=== PATIENT | female | born 1945 | race Caucasian/White ===

== ENCOUNTER 2017-03-09 19:49 | Observation (INO) | payer MEDICARE ==
[~2017-03-09] VITALS: Ht 162.6 cm; Wt 51.0 kg
[~2017-03-09 19:49] MED LIST: ATOR20TA42 PO; LORTA5 PO; METO50TA PO; ZOFR4TAB3 SL
[2017-03-09 19:51] VITALS: BP 224/113; PULSE 99; RESP 16; TEMP 98.1; O2SAT 98
[2017-03-09] MEDS ORDERED: METO50TA PO (21:03)
[2017-03-09] MEDS ORDERED: LIPI20TA PO (21:03)
--- NOTE | 2017-03-09 21:08 | RADRPT ---
EXAM DATE/TIME: 03/09/2017 20:36 [facility] COMPARISON: CHEST SINGLE AP, July 16, 2014, 10:28. INDICATIONS : Right side chest pain after falling MEDICAL HISTORY : Carcinoma, breast. SURGICAL HISTORY : Unknown ENCOUNTER: Initial ACUITY: 1 day PAIN SCORE: 6/10 LOCATION: Right chest FINDINGS: A single view of the chest demonstrates the lungs to be symmetrically aerated without evidence of mas s, infiltrate or effusion. The cardiomediastinal contours are unremarkable. Osseous structures are grossly intact. CONCLUSION: No acute cardiopulmonary disease demonstrated. Juarez Perez MD on March 09, 2017 at 21:06 Board Certified Radiologist. This report was verified electronically.
--- NOTE | 2017-03-09 21:13 | RADRPT ---
EXAM DATE/TIME: 03/09/2017 20:37 [facility] COMPARISON: RIBS RIGHT(W PA CXR MIN 3VWS), July 18, 2014, 11:05. INDICATIONS : Recent fall, right shoulder pain MEDICAL HISTORY : Carcinoma, breast. Fractured right clavicle 3 years ago SURGICAL HISTORY : Unknown ENCOUNTER: Initial ACUITY: 1 day PAIN SCORE: 6/10 LOCATION: Right shoulder FINDINGS: No acute fracture or subluxation seen of the right shoulder. There is an old, healed fracture of the distal end of the clavicles. 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 There is deve lopmental lateral downsloping of the acromion and mild subacromial spurring. Nonacute right rib fractures are noted. CONCLUSION: 1. No acute fracture or subluxation of the right shoulder. 2. Old fractures of multiple right ribs and the distal end of the right clavicle. Juarez Perez MD on March 09, 2017 at 21:10 Board Certified Radiologist. This report was verified electronically.
--- NOTE | 2017-03-09 21:36 | PD ---
HPI Chief Complaint: Injury Time Seen by Provider: 21:30 Travel History International Travel<30 days: No Contact w/Intl Traveler<30days: No Traveled to known affect area: No History of Present Illness HPI 71-year-old female presents to the ER today brought in by her family, apparently had a loss of balance and fall onto the right shoulder, EMS was called initially and had seen the patient but patient had refused transport on scene. According to patient's daughter, apparently she did have a loss of consciousness when she talked to EMS but the patient denies having lost consciousness. She currently complains of sternal pain especially with movements. She states that he got worse when the EMS tried to get her on a stretcher. She also complained of right shoulder pain. She denies any shortness of breath, or any other issues or injuries. She currently complains of 5-10 pain mostly in the right shoulder and sternal area. Modifying Factors: None Associated Signs & Symptoms: Lost balance and fall, possible head injury, sternal pain, right shoulder pain Risk Factors: Elderly PFSH Past Medical History Arthritis: Yes Asthma: No Heart Rhythm Problems: Yes (PT SAID SHE USED TO HAVE PROLAPSED MITRAL VALVE THAT "WENT AWAY") Cancer: Yes (RIGHT BREAST LUMPECTOMY 2000 w/ chemo, AXILLARY NODES) Cardiovascular Problems: Yes (MVP) High Cholesterol: Yes Chest Pain: No Congestive Heart Failure: No COPD: No Cerebrovascular Accident: No Diabetes: No Diminished Hearing: No GERD: No Glaucoma: No Headaches: No Hepatitis: No Hiatal Hernia: Yes Hypertension: Yes Musculoskeletal: Yes Neurologic: Yes (NEUROPATHY) Reproductive: No Respiratory: No Immunizations Current: Yes Migraines: No Myocardial Infarction: No Renal Failure: Yes Seizures: No Sleep Apnea: No Thyroid Disease: No Ulcer: No ?: Not Menopausal: Yes Past Surgical History Abdominal Surgery: No Appendectomy: No Cardiac Surgery: No Cholecystectomy: No Ear Surgery: No Endocrine Surgery: No Eye Surgery: No Genitourinary Surgery: No Gynecologic Surgery: Yes Oral Surgery: No Pacemaker: No Thoracic Surgery: No Tonsillectomy: Yes Other Surgery: Yes (LEFT WRIST/ RIGHT BREAST, RIGHT LYMPHNODES/lumpectomy) Social History Alcohol Use: Yes (2 DAILY) Tobacco Use: Yes (1 PPD) Substance Use: No Allergies-Medications (Allergen,Severity, Reaction): Coded Allergies: Penicillin (Unverified Allergy, Severe, 9/25/14) pt. states reaction was so long ago she no longer remembers reaction Sulfa (Unverified Adverse Reaction, Intermediate, 07/16/14) pt. states she gets yeast infections while on sulfa drugs Reported Meds & Prescriptions Reported Meds & Active Scripts Active Reported Metoprolol Tartrate 50 Mg Tab 50 Mg PO BID Lipitor (Atorvastatin Calcium) 20 Mg Tab 20 Mg PO HS Review of Systems Except as stated in HPI: all other systems reviewed are Neg Physical Exam Narrative GENERAL: Well-developed elderly white female patient in mild distress. Awake and oriented 3. Alcohol on breath. SKIN: Focused skin assessment warm/dry. HEAD: Atraumatic. Normocephalic. EYES: Pupils equal and round. No scleral icterus. No injection or drainage. ENT: No nasal bleeding or discharge. Mucous membranes pink and moist. NECK: Trachea midline. No JVD. CARDIOVASCULAR: Regular rate and rhythm. No murmur appreciated. RESPIRATORY: No accessory muscle use. Clear to auscultation. Breath sounds equal bilaterally. CHEST: Mildly tender to palpation of the anterior sternum area without deformity or crepitance. No retractions or use of accessory muscles. GASTROINTESTINAL: Abdomen soft, non-tender, nondistended. Hepatic and splenic margins not palpable. MUSCULOSKELETAL: No obvious deformities. No clubbing. No cyanosis. No edema. Right shoulder: Nontender to palpation. Nontender range of motion. No obvious acute deformities. NEUROLOGICAL: Awake and alert. No obvious cranial nerve deficits. Motor grossly within normal limits. Normal speech. PSYCHIATRIC: Appropriate mood and affect; insight and judgment normal. Data Data Last Documented VS Vital Signs Date Time Temp Pulse Resp B/P Pulse Ox O2 Delivery O2 Flow Rate FiO2 03/10/17 00:37 18 97 Room Air 03/09/17 19:51 98.1 99 224/113 Orders Shoulder, Complete (>2vws) (03/09/17 ) Chest, Single Ap (03/09/17 ) Ct Brain W/O Iv Contrast(Rout) (03/09/17 21:30) Ct Thorax/ Chest Wo Iv Contras (03/09/17 21:30) Ct Cerv Spine W/O Contrast (03/09/17 21:30) Acetamin-Hydrocod 325-5 Mg ([place] 5-325 (03/09/17 23:45) Electrocardiogram (03/10/17 00:26) Complete Blood Count With Diff (03/10/17:) Comprehensive Metabolic Panel (03/10/17:) Troponin I (03/10/17) Urinalysis - C+S If Indicated (03/10/17:) Ecg Monitoring (03/10/17:) Iv Access Insert/Monitor (03/10/17) Oximetry (03/10/17) Sodium Chloride 0.9% Flush (Ns Flush) (03/10/17 00:30) Labs Laboratory Tests Test 03/10/17 00:30 White Blood Count 9.4 TH/MM3 Red Blood Count 3.78 MIL/MM3 Hemoglobin 13.4 GM/DL Hematocrit 38.3 % Mean Corpuscular Volume 101.4 FL Mean Corpuscular Hemoglobin 35.6 PG Mean Corpuscular Hemoglobin 35.1 % Concent Red Cell Distribution Width 14.4 % Platelet Count 218 TH/MM3 Mean Platelet Volume 8.5 FL Neutrophils (%) (Auto) 79.4 % Lymphocytes (%) (Auto) 9.7 % Monocytes (%) (Auto) 9.6 % Eosinophils (%) (Auto) 0.5 % Basophils (%) (Auto) 0.8 % Neutrophils # (Auto) 7.5 TH/MM3 Lymphocytes # (Auto) 0.9 TH/MM3 Monocytes # (Auto) 0.9 TH/MM3 Eosinophils # (Auto) 0.0 TH/MM3 Basophils # (Auto) 0.1 TH/MM3 CBC Comment AUTO DIFF Differential Total Cells 100 Counted Neutrophils % (Manual) 73 % Band Neutrophils % 7 % Lymphocytes % 11 % Monocytes % 8 % Eosinophils % 1 % Neutrophils # (Manual) 7.5 TH/MM3 Differential Comment FINAL DIFF MANUAL Platelet Estimate NORMAL Platelet Morphology Comment NORMAL Sodium Level 139 MEQ/L Potassium Level 3.5 MEQ/L Chloride Level 100 MEQ/L Carbon Dioxide Level 27.1 MEQ/L Anion Gap 12 MEQ/L Blood Urea Nitrogen 9 MG/DL Creatinine 0.92 MG/DL Estimat Glomerular Filtration 60 ML/MIN Rate Random Glucose 101 MG/DL Calcium Level 9.5 MG/DL Total Bilirubin 1.1 MG/DL Aspartate Amino Transf 37 U/L (AST/SGOT) Alanine Aminotransferase 25 U/L (ALT/SGPT) Alkaline Phosphatase 79 U/L Troponin I 0.03 NG/ML Total Protein 7.8 GM/DL Albumin 4.1 GM/DL [facility] Medical Decision Making Medical Screen Exam Complete: Yes Emergency Medical Condition: Yes Medical Record Reviewed: Yes Interpretation(s) EKG shows NSR, no ST elevation or depression, and no arrhythmias. No significant T-wave inversions. Laboratory Tests Test 03/10/17 00:30 Red Blood Count 3.78 MIL/MM3 (4.00-5.30) Mean Corpuscular Volume 101.4 FL (80.0-100.0) Mean Corpuscular Hemoglobin 35.6 PG (27.0-34.0) Neutrophils (%) (Auto) 79.4 % (16.0-70.0) Monocytes (%) (Auto) 9.6 % (0.0-8.0) Lymphocytes # (Auto) 0.9 TH/MM3 (1.0-4.8) Neutrophils % (Manual) 73 % (16-70) Band Neutrophils % 7 % (0-6) Estimat Glomerular Filtration 60 ML/MIN (>89) Rate Total Bilirubin 1.1 MG/DL (0.2-1.0) Differential Diagnosis Loss of balance and fall, shoulder injury, sternal injury, possible head injury rule out acute intracranial injuries versus acute fractures or dislocations Narrative Course Initial workup shows a sternal fracture and rib fracture. She has no acute intracranial injuries. And initially I was contemplating releasing the patient. Patient is having a hard time getting up from bed, and apparently lives alone. Patient's relatives are fairly concerned because they state that they think that she is an alcoholic and she has had frequent falls, had been passing out and falling. At this point, workup was initiated. Workup did not show any signs of significant metabolic issues or other acute processes. At this point, patient is admitted for observation for further evaluation of syncopal episodes and also for pain control. Case was discussed with Dr. Arciniega for admission. He has requested that I place the patient on telemetry, out of bed with assistance, and heart healthy diet. Diagnosis Primary Impression: Syncopal episodes Additional Impressions: Sternal fracture Rib fracture Admitting Information Admitting Physician Requests: Admit Jeyson Barnett MD March 09, 2017 21:36
--- NOTE | 2017-03-09 22:40 | RADRPT ---
EXAM DATE/TIME: 03/09/2017 22:12 [facility] COMPARISON: CT BRAIN W/O CONTRAST, July 16, 2014, 11:06. INDICATIONS : Trauma; fall. RADIATION DOSE: 51.55 CTDIvol (mGy) MEDICAL HISTORY : Renal failure, chronic. Hypertension. Carcinoma, breast.Hiatal hernia SURGICAL HISTORY : None. ENCOUNTER: Initial ACUITY: 1 day PAIN SCALE: 5/10 LOCATION: cranial TECHNIQUE: Multiple contiguous axial images were obtained of the head. Using automated exposure control and adj ustment of the mA and/or kV according to patient size, radiation dose was kept as low as reasonably a chievable to obtain optimal diagnostic quality images. FINDINGS: No intracranial hemorrhage or hematoma. No mass, mass effect or midline shift. No evidence of an acut e ischemic event. Moderate ventriculomegaly is similar to the 2013 comparison. Skull is intact. CONCLUSION: No bleed or other acute intracranial abnormality. Long-term stable ventriculomegaly. Juarez Perez MD on March 09, 2017 at 22:37 Board Certified Radiologist. This report was verified electronically.
--- NOTE | 2017-03-09 22:54 | RADRPT ---
EXAM DATE/TIME: 03/09/2017 22:12 [facility] COMPARISON: No previous studies available for comparison. INDICATIONS : Trauma; fall. RADIATION DOSE: 3.33 CTDIvol (mGy) MEDICAL HISTORY : Renal failure, chronic. Hypertension. Carcinoma, breast. Hiatal hernia SURGICAL HISTORY : None. ENCOUNTER: Initial ACUITY: 1 day PAIN SCALE: 8/10 LOCATION: chest TECHNIQUE: Volumetric scanning of the chest was performed. Using automated exposure control and adjustment of t he mA and/or kV according to patient size, radiation dose was kept as low as reasonably achievable to obtain optimal diagnostic quality images. FINDINGS: There is a comminuted, minimally displaced fracture of the manubrium that is potentially acute and pl ease correlate clinically. The rest of the sternum is intact. No sternoclavicular subluxation. Multiple old right rib fractures are present. I don't see an acute rib fracture. Patient has a kyphotic thoracic spine. No thoracic spine fracture demonstrated. No infiltrate, effusion or pneumothorax. Mild pleural and parenchymal scarring of the right lung, carolyn nly at the apex and around the old right rib fractures. Normal heart size. There is right and left-sided coronary artery calcification. CONCLUSION: 1. Comminuted but minimally displaced fracture of the sternum, potentially acute. I don't see a media stinal hematoma, sternoclavicular subluxation or other acute complication. 2. Old right rib fractures. No acute rib fractures demonstrated. Juarez Perez MD on March 09, 2017 at 22:49 Board Certified Radiologist. This report was verified electronically.
--- NOTE | 2017-03-09 22:59 | RADRPT ---
EXAM DATE/TIME: 03/09/2017 22:12 [facility] COMPARISON: CT BRAIN W/O CONTRAST, March 09, 2017, 22:12. CT THORAX W/O CONTRAST, March 09, 2017, 22:12. INDICATIONS : Trauma; fall. RADIATION DOSE: 10.25 CTDIvol (mGy) MEDICAL HISTORY : Renal failure, chronic. Hypertension. Carcinoma, breast.Hiatal hernia SURGICAL HISTORY : None. ENCOUNTER: Initial ACUITY: 1 day PAIN SCALE: 5/10 LOCATION: neck TECHNIQUE: Volumetric scanning of the cervical spine was performed. Multiplanar reconstructions in the sagittal, coronal and oblique axial planes were performed. Using automated exposure control and adjustment o f the mA and/or kV according to patient size, radiation dose was kept as low as reasonably achievable to obtain optimal diagnostic quality images. FINDINGS: Cervical lordosis is exaggerated. No subluxations are demonstrated or other acute appearing malalignm ent. Vertebral bodies have normal height. No cortical break or trabecular disruption. There is moderate disc space narrowing from C3/C4-C6/C7 and moderate degrees of uncovertebral and fac et osteoarthritis essentially throughout. No perceptible on today's chest CT is a minimally displaced fracture posteriorly of the right first r ib end this is potentially acute, series 501 image 22. Fracture is near the costovertebral junction. CONCLUSION: Cervical spine is intact but there is a nondisplaced fracture posteriorly of the right first rib whic h is potentially acute. There is no pneumothorax or other associated acute complication seen. Juarez Perez MD on March 09, 2017 at 22:53 Board Certified Radiologist. This report was verified electronically.
[2017-03-09] MEDS ORDERED: ACETAMINOPHEN/HYDROcodone 325 MG/5 MG TAB PO ONE (23:45)
[2017-03-10] VITALS (10 sets, daily range): BP systolic 153–179; BP diastolic 82–95; PULSE 84–103; RESP 16–18; TEMP 98.2–99; O2SAT 94–99
[2017-03-10] MEDS ORDERED: SODIUM CHLORIDE 0.9% FLUSH 10 ML FLUSH IVF PRN (00:30)
[2017-03-10 00:54] LABS: AUTOMATED NEUTROPHIL # 7.5 TH/MM3 (1.8-7.7); BASOPHIL # 0.1 TH/MM3 (0-0.2); BASOPHIL % 0.8 % (0.0-2.0); EOSINOPHIL % 0.5 % (0.0-4.0); HEMATOCRIT 38.3 % (35.0-46.0); LYMPH % 9.7 % (9.0-44.0); LYMPHOCYTE # 0.9 TH/MM3 (1.0-4.8); MEAN CELL VOLUME 101.4 FL (80.0-100.0); MEAN CORPUSCULAR HEMOGLOBIN 35.6 PG (27.0-34.0); MEAN CORPUSCULAR HGB CONC 35.1 % (32.0-36.0); MONO % 9.6 % (0.0-8.0); NEUT % 79.4 % (16.0-70.0); PLATELET COUNT 218 TH/MM3 (150-450); RED BLOOD COUNT 3.78 MIL/MM3 (4.00-5.30); RED CELL DISTRIBUTION WIDTH 14.4 % (11.6-17.2); WHITE BLOOD COUNT 9.4 TH/MM3 (4.0-11.0)
[2017-03-10 01:05] LABS: ALT (GPT) 25 U/L (10-53); ANION GAP 12 MEQ/L (5-15); AST (GOT) 37 U/L (15-37); BICARBONATE 27.1 MEQ/L (21.0-32.0); BLOOD UREA NITROGEN 9 MG/DL (7-18); CHLORIDE 100 MEQ/L (98-107); GLOMERULAR FILTRATION RATE 60 ML/MIN (>89); POTASSIUM 3.5 MEQ/L (3.5-5.1); SODIUM (NA) 139 MEQ/L (136-145)
[2017-03-10 01:08] LABS: HEMO FLAGS AUTO DIFF
[2017-03-10 01:09] LABS: ALKALINE PHOSPHATASE 79 U/L (45-117); TOTAL BILIRUBIN ADULT 1.1 MG/DL (0.2-1.0)
[2017-03-10 02:10] LABS: BANDS 7 % (0-6); EOSINOPHILS 1 % (0-4); NEUTROPHIL # MANUAL DIFF 7.5 TH/MM3 (1.8-7.7); POLYS (SEG NEUTROPHILS) 73 % (16-70); WBC DIFF SAMPLE 100
[2017-03-10 02:11] LABS: PLATELET ESTIMATE SMEAR NORMAL (NORMAL); PLATELET MORPHOLOGY NORMAL (NORMAL); SCAN/DIFF FINAL DIFF MANUAL
[2017-03-10] MEDS ORDERED: ACETAMINOPHEN/HYDROcodone 325 MG/5 MG TAB PO PRN (04:45)
--- NOTE | 2017-03-10 13:39 | HHI.HP ---
HPI Service [facility] Hospitalists Primary Care Physician Anthony Cheung MD Admission Diagnosis questionable syncope/sternal fracture/rib fracture Travel History International Travel<30 Days: No Contact w/Intl Traveler <30 Da: No Traveled to Known Affected Are: No Past Family Social History Allergies: Coded Allergies: Penicillin (Unverified Allergy, Severe, 07/16/14) pt. states reaction was so long ago she no longer remembers reaction Sulfa (Unverified Adverse Reaction, Intermediate, 07/16/14) pt. states she gets yeast infections while on sulfa drugs Physical Exam Vital Signs Vital Signs Date Time Temp Pulse Resp B/P Pulse Ox O2 Delivery O2 Flow Rate FiO2 03/10/17 12:11 98.5 93 18 173/95 96 03/10/17 11:34 98.4 98 17 155/91 97 03/10/17 07:43 98.2 89 17 153/84 95 03/10/17 04:31 98.4 101 18 172/82 96 03/10/17 01:00 84 16 179/93 99 03/10/17 00:37 18 97 Room Air 03/09/17 19:51 98.1 99 16 224/113 98 Physical Exam GENERAL: This is a well-nourished, well-developed patient, in no apparent distress. SKIN: No rashes, ecchymoses or lesions. Cool and dry. HEAD: Atraumatic. Normocephalic. No temporal or scalp tenderness. EYES: Pupils equal round and reactive. Extraocular motions intact. No scleral icterus. No injection or drainage. ENT: Nose without bleeding, purulent drainage or septal hematoma. Throat without erythema, tonsillar hypertrophy or exudate. Uvula midline. Airway patent. NECK: Trachea midline. No JVD or lymphadenopathy. Supple, nontender, no meningeal signs. CARDIOVASCULAR: Regular rate and rhythm without murmurs, gallops, or rubs. RESPIRATORY: Clear to auscultation. Breath sounds equal bilaterally. No wheezes , rales, or rhonchi. GASTROINTESTINAL: Abdomen soft, non-tender, nondistended. No hepato-splenomegaly , or palpable masses. No guarding. MUSCULOSKELETAL: Extremities without clubbing, cyanosis, or edema. No joint tenderness, effusion, or edema noted. No calf tenderness. Negative Homans sign bilaterally. NEUROLOGICAL: Awake and alert. Cranial nerves II through XII intact. Motor and sensory grossly within normal limits. Five out of 5 muscle strength in all muscle groups. Normal speech. Laboratory Laboratory Tests Test 03/10/17 00:30 White Blood Count 9.4 Red Blood Count 3.78 Hemoglobin 13.4 Hematocrit 38.3 Mean Corpuscular Volume 101.4 Mean Corpuscular Hemoglobin 35.6 Mean Corpuscular Hemoglobin 35.1 Concent Red Cell Distribution Width 14.4 Platelet Count 218 Mean Platelet Volume 8.5 Neutrophils (%) (Auto) 79.4 Lymphocytes (%) (Auto) 9.7 Monocytes (%) (Auto) 9.6 Eosinophils (%) (Auto) 0.5 Basophils (%) (Auto) 0.8 Neutrophils # (Auto) 7.5 Lymphocytes # (Auto) 0.9 Monocytes # (Auto) 0.9 Eosinophils # (Auto) 0.0 Basophils # (Auto) 0.1 CBC Comment AUTO DIFF Differential Total Cells 100 Counted Neutrophils % (Manual) 73 Band Neutrophils % 7 Lymphocytes % 11 Monocytes % 8 Eosinophils % 1 Neutrophils # (Manual) 7.5 Differential Comment FINAL DIFF MANUAL Platelet Estimate NORMAL Platelet Morphology Comment NORMAL Sodium Level 139 Potassium Level 3.5 Chloride Level 100 Carbon Dioxide Level 27.1 Anion Gap 12 Blood Urea Nitrogen 9 Creatinine 0.92 Estimat Glomerular Filtration 60 Rate Random Glucose 101 Calcium Level 9.5 Total Bilirubin 1.1 Aspartate Amino Transf 37 (AST/SGOT) Alanine Aminotransferase 25 (ALT/SGPT) Alkaline Phosphatase 79 Troponin I 0.03 Total Protein 7.8 Albumin 4.1 Result Diagram: 03/10/17 0030 03/10/17 0030 Antonio Matthews MD March 10, 2017 13:39
[2017-03-10] MEDS ORDERED: NAPROXEN 500 MG TAB PO ONE (13:45)
[2017-03-10] MEDS ORDERED: cloNIDine HCL 0.1 MG TAB PO PRN (15:00)
[2017-03-10] MEDS ORDERED: LORazepam 1 MG TAB PO PRN (15:15)
[2017-03-10] MEDS ORDERED: LORazepam 2 MG/ML VIAL IV PUSH PRN (15:15)
--- NOTE | 2017-03-10 16:11 | EKG ---
Date Performed: 03/10/2017 Time Performed: 00:48:54 PTAGE: 71 years EKG: Sinus rhythm NORMAL ECG PREVIOUS TRACING : 08/25/2012 11.11 Compared to prior tracing no significant change DOCTOR: Cassandra De La Cruz Interpretating Date/Time 03/10/2017 16:09:33
[2017-03-10] MEDS ORDERED: MULTIVITAMIN TAB PO ONE (18:45)
[2017-03-10] MEDS ORDERED: CYANOCOBALAMIN 1000 MCG/ML VIAL IM ONE (18:45)
[2017-03-10] MEDS ORDERED: THIAMINE HCL 100 MG TAB PO ONE (18:45)
[2017-03-10] MEDS: NAPROXEN 500 MG TAB PO SCH (20:49)
[2017-03-10] MEDS: chlordiazePOXIDE 25 MG CAP PO SCH (23:15)
[2017-03-11 04:19] VITALS: BP 168/74; PULSE 97; RESP 18; TEMP 97.8; O2SAT 97
[2017-03-11] MEDS: chlordiazePOXIDE 25 MG CAP PO SCH ×3 (05:26→22:43)
[2017-03-11 05:49] LABS: AUTOMATED NEUTROPHIL # 2.8 TH/MM3 (1.8-7.7); BASOPHIL % 0.6 % (0.0-2.0); EOSINOPHIL # 0.1 TH/MM3 (0-0.4); EOSINOPHIL % 1.3 % (0.0-4.0); HEMATOCRIT 35.7 % (35.0-46.0); HEMO FLAGS DIFF FINAL; LYMPH % 21.8 % (9.0-44.0); MEAN CELL VOLUME 101.3 FL (80.0-100.0); MEAN CORPUSCULAR HEMOGLOBIN 35.1 PG (27.0-34.0); MEAN CORPUSCULAR HGB CONC 34.7 % (32.0-36.0); MONO % 15.7 % (0.0-8.0); NEUT % 60.6 % (16.0-70.0); PLATELET COUNT 179 TH/MM3 (150-450); RED BLOOD COUNT 3.53 MIL/MM3 (4.00-5.30); RED CELL DISTRIBUTION WIDTH 14.2 % (11.6-17.2); WHITE BLOOD COUNT 4.5 TH/MM3 (4.0-11.0)
[2017-03-11 06:04] LABS: POTASSIUM 3.2 MEQ/L (3.5-5.1)
[2017-03-11 06:10] LABS: BACTERIA, URINE OCC /hpf; BLOOD, URINE NEG (NEG); GLUCOSE,URINE NEG (NEG); KETONE, URINE NEG (NEG); MUCUS URINE FEW /lpf (OCC); NITRITE,URINE NEG (NEG); SQUAMOUS EPITHELIAL CELL URINE 16 /hpf (0-5); URINE COLOR YELLOW (YELLW/STRAW)
[2017-03-11 06:11] LABS: COMMENT (UR) CULTURE INDICATED; CULTURE IF INDICATED CULTURE INDICATED
[2017-03-11 07:44] VITALS: BP 136/78; PULSE 103; RESP 16; TEMP 98.4; O2SAT 94
[2017-03-11] MEDS ORDERED: POTASSIUM CHLORIDE 20 MEQ CONTROLLED RELEASE TAB PO ONE (08:00)
[2017-03-11] MEDS: NAPROXEN 500 MG TAB PO SCH ×2 (08:23→19:12)
[2017-03-11] MEDS: MULTIVITAMIN TAB PO SCH (08:24)
[2017-03-11] MEDS: THIAMINE HCL 100 MG TAB PO SCH (08:24)
[2017-03-11 12:24] VITALS: BP 137/78; PULSE 122; RESP 18; TEMP 98.6; O2SAT 98
--- NOTE | 2017-03-11 12:45 | HHI.PR ---
Subjective Remarks in chair. reading paper. Objective Vitals heart reg lung cta abd s/nt ext no edema Vital Signs Date Time Temp Pulse Resp B/P Pulse Ox O2 Delivery O2 Flow Rate FiO2 03/11/17 12:24 98.6 122 18 137/78 98 03/11/17 07:44 98.4 103 16 136/78 94 03/11/17 04:19 97.8 97 18 168/74 97 03/10/17 23:08 98.9 90 18 173/90 99 03/10/17 22:39 18 03/10/17 20:28 99.0 94 18 155/87 94 03/10/17 15:43 98.4 103 18 158/91 95 03/10/17 03/10/17 03/11/17 14:59 22:59 06:59 Intake Total 200 ml Balance 200 ml Intake Oral 200 ml # Voids 1 2 Result Diagram: 03/11/17 0440 03/11/17 0440 A/P Problem List: (1) Syncopal episodes Status: Acute Plan: Pt is 71 yo past hx breast ca lumpectomy, 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 htn sternal fx with problable rib fx. no ptx long talk with niece. Pt daughter in [place]..family confirms etoh abuse at home Pt eval...will need snf etoh w/d precaution librium and prn ativan mv.thiamine vit b12 injections bp control replace electrolytes. inc. spirometer. if stable then d/c to snf. Sunday (2) Sternal fracture Status: Acute Plan: see above (3) Rib fracture Status: Acute Plan: see above (4) Breast CA Status: Resolved (5) B12 deficiency Status: Acute Plan: see above (6) Falls Status: Acute Plan: see above (7) Peripheral neuropathy Status: Chronic (8) ETOH abuse Status: Acute Plan: see above (9) HTN (hypertension) Status: Acute Plan: see above Antonio Matthews MD March 11, 2017 12:45
[2017-03-11] MEDS: METOPROLOL TARTRATE 50 MG TAB PO SCH ×2 (14:11→19:11)
[2017-03-11 16:00] VITALS: BP 127/73; PULSE 72; RESP 17; TEMP 97.7; O2SAT 99
[2017-03-11] MEDS ORDERED: CYANOCOBALAMIN 1000 MCG/ML VIAL IM ONE (19:00)
[2017-03-11 19:43] VITALS: BP 129/72; PULSE 76; RESP 18; TEMP 97.8; O2SAT 98
[2017-03-11] MEDS ORDERED: ATORVASTATIN 20 MG TAB PO SCH (21:00)
[2017-03-12] VITALS: BP 147/74; PULSE 78; RESP 20; TEMP 98.7; O2SAT 95
[2017-03-12 04:00] VITALS: BP 124/70; PULSE 64; RESP 20; TEMP 97.7; O2SAT 95
[2017-03-12] MEDS: chlordiazePOXIDE 25 MG CAP PO SCH (05:24)
[2017-03-12 07:46] VITALS: BP 128/73; PULSE 78; RESP 18; TEMP 96.8; O2SAT 95
[2017-03-12] MEDS: THIAMINE HCL 100 MG TAB PO SCH (08:30)
[2017-03-12] MEDS: METOPROLOL TARTRATE 50 MG TAB PO SCH (08:30)
[2017-03-12] MEDS: MULTIVITAMIN TAB PO SCH (08:30)
[2017-03-12] MEDS: NAPROXEN 500 MG TAB PO SCH (08:31)
[2017-03-12] MEDS ORDERED: VITA100T2 PO (08:46)
[2017-03-12] MEDS ORDERED: THERTAB15 PO (08:46)
--- NOTE | 2017-03-12 08:47 | HHI.DCPOC ---
Discharge Care Plan Diagnosis: (1) Syncopal episodes (2) ETOH abuse (3) Sternal fracture (4) Rib fracture (5) B12 deficiency (6) Breast CA (7) HTN (hypertension) (8) Falls (9) Peripheral neuropathy Goals to Promote Your Health * To prevent worsening of your condition and complications * To maintain your health at the optimal level Directions to Meet Your Goals Take your medications as prescribed Follow your dietary instruction Follow activity as directed Keep your appointments as scheduled Take your immunizations and boosters as scheduled If your symptoms worsen call your PCP, if no PCP go to Urgent Care Center or Emergency Room Smoking is Dangerous to Your Health. Avoid second hand smoke Call the 24-hour hour crisis hotline for domestic abuse at [place] March 12, 2017 08:47
[2017-03-12] MEDS ORDERED: RESP: ALBUTEROL 2.5 MG/IPRATROPIUM 0.5 MG NEB (PRN) NEB (09:00)
[2017-03-12] MEDS ORDERED: RESP: ALBUTEROL 2.5 MG/IPRATROPIUM 0.5 MG NEB (PRN) NEB ONE (09:00)
[2017-03-12] MEDS ORDERED: IPRASOL INH (09:40)
--- NOTE | 2017-03-12 10:01 | HHI.DS ---
Discharge Summary Admission Date March 10, 2017 at 02:38 Discharge Date: March 12, 2017 Admitting Diagnosis questionable syncope/sternal fracture/rib fracture (1) Syncopal episodes Diagnosis: Principal (2) Sternal fracture Diagnosis: Secondary (3) Rib fracture Diagnosis: Secondary (4) Breast CA Diagnosis: Secondary (5) B12 deficiency Diagnosis: Secondary (6) Falls Diagnosis: Secondary (7) Peripheral neuropathy Diagnosis: Secondary (8) ETOH abuse Diagnosis: Secondary (9) HTN (hypertension) Diagnosis: Secondary Brief History Ms. Whitaker is a 71 y/o female with breast cancer with peripheral neuropathy related to chemo and HTN who presented to the ED after a reported fall at home. Pt was brought in by her family, and reportedly had fallen at home after a loss of balance and had fallen onto the right shoulder. EMS was called initially and had seen the patient but patient had refused transport on scene. According to patient's niece, the pt did have a loss of consciousness when she talked to EMS but the patient denies having lost consciousness. She currently complains of sternal pain especially with movements. She denies any shortness of breath, or any other issues or injuries. CBC/BMP: 03/11/17 0440 03/11/17 0440 Significant Findings Laboratory Tests Test 03/10/17 03/11/17 03/11/17 00:30 04:40 05:45 Estimat Glomerular Filtration 60 ML/MIN (>89) 65 ML/MIN (>89) Rate Total Bilirubin 1.1 MG/DL (0.2-1.0) Red Blood Count 3.78 MIL/MM3 3.53 MIL/MM3 (4.00-5.30) (4.00-5.30) Mean Corpuscular Volume 101.4 FL 101.3 FL (80.0-100.0) (80.0-100.0) Mean Corpuscular Hemoglobin 35.6 PG 35.1 PG (27.0-34.0) (27.0-34.0) Neutrophils (%) (Auto) 79.4 % (16.0-70.0) Monocytes (%) (Auto) 9.6 % (0.0-8.0) 15.7 % (0.0-8.0) Lymphocytes # (Auto) 0.9 TH/MM3 (1.0-4.8) Neutrophils % (Manual) 73 % (16-70) Band Neutrophils % 7 % (0-6) Potassium Level 3.2 MEQ/L (3.5-5.1) Urine Turbidity HAZY (CLEAR) Urine Leukocyte Esterase MOD (NEG) Urine WBC 9 /hpf (0-5) Urine Bacteria OCC /hpf (NONE) Urine Mucus FEW /lpf (OCC) Imaging Last Impressions Head CT 03/09/172129 Signed Impressions: Service Date/Time: Thursday, March 09, 2017 22:12 - CONCLUSION: No bleed or other acute intracranial abnormality. Long-term stable ventriculomegaly. Juarez Perez MD Chest CT 03/09/172129 Signed Impressions: Service Date/Time: Thursday, March 09, 2017 22:12 - CONCLUSION: 1. Comminuted but minimally displaced fracture of the sternum, potentially acute. I don't see a mediastinal hematoma, sternoclavicular subluxation or other acute complication. 2. Old right rib fractures. No acute rib fractures demonstrated. Juarez Perez MD Cervical Spine CT 03/09/172129 Signed Impressions: Service Date/Time: Thursday, March 09, 2017 22:12 - CONCLUSION: Cervical spine is intact but there is a nondisplaced fracture posteriorly of the right first rib which is potentially acute. There is no pneumothorax or other associated acute complication seen. Juarez Perez MD Shoulder X-Ray 03/09/17 0000 Signed Impressions: Service Date/Time: Thursday, March 09, 2017 20:37 - CONCLUSION: 1. No acute fracture or subluxation of the right shoulder. 2. Old fractures of multiple right ribs and the distal end of the right clavicle. Juarez Perez MD Chest X-Ray 03/09/17 0000 Signed Impressions: Service Date/Time: Thursday, March 09, 2017 20:36 - CONCLUSION: No acute cardiopulmonary disease demonstrated. Juarez Perez MD PE at Discharge General: NAD, AAOx3 Chest: Some mild wheeze bilaterally Cardiac: Regular Abd: +BS, soft ND/NT Ext: No edema Hospital Course Pt was admitted for a reported syncopal episode and has reportedly been having falls at home. Pt has hx of breast cancer and peripheral neuropathy related to chemo. She has reportedly been having intermittent falls at home. Pts family reports that the pt has hx of regular alcohol use and tobacco use. She does seem to have some cognitive deficits which may be secondary to EtOH/Vit b12 related. Pts falls at home felt to likely be related to her EtOH abuse. Chest CT revealed comminuted but minimally displaced fracture of the sternum, potentially acute. No noted mediastinal hematoma, sternoclavicular subluxation or other acute complication. Cervical spine CT noted cervical spine is intact but there is a nondisplaced fracture posteriorly of the right first rib which is potentially acute. There is no pneumothorax or other associated acute complication seen. Pt was treated for possible alcohol withdrawal precautions with scheduled Librium and PRN Ativan. She was also given MVI and Thiamine and a B12 injection as her B12 level was low/normal. Pt was evaluated by PT and only walked 10' and was recommended to be discharged to rehab. Pt was encouraged to use the incentive spirometer. She did have some minimal wheezing noted on the day of discharge and so she will be scheduled for Duoneb nebulizer treatments Q8H x 3 days while at rehab and then can be Q6H PRN after that. Pt will be followed at rehab by her PCP, Dr. Cheung. Pt Condition on Discharge: Stable Discharge Disposition: Discharge to SNF Discharge Instructions DIET: Follow Instructions for: As Tolerated, No Restrictions Activities you can perform: Regular-No Restrictions Follow up Referrals: PCP Follow-up - [address] Vaughan New Medications: Ipratropium-Albuterol Neb (Duoneb) 0.5-2.5 Mg/3 Ml Neb 1 NEBULE INH DIRECTED Give scheduled Q8H x 3 days, then decrease to Q6H PRN SOB/Wheezing Breathing Treatment #90 Ref 0 NEBULE Multiple Vitamin (Thera/Beta-Carotene) 1 Tab Tab 1 TAB PO DAILY etoh use #31 TAB Thiamine (Vitamin B-1) 100 Mg Tab 100 MG PO DAILY etoh use #31 TAB Continued Medications: Atorvastatin (Lipitor) 20 Mg Tab 20 MG PO HS Cholesterol Management #30 Ref 0 TAB Metoprolol Tartrate (Metoprolol Tartrate) 50 Mg Tab 50 MG PO BID #60 Ref 0 TAB Additional Information Patient examined. Assessment and plan formulated with Catrachita Joy PA-C. I agree with the above. Catrachita Joy March 12, 2017 10:01 Abdulaziz Smith DO March 13, 2017 02:20
[2017-03-12 11:17] VITALS: BP 106/63; PULSE 78; RESP 18; TEMP 96.6; O2SAT 97
[2017-03-12] MEDS ORDERED: LORA-474 PO (12:01)
== END 2017-03-12 12:35 ==
LOC: NEPC 19:49 → NEDA 03-10 02:38 → NEPGCP 03-10 04:16
PROVIDERS: ADMIT Hospitalist; ATTEND Hospitalist
DX: R55 Syncope and collapse (principal); S22.31XA Fracture of one rib, right side, initial encounter for closed fracture; S22.20XA Unspecified fracture of sternum, initial encounter for closed fracture; E53.8 Deficiency of other specified B group vitamins; M19.90 Unspecified osteoarthritis, unspecified site; G62.9 Polyneuropathy, unspecified; I10 Essential (primary) hypertension; E78.00 Pure hypercholesterolemia, unspecified; F10.10 Alcohol abuse, uncomplicated; Z88.0 Allergy status to penicillin; Z88.2 Allergy status to sulfonamides; Z85.3 Personal history of malignant neoplasm of breast; W18.30XA Fall on same level, unspecified, initial encounter; Y92.009 Unspecified place in unspecified non-institutional (private) residence as the place of occurrence of the external cause
CPT/HCPCS: 70450; 71010; 71250; 72125; 73030; 80048; 80053; 81001; 82607; 84443; 84484; 85007; 85025; 85027; 87086; 93005; 94150; 97163; 99285; G8987; G8988; J3420; G0378

== ENCOUNTER 2017-04-07 22:36 | Inpatient (IN) | payer MEDICARE ==
[~2017-04-07] VITALS: Ht 162.6 cm; Wt 53.1 kg
[~2017-04-07 22:36] MED LIST changes: -ATOR20TA42 PO; +IPRASOL INH; +LIPI20TA PO; +LORA-474 PO; -LORTA5 PO; +THERTAB15 PO; +VITA100T2 PO; -ZOFR4TAB3 SL
--- NOTE | 2017-04-07 23:26 | PD ---
HPI Chief Complaint: Fall Time Seen by Provider: 23:18 Travel History International Travel<30 days: No Contact w/Intl Traveler<30days: No Traveled to known affect area: No History of Present Illness HPI 71-year-old female presents to the emergency prior by EMS transport from home for right hip pain status post non-syncopal slip and fall. Patient was using a walker the time and felt both of her legs becoming weak and fell to the floor injuring her right hip. Patient unable to stand afterwards with her without assistance from her caregivers. Patient has home health service at night. Patient denies hitting her head having loss of consciousness injuring her neck chest abdomen or other extremity. Patient takes no blood thinning agents. Patient's had no recent febrile illness or respiratory illness. Patient denies any chest pain or shortness of breath at this time. PFSH Past Medical History Narrative Medical Dyslipidemia, mitral valve prolapse, breast cancer with lumpectomy chemotherapy radiation therapy hiatal hernia neuropathy left wrist surgery; no tobacco use no alcohol use Arthritis: Yes Asthma: No Heart Rhythm Problems: Yes (PT SAID SHE USED TO HAVE PROLAPSED MITRAL VALVE THAT "WENT AWAY") Cancer: Yes (RIGHT BREAST LUMPECTOMY 2000 w/ chemo, AXILLARY NODES) Cardiovascular Problems: Yes (MVP) High Cholesterol: Yes Chest Pain: No Congestive Heart Failure: No COPD: No Cerebrovascular Accident: No Diabetes: No Diminished Hearing: No GERD: No Glaucoma: No Headaches: No Hepatitis: No Hiatal Hernia: Yes Hypertension: Yes Musculoskeletal: Yes Neurologic: Yes (NEUROPATHY) Reproductive: No Respiratory: No Immunizations Current: Yes Migraines: No Myocardial Infarction: No Renal Failure: Yes Seizures: No Sleep Apnea: No Thyroid Disease: No Ulcer: No Tetanus Vaccination: < 5 Years Influenza Vaccination: Yes Menopausal: Yes Past Surgical History Abdominal Surgery: No Appendectomy: No Cardiac Surgery: No Cholecystectomy: No Ear Surgery: No Endocrine Surgery: No Eye Surgery: No Genitourinary Surgery: No Gynecologic Surgery: Yes Oral Surgery: No Pacemaker: No Thoracic Surgery: No Tonsillectomy: Yes Other Surgery: Yes (LEFT WRIST/ RIGHT BREAST, RIGHT LYMPHNODES/lumpectomy) Social History Alcohol Use: No (2 DAILY/ QUIT 1 MONTH AGO) Tobacco Use: No (1 PPD/ QUIT 1 MONTH AGO) Substance Use: No Allergies-Medications (Allergen,Severity, Reaction): Coded Allergies: Penicillin (Unverified Allergy, Severe, 04/07/17) pt. states reaction was so long ago she no longer remembers reaction Sulfa (Unverified Adverse Reaction, Intermediate, 04/07/17) pt. states she gets yeast infections while on sulfa drugs Reported Meds & Prescriptions Reported Meds & Active Scripts Active Thera/Beta-Carotene (Multiple Vitamin) 1 Tab Tab 1 Tab PO DAILY Reported Metoprolol Tartrate 50 Mg Tab 50 Mg PO BID Lipitor (Atorvastatin Calcium) 20 Mg Tab 20 Mg PO HS Review of Systems Except as stated in HPI: all other systems reviewed are Neg General / Constitutional: No: Fever HENT: No: Congestion Cardiovascular: No: Chest Pain or Discomfort Respiratory: No: Shortness of Breath Gastrointestinal: No: Abdominal Pain Genitourinary: No: Flank Pain Musculoskeletal: Positive: Pain (right hip) Skin: No Rash Neurologic: No: Weakness Psychiatric: No: Anxiety Hematologic/Lymphatic: No: Lymph Node Enlargement Physical Exam Narrative GENERAL: Well-developed thin female in no acute distress no respiratory distress SKIN: Warm and dry. HEAD: Normocephalic. EYES: No scleral icterus. No injection or drainage. NECK: Supple, trachea midline. No JVD or lymphadenopathy. CARDIOVASCULAR: Regular rate and rhythm without murmurs, gallops, or rubs. RESPIRATORY: Breath sounds equal bilaterally. No accessory muscle use. GASTROINTESTINAL: Abdomen soft, non-tender, nondistended. MUSCULOSKELETAL: No cyanosis, or edema. No internal/external rotation or shortening however decreased range of motion secondary to pain of right lower extremity at hip; bilateral dorsalis pedis pulses 2+ to palpation. BACK: Nontender without obvious deformity. No CVA tenderness. Data Data Last Documented VS Vital Signs Date Time Temp Pulse Resp B/P Pulse Ox O2 Delivery O2 Flow Rate FiO2 04/08/17 01:00 55 16 164/76 95 Room Air Orders Hip, Uni(Ap&Lat) W Ap Pelvis (04/07/17 22:49) Electrocardiogram (04/07/17 23:18) Complete Blood Count With Diff (04/07/17 23:18) Comprehensive Metabolic Panel (04/07/17 23:18) Urinalysis - C+S If Indicated (04/07/17 23:18) Chest, Single Ap (04/07/17 23:18) Iv Access Insert/Monitor (04/07/17 23:18) Prothrombin Time / Inr (Pt) (04/08/17 00:28) Act Partial Throm Time (Ptt) (04/08/17 00:28) Type And Screen (04/08/17 00:28) Oximetry (04/08/17 00:28) Ecg Monitoring (04/08/17 00:28) Sodium Chloride 0.9% Flush (Ns Flush) (04/08/17 00:30) Urinary Catheter Insert/Apply (04/08/17 00:37) Ondansetron Inj (Zofran Inj) (04/08/17 01:00) Morphine Inj (Morphine Inj) (04/08/17 01:00) Labs Laboratory Tests Test 04/07/17 04/08/17 04/08/17 23:40 01:00 01:10 White Blood Count 8.9 TH/MM3 Red Blood Count 3.45 MIL/MM3 Hemoglobin 11.6 GM/DL Hematocrit 33.8 % Mean Corpuscular Volume 98.1 FL Mean Corpuscular Hemoglobin 33.7 PG Mean Corpuscular Hemoglobin 34.4 % Concent Red Cell Distribution Width 13.0 % Platelet Count 218 TH/MM3 Mean Platelet Volume 8.8 FL Neutrophils (%) (Auto) 79.3 % Lymphocytes (%) (Auto) 10.4 % Monocytes (%) (Auto) 8.8 % Eosinophils (%) (Auto) 1.1 % Basophils (%) (Auto) 0.4 % Neutrophils # (Auto) 7.1 TH/MM3 Lymphocytes # (Auto) 0.9 TH/MM3 Monocytes # (Auto) 0.8 TH/MM3 Eosinophils # (Auto) 0.1 TH/MM3 Basophils # (Auto) 0.0 TH/MM3 CBC Comment DIFF FINAL Differential Comment Sodium Level 138 MEQ/L Potassium Level 4.3 MEQ/L Chloride Level 104 MEQ/L Carbon Dioxide Level 26.3 MEQ/L Anion Gap 8 MEQ/L Blood Urea Nitrogen 16 MG/DL Creatinine 1.09 MG/DL Estimat Glomerular Filtration 49 ML/MIN Rate Random Glucose 103 MG/DL Calcium Level 9.3 MG/DL Total Bilirubin 0.8 MG/DL Aspartate Amino Transf 24 U/L (AST/SGOT) Alanine Aminotransferase 28 U/L (ALT/SGPT) Alkaline Phosphatase 86 U/L Total Protein 7.0 GM/DL Albumin 3.8 GM/DL Prothrombin Time 11.1 SEC Prothromb Time International 1.0 RATIO Ratio Activated Partial 27.0 SEC Thromboplast Time Blood Type O POSITIVE Urine Color YELLOW Urine Turbidity CLEAR Urine pH 5.5 Urine Specific [place] 1.013 Urine Protein NEG mg/dL Urine Glucose (UA) NEG mg/dL Urine Ketones 10 mg/dL Urine Occult Blood NEG Urine Nitrite NEG Urine Bilirubin NEG Urine Urobilinogen LESS THAN 2.0 MG/DL Urine Leukocyte Esterase NEG Urine RBC 1 /hpf Urine WBC 1 /hpf Microscopic Urinalysis Comment CATH-CULT NOT IND MDM Medical Decision Making Medical Screen Exam Complete: Yes Emergency Medical Condition: Yes Medical Record Reviewed: Yes Interpretation(s) Right hip with pelvis: Right femoral neck fracture with mild impaction and displacement Chest x-ray no acute process EKG normal sinus rhythm rate [address] elevation or injury pattern change noted CBC & BMP Diagram 04/07/17 23:40 Vital Signs Date Time Temp Pulse Resp B/P Pulse Ox O2 Delivery O2 Flow Rate FiO2 04/08/17 01:00 55 16 164/76 95 Room Air UA: ketones Differential Diagnosis Right hip fracture, contusion, dislocation, pelvic fracture Narrative Course Imaging study ordered labs collected and sent for resulting Imaging study consistent with right femoral neck fracture with mild impaction and displacement call placed to orthopedist Patient informed imaging is consistent with right hip fracture Discussed with Dr. Melchor-nothing by mouth after midnight admitted to medicine no traction Discussed with patient's primary Dr. Cheung admitted to Dr. Matthews nothing by mouth Physician Communication Physician Communication Call placed to orthopedist, call back 01:34 admit to med npo no traction; call placed to [facility]-- discussed with Dr Velez admit to Dr Higgins Diagnosis Primary Impression: Fracture of femoral neck, right, closed Qualified Code: S72.001A - Closed fracture of neck of right femur, initial encounter Admitting Information Admitting Physician Requests: Admit Laura Anthony MD Apr 07, 2017 23:26
--- NOTE | 2017-04-07 23:58 | RADRPT ---
EXAM DATE/TIME: 04/07/2017 23:34 [facility] COMPARISON: No previous studies available for comparison. INDICATIONS : Right hip pain post fall. MEDICAL HISTORY : Renal failure, chronic. Hypertension Carcinoma, breast. Hiatal hernia SURGICAL HISTORY : None. ENCOUNTER: Initial ACUITY: 1 day PAIN SCORE: 10/10 LOCATION: Right Hip FINDINGS: 3 views of the right hip and pelvis. Right femoral neck fracture is identified with mild impaction an d displacement. Hip joint alignment within normal limits. CONCLUSION: Right femoral neck fracture. Harjinder Youssef MD on April 07, 2017 at 23:56 Board Certified Radiologist. This report was verified electronically.
[2017-04-08] VITALS (8 sets, daily range): BP systolic 119–164; BP diastolic 67–79; PULSE 55–73; RESP 16–18; TEMP 95.7–98.1; O2SAT 92–100
[2017-04-08] LABS: AUTOMATED NEUTROPHIL # 7.1 TH/MM3 (1.8-7.7); BASOPHIL % 0.4 % (0.0-2.0); EOSINOPHIL # 0.1 TH/MM3 (0-0.4); EOSINOPHIL % 1.1 % (0.0-4.0); HEMATOCRIT 33.8 % (35.0-46.0); HEMO FLAGS DIFF FINAL; LYMPH % 10.4 % (9.0-44.0); LYMPHOCYTE # 0.9 TH/MM3 (1.0-4.8); MEAN CELL VOLUME 98.1 FL (80.0-100.0); MEAN CORPUSCULAR HEMOGLOBIN 33.7 PG (27.0-34.0); MEAN CORPUSCULAR HGB CONC 34.4 % (32.0-36.0); MONO % 8.8 % (0.0-8.0); NEUT % 79.3 % (16.0-70.0); PLATELET COUNT 218 TH/MM3 (150-450); RED BLOOD COUNT 3.45 MIL/MM3 (4.00-5.30); WHITE BLOOD COUNT 8.9 TH/MM3 (4.0-11.0)
--- NOTE | 2017-04-08 00:03 | RADRPT ---
EXAM DATE/TIME: 04/07/2017 23:46 [facility] COMPARISON: CT THORAX W/O CONTRAST, March 09, 2017, 22:12. CHEST SINGLE AP, March 09, 2017, 20:36. INDICATIONS : Shortness of breath. MEDICAL HISTORY : Renal failure, chronic. Hypertension Hiatal hernia. breast ca SURGICAL HISTORY : None. ENCOUNTER: Initial ACUITY: 1 day PAIN SCORE: 0/10 LOCATION: Bilateral chest FINDINGS: Single AP view of the chest. Chronic linear opacity at the right apex indicating scarring. The lungs are otherwise clear. Cardiomediastinal silhouette within normal limits. No evidence of pleural effusi on or pneumothorax. CONCLUSION: No acute cardiopulmonary disease identified. Harjinder Youssef MD on April 07, 2017 at 23:59 Board Certified Radiologist. This report was verified electronically.
[2017-04-08 00:20] LABS: ANION GAP 8 MEQ/L (5-15); AST (GOT) 24 U/L (15-37); BICARBONATE 26.3 MEQ/L (21.0-32.0); BLOOD UREA NITROGEN 16 MG/DL (7-18); CHLORIDE 104 MEQ/L (98-107); GLOMERULAR FILTRATION RATE 49 ML/MIN (>89); POTASSIUM 4.3 MEQ/L (3.5-5.1); SODIUM (NA) 138 MEQ/L (136-145)
[2017-04-08 00:26] LABS: ALKALINE PHOSPHATASE 86 U/L (45-117); ALT (GPT) 28 U/L (10-53); TOTAL BILIRUBIN ADULT 0.8 MG/DL (0.2-1.0)
[2017-04-08] MEDS ORDERED: SODIUM CHLORIDE 0.9% FLUSH 10 ML FLUSH IVF PRN ×2 (00:30→01:45)
[2017-04-08] MEDS ORDERED: MORPHINE SULFATE 4 MG/ML INJ IV PUSH ONE (01:00)
[2017-04-08] MEDS ORDERED: ONDANSETRON HCL 4 MG/2 ML VIAL IV PUSH ONE ×2 (01:00→12:00)
[2017-04-08 01:26] LABS: BLOOD, URINE NEG (NEG); GLUCOSE,URINE NEG (NEG); KETONE, URINE 10 mg/dL (NEG); NITRITE,URINE NEG (NEG); PH, URINE 5.5 (5.0-8.5); URINE COLOR YELLOW (YELLW/STRAW)
[2017-04-08 01:28] LABS: COMMENT (UR) CATH-CULT NOT IND; CULTURE IF INDICATED CATH CULTURE NOT IND
[2017-04-08 01:40] LABS: PROTHROMBIN TIME - PATIENT 11.1 SEC (9.8-11.6)
[2017-04-08] MEDS ORDERED: CHLORHEXIDINE GLUCONATE 2 % 1 PACK (2 CLOTHS) TOPICAL PRN (03:45)
[2017-04-08] MEDS ORDERED: POVIDONE IODINE 5% (ANTISEPSIS KIT) 4 APPLICATIONS EACH NARE PRN (03:45)
[2017-04-08] MEDS ORDERED: INSULIN HUMAN REGULAR 1,000 UNITS/10 ML VIAL SQ PRN (03:45)
[2017-04-08] MEDS ORDERED: LACTATED RINGER'S 1000 ML IV PRN (03:45)
[2017-04-08] MEDS ORDERED: SODIUM CHLORID 0.9% 500 ML IV PRN (03:45)
[2017-04-08] MEDS ORDERED: MORPHINE SULFATE 4 MG/ML INJ IV PUSH PRN ×2 (05:45)
[2017-04-08] MEDS ORDERED: METOPROLOL TARTRATE 25 MG TAB PO PRN (07:15)
[2017-04-08] MEDS: SODIUM CHLORIDE 0.9% FLUSH 10 ML FLUSH IV FLUSH SCH ×3 (07:48→20:19)
[2017-04-08] MEDS ORDERED: GENTAMICIN SULFATE 80 MG/2 ML VIAL ONE (09:05)
[2017-04-08] MEDS ORDERED: VANCOMYCIN HCL 1000 MG VIAL ONE (09:05)
--- NOTE | 2017-04-08 10:16 | PD.CONS ---
cc: Alexander Pratt Jr., MD HPI Service Orthopedic Surgeons Consult Requested By Primary Care Physician Anthony Cheung MD Admission Diagnosis right hip fracture Diagnoses: Chief Complaint: Right valgus impacted femoral neck fracture History of Present Illness 71-year-old female past medical history of mitral valve prolapse status post fall yesterday prior to being taken to the Emergency department complaining of right hip pain and inability bear weight. X-ray taken the emergency department reveal a valgus impacted right femoral neck fracture. Denies any head injuries. Denies loss of consciousness. Currently patient's pain is sharp, 3 out of 10, exacerbated by any range of motion, relieved at rest and with IV pain medicine, pain is sharp nonradiating, not associated with any paresthesia and numbness to the right lower extremity. status post non-syncopal slip and fall. Patient was using a walker the time and felt both of her legs becoming weak and fell to the floor injuring her right hip. Patient denies hitting her head having loss of consciousness injuring her neck chest abdomen or other extremity. Patient takes no blood thinning agents. Patient's had no recent febrile illness or respiratory illness. Patient denies any chest pain or shortness of breath at this time. History PFSH Past Medical History Narrative Medical Dyslipidemia, mitral valve prolapse, breast cancer with lumpectomy chemotherapy radiation therapy hiatal hernia neuropathy left wrist surgery; no tobacco use no alcohol use Arthritis: Yes Asthma: No Heart Rhythm Problems: Yes (PT SAID SHE USED TO HAVE PROLAPSED MITRAL VALVE THAT "WENT AWAY") Cancer: Yes (RIGHT BREAST LUMPECTOMY 2000 w/ chemo, AXILLARY NODES) Cardiovascular Problems: Yes (MVP) High Cholesterol: Yes Chest Pain: No Congestive Heart Failure: No COPD: No Cerebrovascular Accident: No Diabetes: No Diminished Hearing: No GERD: No Glaucoma: No Headaches: No Hepatitis: No Hiatal Hernia: Yes Hypertension: Yes Musculoskeletal: Yes Neurologic: Yes (NEUROPATHY) Reproductive: No Respiratory: No Immunizations Current: Yes Migraines: No Myocardial Infarction: No Renal Failure: Yes Seizures: No Sleep Apnea: No Thyroid Disease: No Ulcer: No Tetanus Vaccination: < 5 Years Influenza Vaccination: Yes Menopausal: Yes Past Surgical History Abdominal Surgery: No Appendectomy: No Cardiac Surgery: No Cholecystectomy: No Ear Surgery: No Endocrine Surgery: No Eye Surgery: No Genitourinary Surgery: No Gynecologic Surgery: Yes Oral Surgery: No Pacemaker: No Thoracic Surgery: No Tonsillectomy: Yes Other Surgery: Yes (LEFT WRIST/ RIGHT BREAST, RIGHT LYMPHNODES/lumpectomy) Social History Alcohol Use: No (2 DAILY/ QUIT 1 MONTH AGO) Tobacco Use: No (1 PPD/ QUIT 1 MONTH AGO) Substance Use: No Allergies-Medications Allergies-Medications (Allergen,Severity, Reaction): Coded Allergies: Penicillin (Unverified Allergy, Severe, 04/07/17) pt. states reaction was so long ago she no longer remembers reaction Sulfa (Unverified Adverse Reaction, Intermediate, 04/07/17) pt. states she gets yeast infections while on sulfa drugs Reported Meds & Prescriptions Reported Meds & Active Scripts Active Thera/Beta-Carotene (Multiple Vitamin) 1 Tab Tab 1 Tab PO DAILY Reported Metoprolol Tartrate 50 Mg Tab 50 Mg PO BID Lipitor (Atorvastatin Calcium) 20 Mg Tab 20 Mg PO HS Past Family Social History Allergies: Coded Allergies: Penicillin (Unverified Allergy, Severe, 04/07/17) pt. states reaction was so long ago she no longer remembers reaction Sulfa (Unverified Adverse Reaction, Intermediate, 04/07/17) pt. states she gets yeast infections while on sulfa drugs Active Ordered Medications Current Medications Medications (Trade) Dose Ordered Sig/Marko Route Start Time Stop Time Status Last Admin (NS Flush) 2 ml BID IV FLUSH 04/08/17 09:00 Sodium Chloride 2 ml 2 ml UNSCH PRN IVF 04/08/17 01:45 Lactated Ringer's 1,000 ml @ 30 mls/hr Q24H PRN IV 04/08/17 03:45 04/11/17 03:44 (NS 500 ml Inj) 500 ml @ 30 mls/hr [id number] PRN IV 04/08/17 03:45 04/11/17 03:44 (Morphine Inj) 2 mg Q3H PRN IV PUSH 04/08/17 05:45 04/08/17 05:59 (Morphine Inj) 4 mg Q3H PRN IV PUSH 6/18/17 05:45 Reported Meds & Active Scripts Active Thera/Beta-Carotene (Multiple Vitamin) 1 Tab Tab 1 Tab PO DAILY Reported Metoprolol Tartrate 50 Mg Tab 50 Mg PO BID Lipitor (Atorvastatin Calcium) 20 Mg Tab 20 Mg PO HS Physical Exam Vital Signs Vital Signs Date Time Temp Pulse Resp B/P Pulse Ox O2 Delivery O2 Flow Rate FiO2 04/08/17 08:00 95.7 73 18 123/68 92 04/08/17 02:54 96.2 66 16 149/79 92 04/08/17 01:00 55 16 164/76 95 Room Air Physical Exam Alert awake and oriented x 3. No acute distress. Head: NC/AT Neck: No pain with any range of motion and neck. Trachea is midline. No tenderness to palpation along posterior cervical elements. Pulmonary: Normal respiratory effort. Bilateral upper extremity: No deformities Intact sensation distally in median, ulnar, and radial nerve. Intact motor in anterior interosseous, posterior interosseous, and ulnar nerve. 2+ radial artery pulses. Good cap refill. RIGHT lower extremity: No deformity, grossly Neurovascularly intact, + log roll , +EHL/FHL. + PT/DP pulses. Supple compartments. Negative Homans sign. LEFT lower extremity: No deformity, grossly Neurovascularly intact, Supple compartments. Negative Homans sign. Laboratory Laboratory Tests Test 04/07/17 04/08/17 04/08/17 23:40 01:00 01:10 White Blood Count 8.9 Red Blood Count 3.45 Hemoglobin 11.6 Hematocrit 33.8 Mean Corpuscular Volume 98.1 Mean Corpuscular Hemoglobin 33.7 Mean Corpuscular Hemoglobin 34.4 Concent Red Cell Distribution Width 13.0 Platelet Count 218 Mean Platelet Volume 8.8 Neutrophils (%) (Auto) 79.3 Lymphocytes (%) (Auto) 10.4 Monocytes (%) (Auto) 8.8 Eosinophils (%) (Auto) 1.1 Basophils (%) (Auto) 0.4 Neutrophils # (Auto) 7.1 Lymphocytes # (Auto) 0.9 Monocytes # (Auto) 0.8 Eosinophils # (Auto) 0.1 Basophils # (Auto) 0.0 CBC Comment DIFF FINAL Differential Comment Sodium Level 138 Potassium Level 4.3 Chloride Level 104 Carbon Dioxide Level 26.3 Anion Gap 8 Blood Urea Nitrogen 16 Creatinine 1.09 Estimat Glomerular Filtration 49 Rate Random Glucose 103 Calcium Level 9.3 Total Bilirubin 0.8 Aspartate Amino Transf 24 (AST/SGOT) Alanine Aminotransferase 28 (ALT/SGPT) Alkaline Phosphatase 86 Total Protein 7.0 Albumin 3.8 Prothrombin Time 11.1 Prothromb Time International 1.0 Ratio Activated Partial 27.0 Thromboplast Time Blood Type O POSITIVE Antibody Screen NEGATIVE Urine Color YELLOW Urine Turbidity CLEAR Urine pH 5.5 Urine Specific [place] 1.013 Urine Protein NEG Urine Glucose (UA) NEG Urine Ketones 10 Urine Occult Blood NEG Urine Nitrite NEG Urine Bilirubin NEG Urine Urobilinogen LESS THAN 2.0 Urine Leukocyte Esterase NEG Urine RBC 1 Urine WBC 1 Microscopic Urinalysis Comment CATH-CULT NOT IND Result Diagram: 04/07/17 2340 04/07/17 234 Imaging Last 72 hours Impressions Chest X-Ray 04/07/178 Signed Impressions: Service Date/Time: Friday, April 07, 2017 23:46 - CONCLUSION: No acute cardiopulmonary disease identified. Harjinder Youssef MD Hip and Pelvis X-Ray 04/07/175 Signed Impressions: Service Date/Time: Friday, April 07, 2017 23:34 - CONCLUSION: Right femoral neck fracture. Harjinder Youssef MD Assessment & Plan Assessment and Plan 71-year-old female status post fall while using a walker at home, denies any loss of consciousness or syncopal episode. She was brought in emergency department complaining of right hip pain and inability to bear weight. X-ray examination reveal a valgus impacted left femoral neck fracture. I recommend percutaneous screw fixation right hip. I discussed my treatment plans with the patient, as well as risks, benefits and alternatives of surgical Intervention versus nonoperative treatment. In this case, the risks of operative intervention involves bleeding, infection, risks of damage to neurovascular structures, the risk of needing further surgery, posttraumatic arthritis and the risks involved with complication from anesthesia. We will proceed with the above procedure. The patient accepts these risks; understands and agrees with my recommendations. I also discussed my proposed postoperative care and follow- up plan. All questions were answered. Plan for OR []. Nothing by mouth []. Patient consented. Thanks for the consult, thanks for allowing me to participate in this patient's medical care. Alexander Pratt Jr., MD Apr 08, 2017 10:15
--- NOTE | 2017-04-08 10:18 | PD.OP ---
cc: Alexander Pratt Jr., MD Operative Report Date of Surgery: Apr 08, 2017 Preoperative Diagnosis: Right valgus impacted femoral neck fracture Postoperative Diagnosis: Same Procedure: Right hip closed reduction and proximal screw fixation Anesthesia: Gen. Surgeon: Alexander Pratt Home Decorator(s): Staff Resident Surgeon: None Operation and Findings: Estimated blood loss: Minimal cc Implants: Synthes stainless steel cannulated screws, 7.5mm. The patient received intravenous Ancef. After the appropriate anesthesia was administered, the patient was transferred to the fracture table. The fracture was left in situ. The RIGHT hip was prepped and draped in usual sterile fashion. Using fluoroscopic guidance we made 3 small percutaneous incisions on the lateral aspect of the hip. We then incised through the deep fascia as well. We placed three threaded guidewires in a triangular configuration, starting laterally with the tips of the guidewires placed within the femoral head. We confirmed that there was no intra-articular penetration of the tips of these guidewires. The lateral aspect of the guidewires were kept proximal to the lower portion of the lesser trochanter to reduce the risk of periprosthetic fracture. We measured the appropriate depth for the screws and then drilled the cortex laterally. The 3 screws were then placed within the bone. The screws purchase into the bone was considered to be excellent. We took final fluoroscopic imaging which revealed that the fracture remained good position. The hardware was in good position as well. The wounds were thoroughly irrigated and then closed with a gurpreet. The postoperative plan is to start 50% weightbearing. Additionally, we will initiate postoperative antibiotics for 24 hours along with DVT prophylaxis consisting of early mobilization, SCDs, compression stockings, and lovenox. POSTP-OP PLAN OF ACTIVITY Antibiotics: vanc Antiocoagulation: Lovenox Weight bearing status: 50% WB PT/OT: OOB TID Dressing: Change daily, by RN starting postop day e Future procedure planned: none Dispo: expected discharge 1-2 days Alexander Pratt Jr., MD Apr 08, 2017 10:18
[2017-04-08] MEDS ORDERED: NORC5TAB PO (10:19)
[2017-04-08] MEDS ORDERED: PROMETHAZINE HCL 25 MG TAB PO PRN (10:30)
[2017-04-08] MEDS ORDERED: LACTULOSE SYRUP 20 GM/30 ML CUP PO PRN (10:30)
[2017-04-08] MEDS ORDERED: MORPHINE SULFATE 8 MG/ML INJ IV PUSH PRN (10:30)
[2017-04-08] MEDS ORDERED: Post-op Orders (for Pharmacy) MISC XX ONE (10:30)
[2017-04-08] MEDS ORDERED: ZOLPIDEM TARTRATE 5 MG TAB PO PRN (10:30)
[2017-04-08] MEDS ORDERED: SODIUM CHLORIDE 0.9% FLUSH 10 ML FLUSH IV FLUSH PRN (10:30)
[2017-04-08] MEDS ORDERED: BISACODYL 10 MG SUPP RECTAL PRN (10:30)
[2017-04-08] MEDS ORDERED: ONDANSETRON HCL 4 MG/2 ML VIAL IVP PRN (10:30)
[2017-04-08] MEDS ORDERED: ACETAMINOPHEN/HYDROcodone 325 MG/5 MG TAB PO PRN (10:30)
--- NOTE | 2017-04-08 10:39 | RADRPT ---
EXAM DATE/TIME: 04/08/2017 10:00 [facility] COMPARISON: No previous studies available for comparison. INDICATIONS : Right hip fracture. MEDICAL HISTORY : None. SURGICAL HISTORY : None. ENCOUNTER: Initial ACUITY: 1 day PAIN SCORE: Non-responsive. LOCATION: Right hip. FINDINGS: A two view examination of the right hip was performed. There is lag screw fixation of the right femur with near-anatomic alignment. No dislocation. CONCLUSION: Lag screw fixation proximal right femur. No complications identified. Arcenio Garza MD on April 08, 2017 at 10:36 Board Certified Radiologist. This report was verified electronically.
[2017-04-08] MEDS: KETOROLAC TROMETHAMINE 30 MG/ML (IVP) VIAL IVP SCH ×3 (10:40→22:42)
[2017-04-08] MEDS ORDERED: DO NOT ADM ANY ANTICOAGULANT DRUGS PRN (10:45)
[2017-04-08] MEDS ORDERED: PROPOFOL 200 MG/20 ML AMP IV ONE (12:00)
--- NOTE | 2017-04-08 12:12 | EKG ---
Date Performed: 04/07/2017 Time Performed: 23:57:26 PTAGE: 71 years EKG: Sinus rhythm NORMAL ECG PREVIOUS TRACING : 03/10/2017 00.48 Compared to prior tracing no significant change DOCTOR: Baldemar Dickey Interpretating Date/Time 04/08/2017 12:11:01
--- NOTE | 2017-04-08 13:53 | HHI.HP ---
HPI Service [facility] Hospitalists Primary Care Physician Anthony Cheung MD Admission Diagnosis right hip fracture Chief Complaint: right hip pain Travel History International Travel<30 Days: No Contact w/Intl Traveler <30 Da: No Traveled to Known Affected Are: No History of Present Illness Pt is 71 yo with hx breast ca and htn She was in her home when ambulating with a walker. She became wobbly and then collapsed onto her right hip. No LOC. No cp or sob. Now taken for closed right fem. neck fx reduction and screw fixation. Review of Systems Other right hip pain Past Family Social History Past Medical History right breast ca. lumpectomy with chemoradiation wrist surgery. fracture. hyperlipidemia htn OA Reported Medications Metoprolol Tartrate 50 Mg Tab 50 Mg PO BID Lipitor (Atorvastatin Calcium) 20 Mg Tab 20 Mg PO HS Allergies: Coded Allergies: Penicillin (Unverified Allergy, Severe, 04/07/17) pt. states reaction was so long ago she no longer remembers reaction Sulfa (Unverified Adverse Reaction, Intermediate, 04/07/17) pt. states she gets yeast infections while on sulfa drugs Family History nc Social History quit tob/etoh x 1 month smoked over 40yr 1ppd hx etoh abuse Physical Exam Vital Signs seen post op. lethargic but arousable heart reg lung cta abd s/nt ext no pitting Vital Signs Date Time Temp Pulse Resp B/P Pulse Ox O2 Delivery O2 Flow Rate FiO2 04/08/17 12:28 98 Nasal Cannula 2.00 04/08/17 11:50 95.9 64 18 151/79 100 04/08/17 11:30 97.5 57 20 161/69 100 Nasal Cannula 2 04/08/17 11:15 56 20 159/72 100 Nasal Cannula 2 04/08/17 11:00 56 20 156/72 100 Nasal Cannula 2 04/08/17 10:45 60 20 173/82 100 Nasal Cannula 2 04/08/17 10:30 63 20 157/75 100 Nasal Cannula 4 04/08/17 10:20 97.5 61 20 188/81 100 Nasal Cannula 4 04/08/17 08:00 95.7 73 18 123/68 92 04/08/17 02:54 96.2 66 16 149/79 92 04/08/17 01:00 55 16 164/76 95 Room Air Laboratory Laboratory Tests Test 04/07/17 04/08/17 04/08/17 23:40 01:00 01:10 White Blood Count 8.9 Red Blood Count 3.45 Hemoglobin 11.6 Hematocrit 33.8 Mean Corpuscular Volume 98.1 Mean Corpuscular Hemoglobin 33.7 Mean Corpuscular Hemoglobin 34.4 Concent Red Cell Distribution Width 13.0 Platelet Count 218 Mean Platelet Volume 8.8 Neutrophils (%) (Auto) 79.3 Lymphocytes (%) (Auto) 10.4 Monocytes (%) (Auto) 8.8 Eosinophils (%) (Auto) 1.1 Basophils (%) (Auto) 0.4 Neutrophils # (Auto) 7.1 Lymphocytes # (Auto) 0.9 Monocytes # (Auto) 0.8 Eosinophils # (Auto) 0.1 Basophils # (Auto) 0.0 CBC Comment DIFF FINAL Differential Comment Sodium Level 138 Potassium Level 4.3 Chloride Level 104 Carbon Dioxide Level 26.3 Anion Gap 8 Blood Urea Nitrogen 16 Creatinine 1.09 Estimat Glomerular Filtration 49 Rate Random Glucose 103 Calcium Level 9.3 Total Bilirubin 0.8 Aspartate Amino Transf 24 (AST/SGOT) Alanine Aminotransferase 28 (ALT/SGPT) Alkaline Phosphatase 86 Total Protein 7.0 Albumin 3.8 Prothrombin Time 11.1 Prothromb Time International 1.0 Ratio Activated Partial 27.0 Thromboplast Time Blood Type O POSITIVE Antibody Screen NEGATIVE Urine Color YELLOW Urine Turbidity CLEAR Urine pH 5.5 Urine Specific [place] 1.013 Urine Protein NEG Urine Glucose (UA) NEG Urine Ketones 10 Urine Occult Blood NEG Urine Nitrite NEG Urine Bilirubin NEG Urine Urobilinogen LESS THAN 2.0 Urine Leukocyte Esterase NEG Urine RBC 1 Urine WBC 1 Microscopic Urinalysis Comment CATH-CULT NOT IND Result Diagram: 04/07/17 2340 04/07/17 2340 Assessment and Plan Problem List: (1) Fracture of femoral neck, right, closed Status: Acute Plan: Pt fell while walking with her walker right fem neck fx s/p closed fem fx reduction. screw fixation 04/08 dvt prophylaxis IS pain control PT plan for snf home meds. (2) HTN (hypertension) Status: Chronic (3) Breast CA Status: Resolved Physician Certification 2 Midnight Certification Type: Admission for Inpatient Services Order for Inpatient Services 3The services are ordered in accordance with Medicare regulations or non- Medicare payer requirements, as applicable. In the case of services not specified as inpatient-only, they are appropriately provided as inpatient services in accordance with the 2-midnight benchmark. Estimated LOS (days): 3 3 days is the estimated time the patient will need to remain in the hospital, assuming treatment plan goals are met and no additional complications. Post-Hospital Plan: SNF Problem Qualifiers (1) Fracture of femoral neck, right, closed: Qualified Code: S72.001A - Closed fracture of neck of right femur, initial encounter Antonio Matthews MD Apr 08, 2017 13:53
[2017-04-08] MEDS: VANCOMYCIN INJ 1,000 MG in SODIUM CHLOR 0.9% 250 ML INJ 250 ML IV SCH (20:20)
[2017-04-08] MEDS: SENNOSIDES 8.6 MG TAB PO PRN (20:20)
[2017-04-08] MEDS: ACETAMINOPHEN/HYDROcodone 325 MG/5 MG TAB PO PRN (20:20)
[2017-04-08] MEDS: DOCUSATE SODIUM 50 MG/SENNA 8.6 MG TAB PO SCH (20:21)
[2017-04-08] MEDS: ENOXAPARIN SODIUM 30 MG/0.3 ML SYRINGE SQ SCH (22:42)
[2017-04-09] VITALS (7 sets, daily range): BP systolic 92–122; BP diastolic 56–68; PULSE 58–70; RESP 13–18; TEMP 96–97.9; O2SAT 95–100
[2017-04-09] MEDS: KETOROLAC TROMETHAMINE 30 MG/ML (IVP) VIAL IVP SCH ×4 (04:30→22:27)
[2017-04-09] MEDS: SODIUM CHLORIDE 0.9% FLUSH 10 ML FLUSH IV FLUSH SCH ×3 (09:00→22:26)
[2017-04-09] MEDS: VANCOMYCIN INJ 1,000 MG in SODIUM CHLOR 0.9% 250 ML INJ 250 ML IV SCH (09:36)
[2017-04-09] MEDS: MAGNESIUM HYDROXIDE SUSP 30 ML CUP PO PRN (09:36)
[2017-04-09] MEDS: DOCUSATE SODIUM 50 MG/SENNA 8.6 MG TAB PO SCH ×2 (09:37→22:26)
[2017-04-09] MEDS: ENOXAPARIN SODIUM 30 MG/0.3 ML SYRINGE SQ SCH ×2 (09:39→22:26)
[2017-04-09] MEDS: ACETAMINOPHEN/HYDROcodone 325 MG/5 MG TAB PO PRN ×2 (09:47→16:13)
--- NOTE | 2017-04-09 15:02 | HHI.PR ---
Subjective Remarks Pt without any specific complaints Sister is concerned about her tobacco use prior to admission Objective Vitals Vital Signs Date Time Temp Pulse Resp B/P Pulse Ox O2 Delivery O2 Flow Rate FiO2 04/09/17 12:00 96.6 58 16 92/56 100 04/09/17 07:57 95 Nasal Cannula 2.00 04/09/17 07:56 97.9 59 13 105/58 100 04/09/17 04:00 96.0 66 16 122/68 99 04/09/17 00:00 97.6 62 16 109/67 98 04/08/17 20:55 97 Nasal Cannula 2.00 04/08/17 19:30 98.1 65 16 119/67 97 04/08/17 15:16 96.9 66 17 145/69 96 04/08/17 04/08/17 04/09/17 15:00 23:00 07:00 Intake Total 150 ml 240 ml Output Total 10 ml 325 ml Balance 140 ml -85 ml Intake Oral 240 ml Other 150 ml Output Urine Total 325 ml Estimated Blood Loss 10 ml # Bowel Movements 0 Result Diagram: 04/07/17 2340 04/07/17 2340 Other Results Laboratory Tests Test 04/07/17 04/08/17 04/08/17 23:40 01:00 01:10 White Blood Count 8.9 TH/MM3 Red Blood Count 3.45 MIL/MM3 Hemoglobin 11.6 GM/DL Hematocrit 33.8 % Mean Corpuscular Volume 98.1 FL Mean Corpuscular Hemoglobin 33.7 PG Mean Corpuscular Hemoglobin 34.4 % Concent Red Cell Distribution Width 13.0 % Platelet Count 218 TH/MM3 Mean Platelet Volume 8.8 FL Neutrophils (%) (Auto) 79.3 % Lymphocytes (%) (Auto) 10.4 % Monocytes (%) (Auto) 8.8 % Eosinophils (%) (Auto) 1.1 % Basophils (%) (Auto) 0.4 % Neutrophils # (Auto) 7.1 TH/MM3 Lymphocytes # (Auto) 0.9 TH/MM3 Monocytes # (Auto) 0.8 TH/MM3 Eosinophils # (Auto) 0.1 TH/MM3 Basophils # (Auto) 0.0 TH/MM3 CBC Comment DIFF FINAL Differential Comment Sodium Level 138 MEQ/L Potassium Level 4.3 MEQ/L Chloride Level 104 MEQ/L Carbon Dioxide Level 26.3 MEQ/L Anion Gap 8 MEQ/L Blood Urea Nitrogen 16 MG/DL Creatinine 1.09 MG/DL Estimat Glomerular Filtration 49 ML/MIN Rate Random Glucose 103 MG/DL Calcium Level 9.3 MG/DL Total Bilirubin 0.8 MG/DL Aspartate Amino Transf 24 U/L (AST/SGOT) Alanine Aminotransferase 28 U/L (ALT/SGPT) Alkaline Phosphatase 86 U/L Total Protein 7.0 GM/DL Albumin 3.8 GM/DL Prothrombin Time 11.1 SEC Prothromb Time International 1.0 RATIO Ratio Activated Partial 27.0 SEC Thromboplast Time Blood Type O POSITIVE Antibody Screen NEGATIVE Urine Color YELLOW Urine Turbidity CLEAR Urine pH 5.5 Urine Specific [place] 1.013 Urine Protein NEG mg/dL Urine Glucose (UA) NEG mg/dL Urine Ketones 10 mg/dL Urine Occult Blood NEG Urine Nitrite NEG Urine Bilirubin NEG Urine Urobilinogen LESS THAN 2.0 MG/DL Urine Leukocyte Esterase NEG Urine RBC 1 /hpf Urine WBC 1 /hpf Microscopic Urinalysis Comment CATH-CULT NOT IND Imaging Last Impressions Hip X-Ray 04/08/17 0000 Signed Impressions: Service Date/Time: Saturday, April 08, 2017 10:00 - CONCLUSION: Lag screw fixation proximal right femur. No complications identified. Arcenio Garza MD Chest X-Ray 04/07/17 2318 Signed Impressions: Service Date/Time: Friday, April 07, 2017 23:46 - CONCLUSION: No acute cardiopulmonary disease identified. Harjinder Youssef MD Hip and Pelvis X-Ray 04/07/17 2249 Signed Impressions: Service Date/Time: Friday, April 07, 2017 23:34 - CONCLUSION: Right femoral neck fracture. Harjinder Youssef MD Objective Remarks General: NAD, AAOx3 Chest: CTA Cardiac: Regular Abd: +BS, soft ND/NT Ext: No edema A/P Problem List: (1) Fracture of femoral neck, right, closed Status: Acute Plan: - Pt is a 71 y/o female HTN, hyperlipidemia and hx of breast cancer. - Pt was admitted after she fell while walking with her walker - She was found to have sustained a right fem neck fx - Pt underwent closed fem fx reduction with proximal screw fixation on 04/08 - IS - Constipation precautions - Pain control PRN - DVT prophylaxis - Pt will need SNF placement at the end of this hospitalization - Nicotine patch (2) HTN (hypertension) Status: Chronic Plan: - Home meds are on hold due to low/normal BP - Pt normally takes Metoprolol Tartrate 50 Mg PO BID (3) Breast CA Status: Resolved Assessment and Plan Patient examined. Assessment and plan formulated with Catrachita Joy PA-C. I agree with the above. Problem Qualifiers (1) Fracture of femoral neck, right, closed: Qualified Code: S72.001A - Closed fracture of neck of right femur, initial encounter Catrachita Joy Apr 09, 2017 15:02 Abdulaziz Smith DO Apr 11, 2017 11:58
[2017-04-09] MEDS: NICOTINE 14 MG/24 HR PATCH T-DERMAL SCH (17:56)
--- NOTE | 2017-04-09 17:56 | PD.ORT.PN ---
Subjective Subjective Remarks no issues. no SOB/CP Objective Vitals Vital Signs Date Time Temp Pulse Resp B/P Pulse Ox O2 Delivery O2 Flow Rate FiO2 04/09/17 16:37 96.8 58 16 119/58 100 04/09/17 12:00 96.6 58 16 92/56 100 04/09/17 07:57 95 Nasal Cannula 2.00 04/09/17 07:56 97.9 59 13 105/58 100 04/09/17 04:00 96.0 66 16 122/68 99 04/09/17 00:00 97.6 62 16 109/67 98 04/08/17 20:55 97 Nasal Cannula 2.00 04/08/17 19:30 98.1 65 16 119/67 97 I/O 04/08/17 04/08/17 04/08/17 04/09/17 04/09/17 04/09/17 07:00 15:00 23:00 07:00 15:00 23:00 Intake Total 208 ml 150 ml 240 ml Output Total 200 ml 10 ml 325 ml Balance 8 ml 140 ml -85 ml Intake Oral 0 ml 240 ml IV Total 208 ml Other 150 ml Output Urine Total 200 ml 325 ml Estimated Blood Loss 10 ml # Bowel Movements 0 0 Result Diagram: 04/07/17 2340 04/07/17 2340 Objective Remarks Alert awake and oriented -3. No acute distress. Pulmonary: Normal respiratory effort. Right lower extremity: Neurovascularly intact, +EHL/FHL, dressing clean, dry and intact. + PT/DP pulses. Supple compartments. Negative Homans sign. Left lower extremity: neurovascularly intact Assessment & Plan Assessment and Plan POD # 1- right hip percutaneous screw fixation Doing well, expected postop pain, no complaints. Antibiotics: vancomycin [] DVT prophylaxis, Lovenox while in hospital (xeralto upon discharge if not mobilizing well) Weightbearing status: 50% WB Dressing change: Change daily, by RN starting postop day 2 Dispo: Stable and okay to discharge from orthopedic standpoint. Follow-up: 2 weeks, Dr. Pratt[facility] Alexander Morrison Jr., MD Apr 09, 2017 17:56
[2017-04-10] VITALS (9 sets, daily range): BP systolic 97–134; BP diastolic 57–74; PULSE 60–88; RESP 17–18; TEMP 96.2–98.9; O2SAT 94–97
[2017-04-10] MEDS: KETOROLAC TROMETHAMINE 30 MG/ML (IVP) VIAL IVP SCH (05:11)
[2017-04-10 07:25] LABS: AUTOMATED NEUTROPHIL # 3.8 TH/MM3 (1.8-7.7); BASOPHIL % 0.4 % (0.0-2.0); EOSINOPHIL # 0.2 TH/MM3 (0-0.4); EOSINOPHIL % 4.3 % (0.0-4.0); HEMATOCRIT 27.2 % (35.0-46.0); HEMO FLAGS DIFF FINAL; LYMPH % 12.4 % (9.0-44.0); LYMPHOCYTE # 0.7 TH/MM3 (1.0-4.8); MEAN CELL VOLUME 100.2 FL (80.0-100.0); MEAN CORPUSCULAR HEMOGLOBIN 32.9 PG (27.0-34.0); MEAN CORPUSCULAR HGB CONC 32.9 % (32.0-36.0); MONO % 13.1 % (0.0-8.0); NEUT % 69.8 % (16.0-70.0); PLATELET COUNT 141 TH/MM3 (150-450); RED BLOOD COUNT 2.72 MIL/MM3 (4.00-5.30); RED CELL DISTRIBUTION WIDTH 13.1 % (11.6-17.2); WHITE BLOOD COUNT 5.4 TH/MM3 (4.0-11.0)
[2017-04-10 07:43] LABS: BICARBONATE 23.2 MEQ/L (21.0-32.0); MAGNESIUM 2.2 MG/DL (1.5-2.5); POTASSIUM 3.8 MEQ/L (3.5-5.1)
[2017-04-10] MEDS: SODIUM CHLORIDE 0.9% FLUSH 10 ML FLUSH IV FLUSH SCH ×2 (08:50→21:34)
[2017-04-10] MEDS: REMOVE OLD NICOTINE PATCH T-DERMAL SCH (08:50)
[2017-04-10] MEDS: NICOTINE 14 MG/24 HR PATCH T-DERMAL SCH (08:50)
[2017-04-10] MEDS: DOCUSATE SODIUM 50 MG/SENNA 8.6 MG TAB PO SCH ×2 (08:50→21:33)
[2017-04-10] MEDS: ENOXAPARIN SODIUM 30 MG/0.3 ML SYRINGE SQ SCH ×2 (11:39→21:33)
--- NOTE | 2017-04-10 13:41 | HHI.PR ---
Subjective Remarks Pt up to the chair, eating lunch No specific complaints. BP low but denies any dizziness or lightheadedness Objective Vitals Vital Signs Date Time Temp Pulse Resp B/P Pulse Ox O2 Delivery O2 Flow Rate FiO2 04/10/17 12:00 98.4 76 18 105/58 97 04/10/17 09:50 96 Nasal Cannula 2.00 04/10/17 08:00 97.7 60 18 114/59 97 04/10/17 04:06 96.2 64 17 97/57 97 04/10/17 00:35 96.3 64 17 120/63 94 04/09/17 20:05 97.5 70 18 108/57 96 04/09/17 16:37 96.8 58 16 119/58 100 04/09/17 04/09/17 04/10/17 14:59 22:59 06:59 Intake Total 360 ml 120 ml Output Total 125 ml 0 ml Balance 235 ml 120 ml Intake Oral 360 ml 120 ml Output Urine Total 125 ml 0 ml # Voids 2 # Bowel Movements 0 0 Result Diagram: 04/10/17 0654 04/10/17 0654 Imaging Last Impressions Hip X-Ray 04/08/17 0000 Signed Impressions: Service Date/Time: Saturday, April 08, 2017 10:00 - CONCLUSION: Lag screw fixation proximal right femur. No complications identified. Arcenio Garza MD Chest X-Ray 04/07/17 2310 Signed Impressions: Service Date/Time: Friday, April 07, 2017 23:46 - CONCLUSION: No acute cardiopulmonary disease identified. Harjinder Youssef MD Hip and Pelvis X-Ray 04/07/17 4925 Signed Impressions: Service Date/Time: Friday, April 07, 2017 23:34 - CONCLUSION: Right femoral neck fracture. Harjinder Youssef MD Objective Remarks General: NAD, AAOx3 Chest: CTA Cardiac: Regular Abd: +BS, soft ND/NT Ext: No edema A/P Problem List: (1) Fracture of femoral neck, right, closed Status: Acute Plan: - Pt is a 71 y/o female HTN, hyperlipidemia and hx of breast cancer. - Pt was admitted after she fell while walking with her walker - She was found to have sustained a right fem neck fx - Pt underwent closed fem fx reduction with proximal screw fixation on 04/08 - IS - Constipation precautions - Pain control PRN - DVT prophylaxis - Pt will need SNF placement at the end of this hospitalization - Nicotine patch - Monitor BP - Repeat CBC in AM, Hgb decreased to 8.9 post-operatively (2) HTN (hypertension) Status: Chronic Plan: - Home meds are on hold due to low/normal BP - Pt normally takes Metoprolol Tartrate 50 Mg PO BID (3) Breast CA Status: Resolved Assessment and Plan Patient examined. Assessment and plan formulated with Catrachita Joy PA-C. I agree with the above. Problem Qualifiers (1) Fracture of femoral neck, right, closed: Qualified Code: S72.001A - Closed fracture of neck of right femur, initial encounter Catrachita Joy Apr 10, 2017 13:41 Abdulaziz Smith DO Apr 11, 2017 11:58
[2017-04-10] MEDS: ACETAMINOPHEN/HYDROcodone 325 MG/5 MG TAB PO PRN (15:36)
[2017-04-10] MEDS: MAGNESIUM HYDROXIDE SUSP 30 ML CUP PO PRN (21:29)
[2017-04-10] MEDS: SENNOSIDES 8.6 MG TAB PO PRN (21:34)
[2017-04-11] VITALS (9 sets, daily range): BP systolic 126–162; BP diastolic 69–87; PULSE 85–100; RESP 18–22; TEMP 97.8–98.8; O2SAT 95–99
[2017-04-11 06:07] LABS: AUTOMATED NEUTROPHIL # 4.3 TH/MM3 (1.8-7.7); BASOPHIL % 0.5 % (0.0-2.0); EOSINOPHIL # 0.2 TH/MM3 (0-0.4); EOSINOPHIL % 3.5 % (0.0-4.0); HEMATOCRIT 21.1 % (35.0-46.0); HEMO FLAGS DIFF FINAL; LYMPH % 12.3 % (9.0-44.0); LYMPHOCYTE # 0.8 TH/MM3 (1.0-4.8); MEAN CELL VOLUME 98.3 FL (80.0-100.0); MEAN CORPUSCULAR HEMOGLOBIN 33.6 PG (27.0-34.0); MEAN CORPUSCULAR HGB CONC 34.2 % (32.0-36.0); MONO % 13.1 % (0.0-8.0); NEUT % 70.6 % (16.0-70.0); PLATELET COUNT 159 TH/MM3 (150-450); RED BLOOD COUNT 2.15 MIL/MM3 (4.00-5.30); WHITE BLOOD COUNT 6.1 TH/MM3 (4.0-11.0)
[2017-04-11] MEDS: NICOTINE 14 MG/24 HR PATCH T-DERMAL SCH (08:34)
[2017-04-11] MEDS: REMOVE OLD NICOTINE PATCH T-DERMAL SCH (09:00)
[2017-04-11] MEDS ORDERED: SODIUM CHLOR 0.9% 250 ML INJ 250 ML IV ONE (11:45)
[2017-04-11] MEDS ORDERED: ENOX30P SQ (11:57)
[2017-04-11] MEDS ORDERED: FUROSEMIDE 20 MG/2 ML VIAL IV ONE (12:00)
--- NOTE | 2017-04-11 12:03 | HHI.DS ---
Discharge Summary Admission Date Apr 08, 2017 at 02:03 Discharge Date: Apr 11, 2017 Admitting Diagnosis right hip fracture (1) Fracture of femoral neck, right, closed Diagnosis: Principal (2) HTN (hypertension) Diagnosis: Secondary (3) Breast CA Diagnosis: Secondary Consultants Dr. Jamari Pratt Brief History Pt is 71 yo with hx breast ca and htn She was in her home when ambulating with a walker. She became wobbly and then collapsed onto her right hip. No LOC. No cp or sob. Now taken for closed right fem. neck fx reduction and screw fixation. CBC/BMP: 04/11/17 0552 04/10/17 0654 Significant Findings Laboratory Tests Test 04/10/17 04/11/17 06:54 05:52 Red Blood Count 2.72 MIL/MM3 2.15 MIL/MM3 (4.00-5.30) (4.00-5.30) Hemoglobin 8.9 GM/DL 7.2 GM/DL (11.6-15.3) (11.6-15.3) Hematocrit 27.2 % 21.1 % (35.0-46.0) (35.0-46.0) Mean Corpuscular Volume 100.2 FL (80.0-100.0) Platelet Count 141 TH/MM3 (150-450) Monocytes (%) (Auto) 13.1 % 13.1 % (0.0-8.0) (0.0-8.0) Eosinophils (%) (Auto) 4.3 % (0.0-4.0) Lymphocytes # (Auto) 0.7 TH/MM3 0.8 TH/MM3 (1.0-4.8) (1.0-4.8) Chloride Level 109 MEQ/L (98-107) Blood Urea Nitrogen 22 MG/DL (7-18) Creatinine 1.05 MG/DL (0.50-1.00) Estimat Glomerular Filtration 52 ML/MIN (>89) Rate Calcium Level 8.1 MG/DL (8.5-10.1) Neutrophils (%) (Auto) 70.6 % (16.0-70.0) PE at Discharge General: NAD, AAOx3 Chest: CTA Cardiac: Regular Abd: +BS, soft ND/NT Ext: No edema Hospital Course 1) Fracture of femoral neck, right, closed Status: Acute Plan: - Pt is a 71 y/o female HTN, hyperlipidemia and hx of breast cancer. - Pt was admitted after she fell while walking with her walker - She was found to have sustained a right fem neck fx - Pt underwent closed fem fx reduction with proximal screw fixation on 04/08 - IS - Constipation precautions - norco prn - DVT prophylaxis - nicotine patch - Pt's Hg declined to 7.2. Likely acute blood loss d/t post op anemia. - pt c/o bleeding at surgical site yesterday - transfuse 2 units PRBCs - discharge to SNF this evening following transfusion - repeat CBC at SNF 04/11 - Case d/w Dr. Pratt (04/11/17). He will reevaluate prior to discharge - see discharge orders (2) HTN (hypertension) Status: Chronic Plan: - Home meds are on hold due to low/normal BP - Pt normally takes Metoprolol Tartrate 50 Mg PO BID, will resume upon discharge with parameters (3) Breast CA Status: Resolved Assessment and Plan Pt Condition on Discharge: Stable Discharge Disposition: Discharge to SNF Discharge Instructions DIET: Follow Instructions for: Heart Healthy Diet Activities you can perform: Non Weight Bearing Follow up Referrals: Orthopedics - 2 Weeks @ [facility] with Alexander Pratt Jr., MD New Medications: Hydrocodone-Acetaminophen ([place]) 5-325 mg Tab 1 TAB PO Q4H PRN PAIN #90 Ref 0 TAB Enoxaparin Inj (Lovenox Inj) 30 Mg/0.3 Ml Syr 30 MG SQ Q12H hip surgery Days 17 INJECTION Changed Medications: Metoprolol Tartrate (Metoprolol Tartrate) 50 Mg Tab 50 MG PO BID hold for SBP below 120 HTN #60 Ref 0 TAB (Medication details modified) Continued Medications: Atorvastatin (Lipitor) 20 Mg Tab 20 MG PO HS Cholesterol Management #30 Ref 0 TAB Multiple Vitamin (Thera/Beta-Carotene) 1 Tab Tab 1 TAB PO DAILY etoh use #31 TAB Abdulaziz Smith DO Apr 11, 2017 12:03
[2017-04-11] MEDS ORDERED: METO50TA PO (12:04)
--- NOTE | 2017-04-11 12:04 | HHI.DCPOC ---
Discharge Care Plan Diagnosis: (1) Fracture of femoral neck, right, closed (2) Breast CA (3) HTN (hypertension) (4) Falls Goals to Promote Your Health * To prevent worsening of your condition and complications * To maintain your health at the optimal level Directions to Meet Your Goals Take your medications as prescribed Follow your dietary instruction Follow activity as directed Keep your appointments as scheduled Take your immunizations and boosters as scheduled If your symptoms worsen call your PCP, if no PCP go to Urgent Care Center or Emergency Room Smoking is Dangerous to Your Health. Avoid second hand smoke Call the 24-hour hour crisis hotline for domestic abuse at Abdulaziz Smith DO Apr 11, 2017 12:04
[2017-04-11] MEDS: ACETAMINOPHEN/HYDROcodone 325 MG/5 MG TAB PO PRN ×2 (17:29→21:43)
--- NOTE | 2017-04-11 18:56 | PD.ORT.PN ---
Subjective Subjective Remarks postop anemia. increased bloody drainage overnight. no SOB/CP Objective Vitals Vital Signs Date Time Temp Pulse Resp B/P Pulse Ox O2 Delivery O2 Flow Rate FiO2 04/11/17 18:47 98.0 88 22 128/82 98 04/11/17 17:50 98.6 92 18 152/87 98 04/11/17 15:40 98.7 100 18 150/80 04/11/17 12:46 97 04/11/17 07:47 98.8 95 18 126/69 99 04/10/17 23:50 97.7 88 18 120/67 95 04/10/17 19:35 98.9 87 18 134/67 94 I/O 04/10/17 04/10/17 04/10/17 04/11/17 04/11/17 04/11/17 07:00 15:00 23:00 07:00 15:00 23:00 Intake Total 120 ml 480 ml 480 ml 240 ml 480 ml Output Total 0 ml 350 ml Balance 120 ml 130 ml 480 ml 240 ml 480 ml Intake Oral 120 ml 480 ml 480 ml 240 ml 480 ml Output Urine Total 0 ml 350 ml # Voids 1 3 1 2 # Bowel Movements 0 0 0 3 1 Result Diagram: 04/11/17 0552 04/10/17 0654 Objective Remarks Alert awake and oriented -3. No acute distress. Right lower extremity: Neurovascularly intact, dressing clean, dry and intact. Assessment & Plan Assessment and Plan POD # 3- right hip percutaneous screw fixation Doing well, expected postop pain, no complaints. postop anemia- f/u PRBC txf DVT prophylaxis, Lovenox Weightbearing status: 50% WB Dressing change: Change daily, by RN starting postop day 2 Dispo: Stable and okay to discharge from orthopedic standpoint. Follow-up: 2 weeks, Dr. Pratt, [facility] Alexander Morrison Jr., MD Apr 11, 2017 18:56
[2017-04-11] MEDS: DOCUSATE SODIUM 50 MG/SENNA 8.6 MG TAB PO SCH (20:39)
[2017-04-11] MEDS: SODIUM CHLORIDE 0.9% FLUSH 10 ML FLUSH IV FLUSH SCH (20:39)
[2017-04-11] MEDS: ENOXAPARIN SODIUM 30 MG/0.3 ML SYRINGE SQ SCH (21:42)
[2017-04-12 03:44] VITALS: BP 163/80; PULSE 84; RESP 18; TEMP 98.3; O2SAT 96
[2017-04-12 06:27] LABS: HEMATOCRIT 31.6 % (35.0-46.0); MEAN CELL VOLUME 89.8 FL (80.0-100.0); MEAN CORPUSCULAR HEMOGLOBIN 31.1 PG (27.0-34.0); MEAN CORPUSCULAR HGB CONC 34.7 % (32.0-36.0); PLATELET COUNT 146 TH/MM3 (150-450); RED BLOOD COUNT 3.52 MIL/MM3 (4.00-5.30); RED CELL DISTRIBUTION WIDTH 16.9 % (11.6-17.2); REVIEW FLAG FINAL; WHITE BLOOD COUNT 6.5 TH/MM3 (4.0-11.0)
[2017-04-12 08:00] VITALS: BP 180/87; PULSE 96; RESP 18; TEMP 98.5; O2SAT 95
[2017-04-12] MEDS: REMOVE OLD NICOTINE PATCH T-DERMAL SCH (09:00)
[2017-04-12] MEDS: DOCUSATE SODIUM 50 MG/SENNA 8.6 MG TAB PO SCH (09:00)
[2017-04-12] MEDS: NICOTINE 14 MG/24 HR PATCH T-DERMAL SCH (09:00)
[2017-04-12] MEDS: ENOXAPARIN SODIUM 30 MG/0.3 ML SYRINGE SQ SCH (09:57)
[2017-04-12] MEDS: SODIUM CHLORIDE 0.9% FLUSH 10 ML FLUSH IV FLUSH SCH (10:00)
[2017-04-12 13:25] VITALS: O2SAT 97
== END 2017-04-12 15:51 | DRG 482 ==
LOC: NEPC 22:36 → NEDA 04-08 02:03 → N06B 04-08 03:00 → N06A 04-08 14:30
PROVIDERS: ADMIT Hospitalist; ATTEND Hospitalist
PROC: 30253N1 (ICD-10-PCS; 2017-04-08)
PROC: 0QS634Z Reposition Right Upper Femur with Internal Fixation Device, Percutaneous Approach (ICD-10-PCS; principal; 2017-04-08 09:00)
DX: S72.001A Fracture of unspecified part of neck of right femur, initial encounter for closed fracture (principal); D64.9 Anemia, unspecified; I34.1 Nonrheumatic mitral (valve) prolapse; I10 Essential (primary) hypertension; W18.39XA Other fall on same level, initial encounter; Y92.009 Unspecified place in unspecified non-institutional (private) residence as the place of occurrence of the external cause; E78.5 Hyperlipidemia, unspecified; Z85.3 Personal history of malignant neoplasm of breast; E78.00 Pure hypercholesterolemia, unspecified; Z92.21 Personal history of antineoplastic chemotherapy; Z92.3 Personal history of irradiation; F17.200 Nicotine dependence, unspecified, uncomplicated
CPT/HCPCS: 36430; 51702; 71010; 73502; 76000; 80048; 80053; 81001; 83735; 85025; 85027; 85610; 85730; 86850; 86900; 86901; 86920; 93005; 94150; 96374; 96375; C1713; C1769; J1580; J1650; J1885; J1940; J2270; J2405; J3010; J3370; J7050; P9016

== ENCOUNTER 2017-07-30 07:43 | Day surgery (SDC) | payer MEDICARE ==
[~2017-07-30] VITALS: Ht 162.6 cm; Wt 52.0 kg
[~2017-07-30 07:43] MED LIST changes: +ENOX30P SQ; -IPRASOL INH; -LORA-474 PO; +NORC5TAB PO; -VITA100T2 PO
[2017-07-30] MEDS ORDERED: SODIUM CHLORID 0.9% 500 ML IV PRN (08:30)
[2017-07-30] MEDS ORDERED: INSULIN HUMAN REGULAR 1,000 UNITS/10 ML VIAL SQ PRN (08:30)
[2017-07-30] MEDS ORDERED: METOPROLOL TARTRATE 25 MG TAB PO PRN (08:30)
[2017-07-30] MEDS ORDERED: LACTATED RINGER'S 1000 ML IV PRN (08:30)
[2017-07-30] MEDS ORDERED: POVIDONE IODINE 5% (ANTISEPSIS KIT) 4 APPLICATIONS EACH NARE PRN (08:30)
[2017-07-30] MEDS ORDERED: CHLORHEXIDINE GLUCONATE 2 % 1 PACK (2 CLOTHS) TOPICAL PRN (08:30)
[2017-07-30] MEDS ORDERED: SODIUM CHLORIDE 0.9% INJ 100 ML ONE (08:41)
[2017-07-30] MEDS ORDERED: CLINDAMYCIN 900 MG/NS 100 ML IV SCH ×2 (08:45)
[2017-07-30] MEDS ORDERED: POVIDONE IODINE 7.5% SCRUB 118 ML BOTTLE TOPICAL SCH (08:45)
--- NOTE | 2017-07-30 08:53 | RADRPT ---
EXAM DATE/TIME: 07/30/2017 08:17 [facility] COMPARISON: CHEST SINGLE AP, April 07, 2017, 23:46. INDICATIONS : Pre-op right hip hardware removal. Evaluate for pneumothorax, pneumonia, or communicable diseases. MEDICAL HISTORY : Renal failure, chronic. Hypertension Carcinoma, breast. Hiatal hernia SURGICAL HISTORY : None. ENCOUNTER: Initial ACUITY: 1 day PAIN SCORE: 0/10 LOCATION: Bilateral chest FINDINGS: A single view of the chest demonstrates the lungs to be hyperaerated without evidence of mass, infilt rate or effusion. The cardiomediastinal contours are unremarkable. Osseous structures are intact. CONCLUSION: No acute disease. Justin Gutierrez MD on July 30, 2017 at 8:51 Board Certified Radiologist. This report was verified electronically.
[2017-07-30] MEDS ORDERED: ACETAMINOPHEN 1000 MG/100 ML 100 ML IV ONE (09:29)
[2017-07-30 09:33] LABS: PROTHROMBIN TIME - PATIENT 10.7 SEC (9.8-11.6)
[2017-07-30] MEDS ORDERED: FAMOTIDINE 20 MG/2 ML VIAL ONE (09:34)
[2017-07-30 09:46] LABS: BASOPHIL % 0.6 % (0.0-2.0); EOSINOPHIL # 0.1 TH/MM3 (0-0.4); EOSINOPHIL % 1.4 % (0.0-4.0); HEMATOCRIT 33.4 % (35.0-46.0); LYMPH % 16.4 % (9.0-44.0); LYMPHOCYTE # 1.2 TH/MM3 (1.0-4.8); MEAN CELL VOLUME 90.6 FL (80.0-100.0); MEAN CORPUSCULAR HEMOGLOBIN 30.1 PG (27.0-34.0); MEAN CORPUSCULAR HGB CONC 33.2 % (32.0-36.0); MONO % 10.9 % (0.0-8.0); NEUT % 70.7 % (16.0-70.0); PLATELET COUNT 241 TH/MM3 (150-450); RED BLOOD COUNT 3.68 MIL/MM3 (4.00-5.30); RED CELL DISTRIBUTION WIDTH 14.2 % (11.6-17.2); WHITE BLOOD COUNT 7.1 TH/MM3 (4.0-11.0)
[2017-07-30 09:48] LABS: HEMO FLAGS AUTO DIFF
[2017-07-30] MEDS ORDERED: GENTAMICIN SULFATE 80 MG/2 ML VIAL ONE (09:56)
[2017-07-30 10:10] LABS: SCAN/DIFF AUTO DIFF CONFIRMED
[2017-07-30] MEDS ORDERED: SUGAMMADEX SODIUM 200 MG/2 ML VIAL IV PUSH ONE ×2 (10:59)
[2017-07-30] MEDS ORDERED: DO NOT ADM ANY ANTICOAGULANT DRUGS PRN (11:14)
--- NOTE | 2017-07-30 11:15 | PD.OP ---
cc: Alexander Pratt Jr., MD Operative Report Date of Surgery: Jul 30, 2017 Preoperative Diagnosis: right hip painful hardware Postoperative Diagnosis: Same Procedure: Right hip removal of hardware Anesthesia: gen Surgeon: Alexander Pratt Highway Commissioner(s): Staff Resident Surgeon: None Operation and Findings: Implants: Synthes stainless steel cannulated screws x3 removed The patient received intravenous clinda. After the appropriate anesthesia was administered, the patient was transferred to the operating table in lateral decubitus position. The hip was prepped and draped in usual sterile fashion. Using fluoroscopic guidance the screws were located, we established a small incision on the lateral aspect of the hip. We then incised through the deep fascia as well. Using 3 guide pins and screwdriver the screws were removed. We confirmed complete removal of the hardware under fluoroscopy. The wounds were thoroughly irrigated and then closed with a 0 Vicryl followed by 2-0 Vicryl and gurpreet. The postoperative plan is to start Non weightbearing. Additionally DVT prophylaxis consisting of early mobilization, SCDs, compression stockings, and aspirin qday. POSTP-OP PLAN OF ACTIVITY Antiocoagulation: aspirin Weight bearing status: NWB Dressing: Do not change Dispo: expected discharge home from PACU Alexander Pratt Jr., MD Jul 30, 2017 11:15
[2017-07-30] MEDS ORDERED: ASPI325T PO (11:16)
[2017-07-30] MEDS ORDERED: PERC5TAB12 PO (11:16)
[2017-07-30] MEDS ORDERED: ONDANSETRON HCL 4 MG/2 ML VIAL IV PUSH PRN (11:30)
[2017-07-30] MEDS ORDERED: MORPHINE SULFATE 4 MG/ML INJ IV PUSH PRN (11:30)
[2017-07-30] MEDS ORDERED: oxyCODONE/ACETAMINOPHEN 5 MG/325 MG TAB PO PRN ×2 (11:30)
[2017-07-30] MEDS ORDERED: SODIUM CHLORIDE 0.9% FLUSH 10 ML FLUSH IV FLUSH PRN (11:30)
[2017-07-30] MEDS ORDERED: *ONDANSETRON 4 MG VIAL PERIprocedural Use ONLY ONE (11:31)
[2017-07-30] MEDS ORDERED: hydrALAZINE HCL 20 MG/ML VIAL IV ONE (12:00)
[2017-07-30] MEDS ORDERED: LIDOCAINE HCL 1% PF 5 ML AMPULE OTHER ONE (12:00)
[2017-07-30] MEDS ORDERED: ROCURONIUM INJ 50 MG/5 ML VIAL IV ONE (12:00)
[2017-07-30] MEDS ORDERED: ONDANSETRON HCL 4 MG/2 ML VIAL IV PUSH ONE (12:00)
[2017-07-30] MEDS ORDERED: DEXAMETHASONE SOD PHOS 4 MG/ML VIAL IV ONE (12:00)
[2017-07-30] MEDS ORDERED: PROPOFOL 200 MG/20 ML AMP IV ONE (12:00)
[2017-07-30] MEDS ORDERED: *PROMETHAZINE 25 MG/ML VIAL PERIprocedural use ONLY ONE (12:28)
[2017-07-30] MEDS ORDERED: *MEPERIDINE 25 MG INJ VIAL PERIprocedural Use ONLY ONE (12:40)
[2017-07-30] MEDS ORDERED: KETOROLAC TROMETHAMINE 30 MG/ML (IVP) VIAL IVP ONE (12:45)
[2017-07-30 13:27] VITALS: BP 111/63; PULSE 60; RESP 16; TEMP 97.4; O2SAT 99
[2017-07-30] MEDS ORDERED: SODIUM CHLORIDE 0.9% FLUSH 10 ML FLUSH IV FLUSH SCH (21:00)
--- NOTE | 2017-08-01 11:50 | RADRPT ---
EXAM DATE/TIME: 07/30/2017 10:59 [facility] COMPARISON: No previous studies available for comparison. INDICATIONS : Right hip screw removal. OR. MEDICAL HISTORY : Renal failure, chronic. Hypertension Carcinoma, breast. Hiatal hernia. SURGICAL HISTORY : Right hip pinning. ENCOUNTER: Subsequent ACUITY: 1 day PAIN SCORE: Non-responsive. LOCATION: Right hip FINDINGS: View of the right hip was obtained. Femoral neck is intact. No fracture is seen. The soft tissues are unremarkable. CONCLUSION: No residual hardware. Nick Maloney MD FACR on August 01, 2017 at 11:49 Board Certified Radiologist. This report was verified electronically.
== END 2017-07-30 14:45 | disposition home or self-care (01) ==
LOC: HSDC 07:43 → UNDOADMIN 07:43 → HSDI 07:43 → EDSTATUS 10:00 → HSDC 14:45
PROVIDERS: ATTEND Orthopaedic Surgery
DX: Z46.89 Encounter for fitting and adjustment of other specified devices (principal); Z98.890 Other specified postprocedural states; R79.89 Other specified abnormal findings of blood chemistry
CPT/HCPCS: 01210; 20680; 71010; 73501; 76000; 85025; 85610; 86850; 86900; 86901; 97162; J0131; J0360; J1100; J1580; J1885; J2175; J2405; J2550; J3010; J7120

== ENCOUNTER 2017-10-29 05:38 | Inpatient (IN) | payer MEDICARE ==
[~2017-10-29] VITALS: Ht 162.6 cm; Wt 46.0 kg
[~2017-10-29 05:38] MED LIST changes: -ENOX30P SQ; +PERC5TAB12 PO
[2017-10-29] MEDS ORDERED: CHLORHEXIDINE GLUCONATE 2 % 1 PACK (2 CLOTHS) TOPICAL PRN (06:30)
[2017-10-29] MEDS ORDERED: VANCOMYCIN 1000 MG/NS 250 ML (for <70 kg) IV SCH ×2 (06:30)
[2017-10-29] MEDS ORDERED: METOPROLOL TARTRATE 25 MG TAB PO PRN (06:30)
[2017-10-29] MEDS ORDERED: SODIUM CHLORID 0.9% 500 ML IV PRN (06:30)
[2017-10-29] MEDS ORDERED: LACTATED RINGER'S 1000 ML IV PRN (06:30)
[2017-10-29] MEDS ORDERED: CHLORHEXIDINE GLUCONATE 4% SOLN 120 ML BTL TOPICAL SCH (06:30)
[2017-10-29] MEDS ORDERED: POVIDONE IODINE 5% (ANTISEPSIS KIT) 4 APPLICATIONS EACH NARE PRN (06:30)
[2017-10-29] MEDS ORDERED: TRAM50TA PO (06:57)
[2017-10-29] MEDS ORDERED: MEGE40TA PO (06:57)
[2017-10-29] MEDS ORDERED: GENTAMICIN SULFATE 80 MG/2 ML VIAL ONE (07:21)
[2017-10-29] MEDS ORDERED: TRANEXAMIC ACID 1 GM PRIOR TO PROCEDURE IV SCH ×2 (08:00)
[2017-10-29] MEDS ORDERED: EXPAREL PERI-ARTICULAR INJECTION (TOTAL VOL. 60 ML) P-ARTICULR SCH ×2 (08:00)
[2017-10-29] MEDS ORDERED: XARE10TA PO (08:11)
[2017-10-29] MEDS ORDERED: COLA100C5 PO (08:11)
[2017-10-29] MEDS ORDERED: PERC5TAB12 PO (08:11)
[2017-10-29] MEDS ORDERED: TRANEXAMIC ACID 1 GM POST-OP IV SCH ×2 (11:00)
[2017-10-29] MEDS ORDERED: SENNOSIDES 8.6 MG TAB PO PRN (11:15)
[2017-10-29] MEDS ORDERED: ONDANSETRON HCL 4 MG/2 ML VIAL IVP PRN (11:15)
[2017-10-29] MEDS ORDERED: BISACODYL 10 MG SUPP RECTAL PRN (11:15)
[2017-10-29] MEDS ORDERED: PROMETHAZINE HCL 25 MG TAB PO PRN (11:15)
[2017-10-29] MEDS ORDERED: TRANEXAMIC ACID INJ 1,000 MG in SODIUM CHLORIDE 0.9% INJ 100 ML IV SCH (11:15)
[2017-10-29] MEDS ORDERED: LACTULOSE SYRUP 20 GM/30 ML CUP PO PRN (11:15)
[2017-10-29] MEDS ORDERED: SODIUM CHLORIDE 0.9% FLUSH 10 ML FLUSH IV FLUSH PRN (11:15)
--- NOTE | 2017-10-29 11:22 | PD.OP ---
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 Surgeon: Alexander Pratt Smalltalk Developer(s): Hospital staff Resident Surgeon: None Operation and Findings: DRAINS: None DETAILS OF PROCEDURE: This patient is status post right femoral neck percutaneous screw fixation for a valgus impacted femoral neck fracture. She subsequently had to have the screws removed because of persistent trochanteric bursitis and protrusion of the screws. She initially did well but later on developed collapse of the fracture from avascular necrosis. The patient had radiographic evidence to confirm the diagnosis. After a thorough discussion of the treatment options, we elected to proceed with surgery and informed consent was obtained. Operative site was marked. I discussed both posterior approach and anterior approach. The patient decided on anterior approach. Patient was brought to OR and placed on OR table. IV sedation and general anesthesia was administered by anesthesiologist. Patient positioned on a Anahi table and was given IV antibiotics. Time-out procedure was performed. The RIGHT hip and thigh were prepped with alcohol followed by Hibiclens. The thigh was draped in the usual sterile fashion. Clean Air Suite was used for this procedure. The procedure began with a 5-inch incision over the anterolateral thigh. Subcutaneous tissue was dissected with Bovie. The fascia over the tensa fasciae latae was incised. Care was taken to avoid injury to the lateral femoral cutaneous nerve. The tensor muscle was retracted laterally. Sartorius was retracted medially. Retractors were now placed. The reflected head of the rectus is now elevated. A capsulectomy was performed over the anterior head capsule. There found a severely shortened femoral neck with significant evidence of devascularized bone all the way up to the femoral head. With soft tissue protected the femoral head was now removed by hand. At this point attention was turned to preparation of the acetabulum. The labrum was excised. The acetabulum was sequentially reamed up to size 45. A cluster 46mm cup was now placed. Fluoroscopy was used to aid in identification of appropriate version. Cup was fully impacted and found to have excellent fit. One screw was used to provide further fixation. Hole eliminator was now placed. The liner was now impacted into the cup. At this point the hip was externally rotated. A hook was placed around the proximal femur. The capsule was released off the lateral and medial femur. The hip was now extended and adducted. Retractors were placed around the proximal femur to allow for exposure. A box osteotome was used to remove the lateral cortex of the femoral neck. The quality of the bone of the proximal femur was very poor and soft. Carefully, A broach was used to help lateralize the prosthesis. Canal finder was used to create a path down the canal. Next, the canal was sequentially broached up to size 3. This was found to be an excellent fit. A standard head was placed, hip was reduced. Trial head was now was placed and the hip was found to have excellent stability with good range of motion. The leg lengths were measured under fluoroscopy and found to be equal compared to preoperatively. Trial broach was removed. The stem was opened. Stem was fully impacted into the proximal femur in appropriate version. The femoral head was placed. The hip was again reduced. Fluoroscopy confirmed excellent alignment of prosthesis. The wound was thoroughly irrigated and capsule was closed with #1 Vicryl. The fascia over the tensor fasciae muscle was closed with #1 Vicryl, subcutaneous tissue was closed with 3-0 Vicryl and the skin was closed with monocryl. Sterile dressing was applied. The patient was transferred to Recovery Room in stable condition. IMPLANTS USED Setgo tritamium 46mm cup 25mm screw 132 Accolade II size 3 32+ 0 ceramic head POSTP-OP PLAN OF ACTIVITY Antibiotics: vancomycin Antiocoagulation: xeralto fo 30 days Weight bearing status: 50% WB Dressing: do no change Dispo: expected discharge 3 days. [facility] Alexander Pratt Jr., MD Oct 29, 2017 11:22
[2017-10-29] MEDS ORDERED: DO NOT ADM ANY ANTICOAGULANT DRUGS PRN (11:23)
[2017-10-29] MEDS ORDERED: MORPHINE SULFATE 4 MG/ML INJ ONE (11:31)
[2017-10-29] MEDS ORDERED: LABETALOL HCL 100 MG/20 ML VIAL IV ONE (12:00)
[2017-10-29] MEDS ORDERED: LIDOCAINE HCL 1% PF 5 ML SYRINGE OTHER ONE (12:00)
[2017-10-29] MEDS ORDERED: ONDANSETRON HCL 4 MG/2 ML VIAL IV ONE (12:00)
[2017-10-29] MEDS ORDERED: ROCURONIUM INJ 50 MG/5 ML SYRINGE IV PUSH ONE (12:00)
[2017-10-29] MEDS ORDERED: DEXAMETHASONE SOD PHOS 4 MG/ML VIAL IV ONE (12:00)
[2017-10-29] MEDS ORDERED: ePHEDrine/NS 25 MG/5 ML SYRINGE IV ONE (12:00)
[2017-10-29] MEDS ORDERED: PROPOFOL 200 MG/20 ML AMP IV ONE (12:00)
[2017-10-29] MEDS ORDERED: Post-op Orders (for Pharmacy) XX ONE (12:15)
--- NOTE | 2017-10-29 12:34 | RADRPT ---
EXAM DATE/TIME: 10/29/2017 11:40 [facility] COMPARISON: HIP RIGHT (AP&LAT 2/3VWS) W AP PELVIS, April 07, 2017, 23:34. INDICATIONS : Post op total right hip. MEDICAL HISTORY : None. SURGICAL HISTORY : None. ENCOUNTER: Initial ACUITY: 1 day PAIN SCORE: Non-responsive. LOCATION: Right Hip FINDINGS: The patient is status post a total hip arthroplasty with a bipolar prosthesis. Prosthesis is well-sea penelope. Alignment is anatomic. A fracture is not appreciated. CONCLUSION: Anatomic alignment. Nick Maloney MD FACR on October 29, 2017 at 12:32 Board Certified Radiologist. This report was verified electronically.
[2017-10-29 12:35] LABS: HEMATOCRIT 29.8 % (35.0-46.0)
[2017-10-29] MEDS: MEGESTROL ACETATE 40 MG TAB PO SCH ×3 (13:00→20:42)
--- NOTE | 2017-10-29 14:43 | PD.CONS ---
HPI Service [facility] Hospitalists Consult Requested By Primary Care Physician Anthony Cheung MD Diagnoses: History of Present Illness Pt is 71 yo with hx breast ca and htn She fell while ambulating in her home last year despite using a walker.She became wobbly and then collapsed onto her right hip. At that time was taken for closed right fem. neck fx reduction and screw fixation. Now presents for right NAHOMY due to AVN. seen in pacu where she was nauseated and vomited. sbp in 90s currently. Review of Systems Other right hip pain n/v Past Family Social History Past Medical History right breast ca. lumpectomy with chemoradiation wrist surgery. fracture. right femur fx. 2017 hyperlipidemia htn OA Reported Medications Colace (Docusate Sodium) 100 Mg Capsule 1 Tab PO BID Metoprolol Tartrate 50 Mg Tab 50 Mg PO BID hold for SBP below 120 Megestrol (Megestrol Acetate) 40 Mg Tab 40 Mg PO QID Lipitor (Atorvastatin Calcium) 20 Mg Tab 20 Mg PO HS Allergies: Coded Allergies: penicillin G (Verified Allergy, Severe, 10/29/17) pt. states reaction was so long ago she no longer remembers reaction Sulfa (Sulfonamide Antibiotics) (Verified Adverse Reaction, Intermediate, 10/29/17) pt. states she gets yeast infections while on sulfa drugs Family History nc Social History quit tob/etoh last yr smoked over 40yr 1ppd hx etoh abuse Physical Exam Vital Signs heart reg lung cta abd s/nt ext no edema Vital Signs Date Time Temp Pulse Resp B/P (MAP) Pulse Ox O2 Delivery O2 Flow Rate FiO2 10/29/17 14:00 70 16 95/60 (72) 100 Nasal Cannula 2 10/29/17 13:00 70 16 112/56 (74) 100 Nasal Cannula 2 10/29/17 12:30 80 16 131/70 (90) 100 Nasal Cannula 2 10/29/17 12:15 88 16 163/71 (101) 99 Nasal Cannula 2 10/29/17 12:00 90 16 166/79 (108) 99 Nasal Cannula 2 10/29/17 11:45 92 16 163/79 (107) 99 Nasal Cannula 2 10/29/17 11:30 80 16 147/65 (92) 98 Nasal Cannula 2 10/29/17 11:23 97.5 82 16 168/83 (111) 100 Nasal Cannula 2 10/29/17 07:06 97.9 67 18 160/72 (101) 100 Laboratory Laboratory Tests Test 10/29/17 11:35 Hemoglobin 10.0 Hematocrit 29.8 Result Diagram: 10/29/17 1135 Assessment and Plan Problem List: (1) Avascular necrosis of hip ICD Codes: M87.059 - Idiopathic aseptic necrosis of unspecified femur Status: Acute Plan: 1. s/p fall with right femoral neck fx. closed reduction/screw 04/07 now with traumatic AVN of the right hip. today s/p right NAHOMY post op n/v and mild hypotension. plan ivf antiemetics hold bp meds as needed pain meds dvt prophylaxis PT. (2) Fracture of femoral neck, right, closed ICD Codes: S72.001A - Fracture of unspecified part of neck of right femur, initial encounter for closed fracture Status: Resolved (3) Breast CA ICD Codes: C50.919 - Malignant neoplasm of unspecified site of unspecified female breast Status: Resolved (4) HTN (hypertension) ICD Codes: I10 - Essential (primary) hypertension Status: Chronic Antonio Matthews MD Oct 29, 2017 14:43
[2017-10-29] MEDS: SODIUM CHLOR 0.9% 1000 ML INJ 1,000 ML IV SCH ×2 (15:15→20:43)
--- NOTE | 2017-10-29 15:47 | RADRPT ---
EXAM DATE/TIME: 10/29/2017 08:53 [facility] COMPARISON: No previous studies available for comparison. INDICATIONS : Right anterior hip replacement. MEDICAL HISTORY : Hypertension. Carcinoma, breast. Arthritis. Smoker. SURGICAL HISTORY : Tonsillectomy. Right side lumpectomy. ENCOUNTER: Initial ACUITY: 1 day PAIN SCORE: Non-responsive. LOCATION: Right anterior hip. FINDINGS: Postoperative right total hip replacement. No complications identified. CONCLUSION: 1. Postoperative right total hip replacement. Arcenio Garza MD on October 29, 2017 at 15:44 Board Certified Radiologist. This report was verified electronically.
[2017-10-29 16:00] VITALS: BP 111/63; PULSE 91; RESP 17; TEMP 95.6; O2SAT 100
[2017-10-29] MEDS: VANCOMYCIN INJ 1,000 MG in SODIUM CHLOR 0.9% 250 ML INJ 250 ML IV SCH (18:42)
[2017-10-29] MEDS: oxyCODONE/ACETAMINOPHEN 5 MG/325 MG TAB PO PRN (18:48)
[2017-10-29 20:30] VITALS: BP 100/57; PULSE 92; RESP 18; TEMP 97; O2SAT 100
[2017-10-29] MEDS: ATORVASTATIN 20 MG TAB PO SCH (20:42)
[2017-10-29] MEDS: MAGNESIUM HYDROXIDE SUSP 30 ML CUP PO PRN (20:42)
[2017-10-29] MEDS: DOCUSATE SODIUM 50 MG/SENNA 8.6 MG TAB PO SCH (20:42)
[2017-10-29] MEDS: SODIUM CHLORIDE 0.9% FLUSH 10 ML FLUSH IV FLUSH SCH (20:43)
[2017-10-29] MEDS: ZOLPIDEM TARTRATE 5 MG TAB PO PRN (20:45)
[2017-10-29] MEDS ORDERED: METOPROLOL TARTRATE 50 MG TAB PO SCH (21:00)
[2017-10-29] MEDS: RIVAROXABAN 10 MG TAB PO SCH (23:17)
[2017-10-30] VITALS (7 sets, daily range): BP systolic 111–133; BP diastolic 56–64; PULSE 92–112; RESP 17–18; TEMP 96.4–98.6; O2SAT 96–100
[2017-10-30] MEDS: SODIUM CHLOR 0.9% 1000 ML INJ 1,000 ML IV SCH ×2 (04:30→20:23)
[2017-10-30] MEDS: oxyCODONE/ACETAMINOPHEN 5 MG/325 MG TAB PO PRN ×5 (04:37→23:03)
[2017-10-30 05:02] LABS: BACTERIA, URINE RARE /hpf; BILIRUBIN, URINE NEG (NEG); BLOOD, URINE SMALL (NEG); GLUCOSE,URINE NEG (NEG); HYALINE CAST, URINE 6 /lpf (RARE); KETONE, URINE NEG (NEG); MUCUS URINE FEW /lpf (OCC); NITRITE,URINE NEG (NEG); PH, URINE 5.5 (5.0-8.5); SQUAMOUS EPITHELIAL CELL URINE <1 /hpf (0-5); TRANSITIONAL EPI CELLS, URINE <1 /hpf; URINE COLOR YELLOW (YELLW/STRAW); URINE LEUKOCYTE ESTERASE LARGE (NEG)
[2017-10-30] MEDS: VANCOMYCIN INJ 1,000 MG in SODIUM CHLOR 0.9% 250 ML INJ 250 ML IV SCH (06:06)
--- NOTE | 2017-10-30 06:46 | PD.ORT.PN ---
Subjective Subjective Remarks pain controlled. resting. no issues. Objective Vitals Vital Signs Date Time Temp Pulse Resp B/P (MAP) Pulse Ox O2 Delivery O2 Flow Rate FiO2 10/30/17 05:20 97.6 108 17 117/60 (79) 99 10/30/17 01:30 98.6 105 18 119/59 (79) 97 10/29/17 20:30 97.0 92 18 100/57 (71) 100 10/29/17 16:00 95.6 91 17 111/63 (79) 100 10/29/17 15:00 74 16 110/56 (74) 100 Nasal Cannula 2 10/29/17 14:00 70 16 95/60 (72) 100 Nasal Cannula 2 10/29/17 13:00 70 16 112/56 (74) 100 Nasal Cannula 2 10/29/17 12:30 80 16 131/70 (90) 100 Nasal Cannula 2 10/29/17 12:15 88 16 163/71 (101) 99 Nasal Cannula 2 10/29/17 12:00 90 16 166/79 (108) 99 Nasal Cannula 2 10/29/17 11:45 92 16 163/79 (107) 99 Nasal Cannula 2 10/29/17 11:30 80 16 147/65 (92) 98 Nasal Cannula 2 10/29/17 11:23 97.5 82 16 168/83 (111) 100 Nasal Cannula 2 10/29/17 07:06 97.9 67 18 160/72 (101) 100 I/O 10/29/17 10/29/17 10/29/17 10/30/17 10/30/17 10/30/17 07:00 15:00 23:00 07:00 15:00 23:00 Intake Total 1600 ml 240 ml 1100 ml Output Total 725 ml 150 ml Balance 875 ml 90 ml 1100 ml Intake Oral 240 ml IV Total 100 ml 1100 ml Other 1500 ml Output Urine Total 525 ml 150 ml Estimated Blood Loss 200 ml # Bowel Movements 0 Result Diagram: 10/29/17 1135 Objective Remarks aaox3. NAD RLE- nvi. dressing CDI. neg homans. Assessment & Plan Assessment and Plan POD 1-- right NAHOMY doing well. hb 10, asymptomatic vanc xarelto OOB TID, 50% WB SNF dc rx, 3008 in chart Alexander Pratt Jr., MD Oct 30, 2017 06:46
[2017-10-30 06:54] LABS: BICARBONATE 20.3 MEQ/L (21.0-32.0); CALCIUM 8.3 MG/DL (8.5-10.1); CREATININE 1.21 MG/DL (0.50-1.00)
[2017-10-30] MEDS: METOPROLOL TARTRATE 50 MG TAB PO SCH ×2 (09:00→20:23)
[2017-10-30] MEDS: DOCUSATE SODIUM 50 MG/SENNA 8.6 MG TAB PO SCH ×2 (09:08→20:22)
[2017-10-30] MEDS: MEGESTROL ACETATE 40 MG TAB PO SCH ×4 (09:08→20:23)
[2017-10-30] MEDS: SODIUM CHLORIDE 0.9% FLUSH 10 ML FLUSH IV FLUSH SCH ×2 (09:09→20:23)
--- NOTE | 2017-10-30 10:46 | HHI.PR ---
Subjective Remarks doing ok no complaints Objective Vitals heart reg lung cta abd s/nt ext no pitting Vital Signs Date Time Temp Pulse Resp B/P (MAP) Pulse Ox O2 Delivery O2 Flow Rate FiO2 10/30/17 08:00 96.4 102 17 114/56 (75) 97 10/30/17 05:20 97.6 108 17 117/60 (79) 99 10/30/17 01:30 98.6 105 18 119/59 (79) 97 10/29/17 20:30 97.0 92 18 100/57 (71) 100 10/29/17 16:00 95.6 91 17 111/63 (79) 100 10/29/17 15:00 74 16 110/56 (74) 100 Nasal Cannula 2 10/29/17 14:00 70 16 95/60 (72) 100 Nasal Cannula 2 10/29/17 13:00 70 16 112/56 (74) 100 Nasal Cannula 2 10/29/17 12:30 80 16 131/70 (90) 100 Nasal Cannula 2 10/29/17 12:15 88 16 163/71 (101) 99 Nasal Cannula 2 10/29/17 12:00 90 16 166/79 (108) 99 Nasal Cannula 2 10/29/17 11:45 92 16 163/79 (107) 99 Nasal Cannula 2 10/29/17 11:30 80 16 147/65 (92) 98 Nasal Cannula 2 10/29/17 11:23 97.5 82 16 168/83 (111) 100 Nasal Cannula 2 Result Diagram: 10/29/17 1135 10/30/17 0501 A/P Problem List: (1) Avascular necrosis of hip ICD Codes: M87.059 - Idiopathic aseptic necrosis of unspecified femur Status: Acute Plan: 1. s/p fall with right femoral neck fx. closed reduction/screw 04/07 now with traumatic AVN of the right hip. s/p right NAHOMY post op n/v and mild hypotension. plan ivf antiemetics hold bp meds as needed pain meds dvt prophylaxis PT. plan for snf (2) Fracture of femoral neck, right, closed ICD Codes: S72.001A - Fracture of unspecified part of neck of right femur, initial encounter for closed fracture Status: Resolved (3) Breast CA ICD Codes: C50.919 - Malignant neoplasm of unspecified site of unspecified female breast Status: Resolved (4) HTN (hypertension) ICD Codes: I10 - Essential (primary) hypertension Status: Chronic Antonio Matthews MD Oct 30, 2017 10:46
[2017-10-30] MEDS: MAGNESIUM HYDROXIDE SUSP 30 ML CUP PO PRN (20:22)
[2017-10-30] MEDS: MULTIVITAMINS/MINERALS THERAPEUTIC TAB PO SCH (20:23)
[2017-10-30] MEDS: ATORVASTATIN 20 MG TAB PO SCH (20:23)
[2017-10-30] MEDS: RIVAROXABAN 10 MG TAB PO SCH (22:59)
[2017-10-31] MEDS: ZOLPIDEM TARTRATE 5 MG TAB PO PRN (01:14)
[2017-10-31] MEDS: oxyCODONE/ACETAMINOPHEN 5 MG/325 MG TAB PO PRN ×5 (06:26→22:48)
[2017-10-31 08:00] VITALS: BP 115/60; PULSE 90; RESP 19; TEMP 97.8; O2SAT 96
[2017-10-31] MEDS: DOCUSATE SODIUM 50 MG/SENNA 8.6 MG TAB PO SCH ×2 (09:00→21:21)
[2017-10-31] MEDS: METOPROLOL TARTRATE 50 MG TAB PO SCH ×2 (10:32→21:21)
[2017-10-31] MEDS: MEGESTROL ACETATE 40 MG TAB PO SCH ×4 (10:32→21:21)
[2017-10-31] MEDS: MULTIVITAMINS/MINERALS THERAPEUTIC TAB PO SCH ×2 (10:32→21:21)
[2017-10-31] MEDS: SODIUM CHLORIDE 0.9% FLUSH 10 ML FLUSH IV FLUSH SCH ×2 (10:34→21:21)
--- NOTE | 2017-10-31 10:40 | HHI.PR ---
Subjective Remarks no complaints in chair trying to eat Objective Vitals heart reg lung cta abd s/nt ext no edema Vital Signs Date Time Temp Pulse Resp B/P (MAP) Pulse Ox O2 Delivery O2 Flow Rate FiO2 10/31/17 08:00 97.8 90 19 115/60 (78) 96 10/30/17 23:30 98.5 92 18 112/56 (74) 96 10/30/17 20:00 97.9 112 18 133/63 (86) 97 10/30/17 18:28 18 10/30/17 16:00 98.0 96 17 130/64 (86) 100 10/30/17 12:00 96.9 94 17 111/61 (78) 100 Result Diagram: 10/29/17 1135 10/30/17 0501 A/P Problem List: (1) Avascular necrosis of hip ICD Codes: M87.059 - Idiopathic aseptic necrosis of unspecified femur Status: Acute Plan: 1. s/p fall with right femoral neck fx. closed reduction/screw 04/07 now with traumatic AVN of the right hip. s/p right NAHOMY post op n/v and mild hypotension. plan ivf antiemetics hold bp meds as needed ?uti..ua taken from [facility]. d/c [facility]. await cx pain meds dvt prophylaxis PT. medically stable for dc to snf (2) Fracture of femoral neck, right, closed ICD Codes: S72.001A - Fracture of unspecified part of neck of right femur, initial encounter for closed fracture Status: Resolved (3) Breast CA ICD Codes: C50.919 - Malignant neoplasm of unspecified site of unspecified female breast Status: Resolved (4) HTN (hypertension) ICD Codes: I10 - Essential (primary) hypertension Status: Chronic Antonio Matthews MD Oct 31, 2017 10:40
[2017-10-31 12:00] VITALS: BP 101/65; PULSE 81; RESP 18; TEMP 98.7; O2SAT 99
[2017-10-31] MEDS: SODIUM CHLOR 0.9% 1000 ML INJ 1,000 ML IV SCH (14:40)
[2017-10-31 16:00] VITALS: BP 109/70; PULSE 96; RESP 19; TEMP 97.8; O2SAT 97
--- NOTE | 2017-10-31 18:28 | HHI.DS ---
Discharge Summary Admission Date Oct 29, 2017 at 05:38 Discharge Date: Nov 01, 2017 Admitting Diagnosis Right femoral head avascular necrosis posttraumatic Diagnosis: (1) Avascular necrosis of hip Diagnosis: Secondary ICD Codes: M87.059 - Idiopathic aseptic necrosis of unspecified femur Status: Acute (2) Fracture of femoral neck, right, closed Diagnosis: Principal ICD Codes: S72.001A - Fracture of unspecified part of neck of right femur, initial encounter for closed fracture Status: Resolved Procedures Right total hip otoplasty Brief History This is a 71 year old female patient CBC/BMP: 10/29/17 1135 10/30/17 0501 Significant Findings Laboratory Tests Test 10/29/17 11:35 10/30/17 04:45 10/30/17 05:01 Hemoglobin 10.0 GM/DL (11.6-15.3) Hematocrit 29.8 % (35.0-46.0) Urine Turbidity HAZY (CLEAR) Urine Occult Blood SMALL (NEG) Urine Leukocyte Esterase LARGE (NEG) Urine RBC 30 /hpf (0-3) Urine Bacteria RARE /hpf (NONE) Urine Mucus FEW /lpf (OCC) Urine Yeast (Budding) RARE (NONE) Blood Urea Nitrogen 21 MG/DL (7-18) Creatinine 1.21 MG/DL (0.50-1.00) Random Glucose 111 MG/DL (74-106) Calcium Level 8.3 MG/DL (8.5-10.1) Carbon Dioxide Level 20.3 MEQ/L (21.0-32.0) Estimat Glomerular Filtration Rate 44 ML/MIN (>89) PE at Discharge aaox3. NAD RLE- nvi. dressing CDI. neg homans. Hospital Course The patient was taken to the operating room by the undersigned for the above procedures which she tolerated well. She extubated then transferred to PACU in stable condition. The patient was subsequently transferred to the floor. The rest of his hospital stay was uneventful. She received adequate postoperative antibiotics. Her diet was advanced as tolerated and he had full return of bowel function as well as making adequate urine output. We were able to covert IV pain meds to po pain meds. The patient received adequate physical therapy during his stay in is being discharged with detailed physical therapy recommendations. The patient was seen and examined on the day of discharge and found to be in stable condition. On Exam at discharge: Operative extremity was neurovascularly intact with dressing that was clean, dry and intact. Follow-up 10-[address] Pratt @ orthopaedic clinic with a Vladimir Ashley. Pt Condition on Discharge: Good Discharge Disposition: Discharge to SNF Discharge Instructions Diet Instructions: As Tolerated, No Restrictions Activities You Can Perform: Partial Weight Bearing Activities to Avoid: Contact Sports, Lifting/Bending, Prolonged Standing, Strenuous Activity Additional Activity Instruc.: 50% WB Alexander Pratt Jr., MD Oct 31, 2017 18:28
--- NOTE | 2017-10-31 18:32 | PD.ORT.PN ---
Subjective Subjective Remarks pain controlled. Refusing to eat. Not participating with physical therapy Objective Vitals Vital Signs Date Time Temp Pulse Resp B/P (MAP) Pulse Ox O2 Delivery O2 Flow Rate FiO2 10/31/17 16:00 97.8 96 19 109/70 (83) 97 10/31/17 12:00 98.7 81 18 101/65 (77) 99 10/31/17 11:32 18 10/31/17 08:00 97.8 90 19 115/60 (78) 96 10/30/17 23:30 98.5 92 18 112/56 (74) 96 10/30/17 20:00 97.9 112 18 133/63 (86) 97 I/O 10/30/17 10/30/17 10/30/17 10/31/17 10/31/17 10/31/17 07:00 15:00 23:00 07:00 15:00 23:00 Intake Total 1340 ml 380 ml 360 ml 240 ml 500 ml Output Total 225 ml 175 ml 200 ml 250 ml 425 ml Balance 1115 ml 205 ml 160 ml -10 ml 75 ml Intake Oral 240 ml 380 ml 360 ml 240 ml 500 ml IV Total 1100 ml Output Urine Total 225 ml 175 ml 200 ml 250 ml 425 ml # Bowel Movements 0 0 0 0 1 Result Diagram: 10/29/17 1135 10/30/17 0501 Procedures Right total hip otoplasty Objective Remarks aaox3. NAD RLE- nvi. dressing CDI. neg homans. Assessment & Plan Problem List: (1) Avascular necrosis of hip ICD Codes: M87.059 - Idiopathic aseptic necrosis of unspecified femur Status: Acute (2) Fracture of femoral neck, right, closed ICD Codes: S72.001A - Fracture of unspecified part of neck of right femur, initial encounter for closed fracture Status: Resolved Assessment and Plan POD 2-- right NAHOMY Not eating very well nor participating much with physical therapy. Her sister at bedside is concerned that she does not want to get better xarelto OOB TID, 50% WB SNF dc rx, 3008 in chart dc tomorrow Alexander Pratt Jr., MD Oct 31, 2017 18:32
[2017-10-31 19:50] VITALS: BP 118/58; PULSE 78; RESP 18; TEMP 98.2; O2SAT 97
[2017-10-31] MEDS: ATORVASTATIN 20 MG TAB PO SCH (21:21)
[2017-10-31] MEDS: RIVAROXABAN 10 MG TAB PO SCH (22:48)
[2017-11-01 00:05] VITALS: BP 119/65; PULSE 77; RESP 19; TEMP 98.3; O2SAT 99
[2017-11-01] MEDS: SODIUM CHLOR 0.9% 1000 ML INJ 1,000 ML IV SCH ×2 (02:35→10:11)
[2017-11-01] MEDS: oxyCODONE/ACETAMINOPHEN 5 MG/325 MG TAB PO PRN ×3 (06:19→14:22)
[2017-11-01 08:00] VITALS: BP 120/63; PULSE 95; RESP 18; TEMP 99.4; O2SAT 96
[2017-11-01] MEDS: DOCUSATE SODIUM 50 MG/SENNA 8.6 MG TAB PO SCH (09:00)
[2017-11-01] MEDS: METOPROLOL TARTRATE 50 MG TAB PO SCH (09:00)
[2017-11-01] MEDS: MEGESTROL ACETATE 40 MG TAB PO SCH ×2 (10:09→12:48)
[2017-11-01] MEDS: SODIUM CHLORIDE 0.9% FLUSH 10 ML FLUSH IV FLUSH SCH (10:10)
[2017-11-01] MEDS: MULTIVITAMINS/MINERALS THERAPEUTIC TAB PO SCH (10:11)
[2017-11-01] MEDS ORDERED: METO25TA3 PO (10:28)
[2017-11-01 12:00] VITALS: BP 120/72; PULSE 93; RESP 18; TEMP 98.9; O2SAT 96
--- NOTE | 2017-11-01 13:47 | PD.ORT.PN ---
Subjective Subjective Remarks pain controlled. Refusing to eat. Not participating with physical therapy Objective Vitals Vital Signs Date Time Temp Pulse Resp B/P (MAP) Pulse Ox O2 Delivery O2 Flow Rate FiO2 11/01/17 08:00 99.4 95 18 120/63 (82) 96 11/01/17 00:05 98.3 77 19 119/65 (83) 99 10/31/17 19:50 98.2 78 18 118/58 (78) 97 10/31/17 16:00 97.8 96 19 109/70 (83) 97 I/O 10/31/17 10/31/17 10/31/17 11/01/17 11/01/17 11/01/17 07:00 15:00 23:00 07:00 15:00 23:00 Intake Total 240 ml 740 ml 240 ml Output Total 250 ml 425 ml Balance -10 ml 315 ml 240 ml Intake Oral 240 ml 740 ml 240 ml Output Urine Total 250 ml 425 ml # Voids 0 2 # Bowel Movements 0 1 0 Result Diagram: 10/29/17 1135 10/30/17 0501 Procedures Right total hip otoplasty Objective Remarks aaox3. NAD RLE- nvi. dressing CDI. neg homans. Assessment & Plan Problem List: (1) Avascular necrosis of hip ICD Codes: M87.059 - Idiopathic aseptic necrosis of unspecified femur Status: Acute (2) Fracture of femoral neck, right, closed ICD Codes: S72.001A - Fracture of unspecified part of neck of right femur, initial encounter for closed fracture Status: Resolved Assessment and Plan POD 3-- right NAHOMY Not eating very well nor participating much with physical therapy xarelto OOB TID, 50% WB rx, 3008 in chart dc SNF today Alexander Pratt Jr., MD Nov 01, 2017 13:47
== END 2017-11-01 14:50 | DRG 470 ==
LOC: HSDI 05:38 → N06B 15:58
PROVIDERS: ADMIT Orthopaedic Surgery; ATTEND Orthopaedic Surgery
PROC: 0SR904A Replacement of Right Hip Joint with Ceramic on Polyethylene Synthetic Substitute, Uncemented, Open Approach (ICD-10-PCS; principal; 2017-10-29 08:10)
DX: M87.251 Osteonecrosis due to previous trauma, right femur (principal); I95.9 Hypotension, unspecified; I10 Essential (primary) hypertension; E78.5 Hyperlipidemia, unspecified; Z85.3 Personal history of malignant neoplasm of breast; Z92.3 Personal history of irradiation; Z92.21 Personal history of antineoplastic chemotherapy; Z87.891 Personal history of nicotine dependence; R11.2 Nausea with vomiting, unspecified
CPT/HCPCS: 73502; 76000; 80048; 81001; 85014; 85018; 86850; 86900; 86901; 87086; 94150; C1776; C9290; J1100; J1580; J2270; J2405; J3010; J3370; J7030; J7050; J7120

== ENCOUNTER 2017-11-04 02:26 | Inpatient (IN) | payer MEDICARE ==
[2017-11-04] VITALS (20 sets, daily range): BP systolic 136–195; BP diastolic 62–97; PULSE 71–120; RESP 16–27; TEMP 98.4–99.2; O2SAT 98–100
[~2017-11-04] VITALS: Ht 162.6 cm; Wt 53.6 kg
[~2017-11-04 02:26] MED LIST changes: +COLA100C5 PO; +MEGE40TA PO; +METO25TA3 PO; -METO50TA PO; -NORC5TAB PO; +TRAM50TA PO; +XARE10TA PO
[2017-11-04] MEDS ORDERED: XARE10TA PO (02:34)
[2017-11-04] MEDS ORDERED: PANTOPRAZOLE INJ 80 MG in SODIUM CHLORIDE 0.9% INJ 100 ML IV SCH (02:44)
[2017-11-04] MEDS ORDERED: PANTOPRAZOLE INJ 80 MG in SODIUM CHLORIDE 0.9% INJ 35 ML IV ONE ×2 (02:44→06:42)
[2017-11-04] MEDS ORDERED: SODIUM CHLOR 0.9% 1000 ML INJ 1,000 ML IV SCH (02:44)
[2017-11-04] MEDS ORDERED: ONDANSETRON HCL 4 MG/2 ML VIAL IVP ONE (02:45)
[2017-11-04] MEDS ORDERED: SODIUM CHLOR 0.9% 250 ML INJ 250 ML IV ONE (02:45)
[2017-11-04] MEDS ORDERED: SODIUM CHLORIDE 0.9% FLUSH 10 ML FLUSH IVF PRN (02:45)
--- NOTE | 2017-11-04 02:54 | PD ---
HPI Chief Complaint: GI Complaint Time Seen by Provider: 02:44 Travel History International Travel<30 days: No Contact w/Intl Traveler<30days: No Traveled to known affect area: No History of Present Illness HPI 71-year-old female [facility] emergency department [facility] by [facility] transport as she was noted to have coffee-ground emesis today. Patient is on postoperative Xarelto. 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 Patient has history of previous right breast cancer with lumpectomy and chemotherapy radiation right wrist fracture right femur fracture hyperlipidemia hypertension and osteoarthritis. Patient has been doing well postoperatively until today noted to have coffee-ground emesis. Patient is not on antibiotic. Patient is not had diarrhea or black tarry stool that she is aware of. Patient presents to the emergency department with tachycardia and normotensive. Patient denies any chest pain or shortness of breath. Patient denies any abdominal pain. Patient continues complaining of nausea. PFSH Past Medical History Narrative Medical Osteoarthritis breast cancer with lumpectomy chemoradiation dyslipidemia basilar necrosis right hip replacement; no tobacco use: Nursing notes reviewed Arthritis: Yes Asthma: No Autoimmune Disease: No Anxiety: No Depression: No Heart Rhythm Problems: No Cancer: Yes (RIGHT BREAST CA, SKIN CA) Cardiovascular Problems: Yes High Cholesterol: Yes Chemotherapy: Yes Chest Pain: No Congestive Heart Failure: No COPD: No Cerebrovascular Accident: No Diabetes: No Diminished Hearing: No Endocrine: No GERD: No Glaucoma: No Genitourinary: No Headaches: No Hepatitis: No Hiatal Hernia: No Hypertension: Yes Immune Disorder: No Kidney Stones: No Musculoskeletal: Yes Neurologic: Yes Psychiatric: No Reproductive: No Respiratory: No Immunizations Current: Yes Migraines: No Myocardial Infarction: No Radiation Therapy: Yes Renal Failure: No Seizures: No Sickle Cell Disease: No Sleep Apnea: No Thyroid Disease: No Ulcer: No ?: Not Menopausal: Yes Past Surgical History Abdominal Surgery: No AICD: No Appendectomy: No Arteriovenous Shunt: No Cardiac Surgery: No Cholecystectomy: No Ear Surgery: No Endocrine Surgery: No Eye Surgery: No Genitourinary Surgery: No Gynecologic Surgery: No Insulin Pump: No Joint Replacement: No Oral Surgery: Yes (TONSILLECTOMY) Pacemaker: No Thoracic Surgery: Yes (RIGHT BREAST LUMPECTOMY, PORT PLACEMENT / REMOVAL ) Tonsillectomy: Yes Other Surgery: Yes (LEFT WRIST/ RIGHT BREAST, RIGHT LYMPHNODES/lumpectomy) Social History Alcohol Use: No (2 DAILY/ QUIT 1 MONTH AGO) Tobacco Use: No (1 PPD/ QUIT 1 MONTH AGO) Substance Use: No Allergies-Medications (Allergen,Severity, Reaction): Coded Allergies: penicillin G (Verified Allergy, Severe, 11/04/17) pt. states reaction was so long ago she no longer remembers reaction Sulfa (Sulfonamide Antibiotics) (Verified Adverse Reaction, Intermediate, 11/04/17) pt. states she gets yeast infections while on sulfa drugs Reported Meds & Prescriptions Reported Meds & Active Scripts Active Colace (Docusate Sodium) 100 Mg Capsule 1 Tab PO BID Xarelto (Rivaroxaban) 10 Mg Tab 10 Mg PO DAILY Percocet (Oxycodone-Acetaminophen) 5-325 mg Tab 1 Tab PO Q4H PRN Thera/Beta-Carotene (Multiple Vitamin) 1 Tab Tab 1 Tab PO DAILY Reported Xarelto (Rivaroxaban) 10 Mg Tab 10 Mg PO DAILY Metoprolol Tartrate 25 Mg Tab 25 Mg PO BID Tramadol (Tramadol HCl) 50 Mg Tab 50 Mg PO Q4H PRN Megestrol (Megestrol Acetate) 40 Mg Tab 40 Mg PO QID Lipitor (Atorvastatin Calcium) 20 Mg Tab 20 Mg PO HS Review of Systems Except as stated in HPI: all other systems reviewed are Neg Physical Exam Narrative GENERAL: Well-developed frail elderly female in no acute distress no respiratory distress SKIN: Warm and dry. HEAD: Normocephalic. EYES: No scleral icterus. No injection or drainage. Conjunctival pallor NECK: Supple, trachea midline. No JVD or lymphadenopathy. CARDIOVASCULAR: Increased Regular rate and rhythm without murmurs, gallops, or rubs. RESPIRATORY: Breath sounds equal bilaterally. No accessory muscle use. GASTROINTESTINAL: Abdomen soft, non-tender, nondistended. Rectal exam: MUSCULOSKELETAL: No cyanosis, or edema. Attention right hip surgical site shows well-healing postoperative scar without redness induration tenderness or fluctuance BACK: Nontender without obvious deformity. No CVA tenderness. Data Data Last Documented VS Vital Signs Date Time Temp Pulse Resp B/P (MAP) Pulse Ox O2 Delivery O2 Flow Rate FiO2 11/04/17 02:34 98.7 120 24 154/72 (99) 100 Orders Orders Complete Blood Count With Diff (11/04/17 02:44) Comprehensive Metabolic Panel (11/04/17 02:44) Lipase (11/04/17 02:44) Ammonia (11/04/17 02:44) Prothrombin Time / Inr (Pt) (11/04/17 02:44) Act Partial Throm Time (Ptt) (11/04/17 02:44) Urinalysis - C+S If Indicated (11/04/17 02:44) Type And Screen (11/04/17 02:44) Red Blood Cells (Rbc) (11/04/17 02:44) Chest, Single Ap (11/04/17 02:44) Ecg Monitoring (11/04/17 02:44) Iv Access Insert/Monitor (11/04/17 02:44) Oximetry (11/04/17 02:44) Ondansetron Inj (Zofran Inj) (11/04/17 02:45) Sodium Chlor 0.9% 1000 Ml Inj (Ns 1000 M (11/04/17 02:44) Sodium Chloride 0.9% Flush (Ns Flush) (11/04/17 02:45) Sodium Chloride 0.9... W/Pantoprazole In (11/04/17 02:44) Sodium Chloride 0.9... W/Pantoprazole In (11/04/17 02:44) Sodium Chlor 0.9% 250 Ml Inj (Ns 250 Ml (11/04/17 02:45) Hip, Uni(Ap&Lat) W Ap Pelvis (11/04/17 ) Urinary Catheter Insert/Apply (11/04/17 03:50) ^ Lab Follow Up (11/04/17 04:22) Fresh Frozen Plasma (Ffp) (11/04/17 04:22) Prothrombin Complex Conc Inj (Kcentra In (11/04/17 04:30) Fibrinogen (11/04/17 04:22) Magnesium (Mg) (11/04/17 04:22) Phosphorus (Po4) (11/04/17 04:22) Ondansetron Inj (Zofran Inj) (11/04/17 04:30) Blood Product Administration (11/04/17 04:53) Labs Laboratory Tests Test 11/04/17 02:50 White Blood Count 8.3 TH/MM3 Red Blood Count 2.30 MIL/MM3 Hemoglobin 7.2 GM/DL Hematocrit 20.7 % Mean Corpuscular Volume 89.9 FL Mean Corpuscular Hemoglobin 31.0 PG Mean Corpuscular Hemoglobin Concent 34.5 % Red Cell Distribution Width 14.4 % Platelet Count 374 TH/MM3 Mean Platelet Volume 7.0 FL Neutrophils (%) (Auto) 81.4 % Lymphocytes (%) (Auto) 6.9 % Monocytes (%) (Auto) 11.6 % Eosinophils (%) (Auto) 0.0 % Basophils (%) (Auto) 0.1 % Neutrophils # (Auto) 6.8 TH/MM3 Lymphocytes # (Auto) 0.6 TH/MM3 Monocytes # (Auto) 1.0 TH/MM3 Eosinophils # (Auto) 0.0 TH/MM3 Basophils # (Auto) 0.0 TH/MM3 CBC Comment DIFF FINAL Differential Comment Prothrombin Time 11.4 SEC Prothromb Time International Ratio 1.1 RATIO Activated Partial Thromboplast Time 28.9 SEC Blood Urea Nitrogen 15 MG/DL Creatinine 0.94 MG/DL Random Glucose 116 MG/DL Total Protein 6.1 GM/DL Albumin 2.6 GM/DL Calcium Level 7.6 MG/DL Alkaline Phosphatase 81 U/L Aspartate Amino Transf (AST/SGOT) 60 U/L Alanine Aminotransferase (ALT/SGPT) 44 U/L Total Bilirubin 0.8 MG/DL Sodium Level 137 MEQ/L Potassium Level 3.8 MEQ/L Chloride Level 105 MEQ/L Carbon Dioxide Level 20.9 MEQ/L Anion Gap 11 MEQ/L Estimat Glomerular Filtration Rate 59 ML/MIN Ammonia 24 MCMOL/L Lipase 88 U/L MDM Medical Decision Making Medical Screen Exam Complete: Yes Emergency Medical Condition: Yes Medical Record Reviewed: Yes Interpretation(s) CBC & BMP Diagram 11/04/17 02:50 Total Protein 6.1 L, Albumin 2.6 L, Calcium Level 7.6 L, Alkaline Phosphatase 81 , Aspartate Amino Transf (AST/SGOT) 60 H, Alanine Aminotransferase (ALT/SGPT) 44 , Total Bilirubin 0.8 Vital Signs Date Time Temp Pulse Resp B/P (MAP) Pulse Ox O2 Delivery O2 Flow Rate FiO2 11/04/17 02:34 98.7 120 24 154/72 (99) 100 EKG sinus tachycardia rate [address] elevation or injury pattern artifact is present at baseline Differential Diagnosis GI bleed, gastritis, Xarelto coagulopathy Narrative Course IV access obtained patient placed on licensed therapist EKG performed which shows sinus tachycardia with artifact in no acute ST elevation; type and cross for 2 units; IV fluids and Protonix administered along with Zofran 4 mg IV Rectal exam normal sphincter tone dark stool on exam glove that is Hemoccult negative Hemoglobin is 7.2 this is down from .10/29/17 with history of coffee-ground emesis concerning for upper GI bleed gastritis associated with Xarelto use patient tachycardic and pale although at this time normotensive to hypertensive Patient complaining of hip pain with right hip and hip flexion and internal rotation wound site looks well healed except at the superior aspect area of small amount of tissue breakdown no purulent drainage no induration mild subacute ecchymosis noted. Patient unknown time of last dose of Xarelto Physician Communication Physician Communication discussed with Dr Jaimes --> intensivists --discussed with Dr Ricci Diagnosis Primary Impression: Upper GI bleed Additional Impression: Anemia Admitting Information Admitting Physician Requests: Admit Laura Anthony MD Nov 04, 2017 02:54
--- NOTE | 2017-11-04 03:16 | RADRPT ---
EXAM DATE/TIME: 11/04/2017 02:52 [facility] COMPARISON: CHEST SINGLE AP, July 30, 2017, 8:17. INDICATIONS : Vomitting. MEDICAL HISTORY : Renal failure, chronic. Hypertension Carcinoma, breast. Hiatal hernia SURGICAL HISTORY : Tonsillectomy. Right side lumpectomy.Right anterior hip replacement. ENCOUNTER: Initial ACUITY: 2 weeks PAIN SCORE: 0/10 LOCATION: Bilateral chest FINDINGS: A single view of the chest demonstrates the lungs to be symmetrically aerated without evidence of mas s, infiltrate or effusion. Hyperaeration of both lung ren. The cardiomediastinal contours are unre markable. Osseous structures are intact. CONCLUSION: No acute disease. No significant change has occurred. Danny Ortega MD on November 04, 2017 at 3:14 Board Certified Radiologist. This report was verified electronically.
[2017-11-04 03:19] LABS: AUTOMATED NEUTROPHIL # 6.8 TH/MM3 (1.8-7.7); BASOPHIL % 0.1 % (0.0-2.0); HEMOGLOBIN 7.2 GM/DL (11.6-15.3); LYMPH % 6.9 % (9.0-44.0); LYMPHOCYTE # 0.6 TH/MM3 (1.0-4.8); MEAN CELL VOLUME 89.9 FL (80.0-100.0); MEAN CORPUSCULAR HGB CONC 34.5 % (32.0-36.0); MONO % 11.6 % (0.0-8.0); NEUT % 81.4 % (16.0-70.0); PLATELET COUNT 374 TH/MM3 (150-450); RED CELL DISTRIBUTION WIDTH 14.4 % (11.6-17.2); WHITE BLOOD COUNT 8.3 TH/MM3 (4.0-11.0)
[2017-11-04 03:24] LABS: HEMATOCRIT 20.7 % (35.0-46.0)
[2017-11-04 03:47] LABS: INTERNATIONAL NORMALIZED RATIO 1.1 RATIO; PROTHROMBIN TIME - PATIENT 11.4 SEC (9.8-11.6)
[2017-11-04 03:49] LABS: ALBUMIN 2.6 GM/DL (3.4-5.0); AST (GOT) 60 U/L (15-37); BICARBONATE 20.9 MEQ/L (21.0-32.0); BLOOD UREA NITROGEN 15 MG/DL (7-18); CALCIUM 7.6 MG/DL (8.5-10.1); CHLORIDE 105 MEQ/L (98-107); CREATININE 0.94 MG/DL (0.50-1.00); GLOMERULAR FILTRATION RATE 59 ML/MIN (>89); GLUCOSE,RANDOM 116 MG/DL (74-106); LIPASE 88 U/L (73-393); SODIUM (NA) 137 MEQ/L (136-145)
[2017-11-04 03:52] LABS: ALKALINE PHOSPHATASE 81 U/L (45-117); ALT (GPT) 44 U/L (10-53); TOTAL BILIRUBIN ADULT 0.8 MG/DL (0.2-1.0); TOTAL PROTEIN 6.1 GM/DL (6.4-8.2)
--- NOTE | 2017-11-04 03:59 | RADRPT ---
EXAM DATE/TIME: 11/04/2017 03:32 [facility] COMPARISON: HIP RIGHT (AP&LAT 2/3VWS) W AP PELVIS, October 29, 2017, 11:40. INDICATIONS : Right hip pain- Pt not sure how or when injury occured. MEDICAL HISTORY : Renal failure, chronic. Hypertension Carcinoma, breast. Hiatal hernia SURGICAL HISTORY : Tonsillectomy. Right hip replacement, Right side lumpectomy ENCOUNTER: Initial ACUITY: 1 day PAIN SCORE: 8/10 LOCATION: Right Hip FINDINGS: Examination of the right hip was performed with AP Pelvis. Status post placement right hip prosthesis . There is good alignment and position of the prosthesis. There have been no new or significant carbajal es compared to the prior study. The bony structures of pelvis are intact.. CONCLUSION: 1. Status post right hip prosthesis. 2. No acute fracture joint dislocation. 3. No significant change compared to prior exam. Danny Ortega MD on November 04, 2017 at 3:55 Board Certified Radiologist. This report was verified electronically.
[2017-11-04] MEDS ORDERED: ONDANSETRON HCL 4 MG/2 ML VIAL IV PUSH ONE (04:30)
[2017-11-04] MEDS ORDERED: PROTHROMBIN COMPLEX CONC INJ 2,500 UNITS in SYRINGE/BAG 1 EA IV ONE (04:30)
[2017-11-04] MEDS ORDERED: NS + KCL 20 MEQ INJ 1,000 ML IV SCH (05:36)
[2017-11-04] MEDS ORDERED: SENNOSIDES 8.6 MG TAB PO PRN (05:45)
[2017-11-04] MEDS ORDERED: LACTULOSE SYRUP 20 GM/30 ML CUP PO PRN (05:45)
[2017-11-04] MEDS ORDERED: MORPHINE SULFATE 4 MG/ML INJ IV PUSH PRN (05:45)
[2017-11-04] MEDS ORDERED: CHLORHEXIDINE GLUCONATE 2 % 1 PACK (2 CLOTHS) TOP PRN (05:45)
[2017-11-04] MEDS ORDERED: MAGNESIUM HYDROXIDE SUSP 30 ML CUP PO PRN (05:45)
[2017-11-04] MEDS ORDERED: ONDANSETRON HCL 4 MG/2 ML VIAL IV PUSH PRN ×2 (05:45→06:45)
[2017-11-04] MEDS ORDERED: oxyCODONE/ACETAMINOPHEN 5 MG/325 MG TAB PO PRN (05:45)
[2017-11-04] MEDS ORDERED: RESP: ALBUTEROL 2.5 MG/IPRATROPIUM 0.5 MG NEB (PRN) INH (05:45)
[2017-11-04] MEDS ORDERED: MISCELLANEOUS NURSING INFORMATION XX SCH (05:45)
[2017-11-04] MEDS ORDERED: BISACODYL 10 MG SUPP RECTAL PRN (05:45)
[2017-11-04] MEDS ORDERED: SODIUM CHLORIDE 0.9% FLUSH 10 ML FLUSH IV FLUSH PRN ×2 (05:45→06:45)
[2017-11-04] MEDS ORDERED: METOCLOPRAMIDE HCL 10 MG/2 ML VIAL IV PUSH PRN (05:45)
[2017-11-04 06:11] LABS: MAGNESIUM 1.7 MG/DL (1.5-2.5); PHOSPHORUS 2.2 MG/DL (2.5-4.9)
[2017-11-04] MEDS ORDERED: CALCIUM GLUCONATE INJ 1 GM in SODIUM CHLORIDE 0.9% INJ 100 ML IV ONE (06:45)
[2017-11-04] MEDS ORDERED: RESP: ALBUTEROL 2.5 MG/3 ML NEB (PRN) INH (06:45)
[2017-11-04] MEDS ORDERED: SODIUM PHOSPHATE INJ 15 MMOL in SODIUM CHLORIDE 0.9% INJ 150 ML IV ONE (06:45)
[2017-11-04] MEDS ORDERED: ACETAMINOPHEN 1000 MG/100 ML 100 ML IV PRN (06:45)
--- NOTE | 2017-11-04 06:47 | HHI.HP ---
[facility] Service Critical Care Medicine Primary Care Physician Anthony Cheung MD Admission Diagnosis upper gi bleed w/ anemia Diagnosis: (1) Vitamin B12 deficiency Diagnosis: Secondary (2) Anemia associated with acute blood loss Diagnosis: Principal (3) HTN (hypertension) Diagnosis: Principal (4) History of ETOH abuse Diagnosis: Secondary (5) History of tobacco abuse Diagnosis: Secondary (6) Elevated AST (SGOT) Diagnosis: Principal (7) Hypophosphatemia (8) Hypoalbuminemia Diagnosis: Principal (9) History of melanoma Diagnosis: Secondary (10) Hiatal hernia Diagnosis: Secondary (11) Fracture of femoral neck, right, closed Diagnosis: Secondary (12) Breast CA Diagnosis: Principal Chief Complaint: Coffee-ground emesis. Hemoglobin 7.1 Travel History International Travel<30 Days: No Contact w/Intl Traveler <30 Da: No Traveled to Known Affected Are: No History of Present Illness 71-year-old female. Her date of admission 11/04/2017 . Past medical history includes hypertension, dyslipidemia, history melanoma, history of breast cancer 1999 status post chemotherapy and port placement, vitamin B-12 deficiency, history of sternal fracture, osteoporosis osteoarthritis of hiatal hernia. Prior history of both tobaccoism EtOH use but has quit for the past month. She initially presented to [facility] from [facility] by EMS transport as she was noted to have coffee-ground emesis today. Patient is on postoperative Rivaroxaban for recent right total hip replacement due to mag avascular necrosis 10/29/2017. PSA had a right total hip replacement on 04/[address] Melchor.. P no insidious. No aspirin use. No recent steroid. Use. No black/ tarry stools, hematochezia or Bright red blood per rectum. Her chief complaint is nausea. Denies chest pain, abdominal pain, shortness of breath, emesis or diarrhea. Hemoglobin initially was at 7.1. Patient is becoming transfuse 2 units PRBCs. Patient was given pantoprazole bolus 80 mg, and drip at 8 mg an hour. Gastrointestinal was consulted for possible EGD. She is currently hemodynamically stable awake and alert to person place and time Review of Systems Constitutional: COMPLAINS OF: Fatigue, DENIES: Fever, Weight gain, Weight loss Endocrine: DENIES: Polydipsia, Polyuria Eyes: DENIES: Blurred vision, Eye pain Ears, nose, mouth, throat: DENIES: Tinnitus Respiratory: DENIES: Apneas, Shortness of breath Cardiovascular: DENIES: Chest pain, Claudication Gastrointestinal: COMPLAINS OF: Nausea, DENIES: Abdominal pain, Black stools, Bloody stools, Vomiting Genitourinary: DENIES: Urgency Musculoskeletal: COMPLAINS OF: Joint pain Integumentary: DENIES: Abnormal pigmentation Hematologic/lymphatic: DENIES: Bruising Immunologic/allergic: DENIES: Eczema Neurologic: DENIES: Abnormal gait, Headache Psychiatric: DENIES: Anxiety, Confusion Past Family Social History Allergies: Coded Allergies: penicillin G (Verified Allergy, Severe, 11/04/17) pt. states reaction was so long ago she no longer remembers reaction Sulfa (Sulfonamide Antibiotics) (Verified Adverse Reaction, Intermediate, 11/04/17) pt. states she gets yeast infections while on sulfa drugs Past Medical History Hiatal hernia Vitamin B12 deficiency Peripheral neuropathy Osteoporosis Osteoarthritis History of skin cancer/melanoma Essential hypertension Dyslipidemia History of sternal fracture Prior history of tobaccoism Prior history of EtOH use Past Surgical History T&A History of right breast lumpectomy/lymph node biopsy 1998 Port-A-Cath placement Left wrist ORIF distal radius History of right total hip arthroplasty 04/07 with right total hip arthroplasty due to traumatic fall with avascular necrosis involving the right femoral head Reported Medications Active Colace (Docusate Sodium) 100 Mg Capsule 1 Tab PO BID Xarelto (Rivaroxaban) 10 Mg Tab 10 Mg PO DAILY Percocet (Oxycodone-Acetaminophen) 5-325 mg Tab 1 Tab PO Q4H PRN Thera/Beta-Carotene (Multiple Vitamin) 1 Tab Tab 1 Tab PO DAILY Reported Xarelto (Rivaroxaban) 10 Mg Tab 10 Mg PO DAILY Metoprolol Tartrate 25 Mg Tab 25 Mg PO BID Tramadol (Tramadol HCl) 50 Mg Tab 50 Mg PO Q4H PRN Megestrol (Megestrol Acetate) 40 Mg Tab 40 Mg PO QID Lipitor (Atorvastatin Calcium) 20 Mg Tab 20 Mg PO HS Active Ordered Medications Reviewed in EMR Family History Father with COPD. Mother with osteoarthritis. Both . Social History 40 pack per day tobacco use. Quit 1 month ago. 2-3 alcohol beverages nightly. Quit 1 month ago. Denies illicit drug use Physical Exam Vital Signs Vital Signs Date Time Temp Pulse Resp B/P (MAP) Pulse Ox O2 Delivery O2 Flow Rate FiO2 11/04/17 06:32 Nasal Cannula 2.00 11/04/17 02:34 98.7 120 24 154/72 (99) 100 Physical Exam GENERAL: 71-year-old female, resting in bed in no acute distress SKIN: Warm and dry. Well perfused. No rash HEAD: Atraumatic. Normocephalic. EYES: Pupils equal and round. Around 3 mm bilaterally and reactive No scleral icterus. No injection or drainage. ENT: No nasal bleeding or discharge. Mucous membranes pink and moist. NECK: Trachea midline. No JVD. CARDIOVASCULAR: Regular rate and rhythm. S1, S2. No S4. Without murmur RESPIRATORY: Clear to auscultation. No wheezing, rales or rhonchi. Breath sounds equal bilaterally. GASTROINTESTINAL: Abdomen soft, non-tender, nondistended. Hypoactive bowel sounds are appreciated. MUSCULOSKELETAL: Extremities without edema skin peripheral edema. Right inguinal scarring is clean dry and intact. No erythema. NEUROLOGICAL: Awake and alert. No obvious cranial nerve deficits. Motor grossly within normal limits. Five out of 5 muscle strength in the arms and legs. Normal speech. PSYCHIATRIC: Appropriate mood and affect; insight and judgment normal. Laboratory Laboratory Tests Test 11/04/17 02:50 11/04/17 05:30 White Blood Count 8.3 Red Blood Count 2.30 Hemoglobin 7.2 Hematocrit 20.7 Mean Corpuscular Volume 89.9 Mean Corpuscular Hemoglobin 31.0 Mean Corpuscular Hemoglobin Concent 34.5 Red Cell Distribution Width 14.4 Platelet Count 374 Mean Platelet Volume 7.0 Neutrophils (%) (Auto) 81.4 Lymphocytes (%) (Auto) 6.9 Monocytes (%) (Auto) 11.6 Eosinophils (%) (Auto) 0.0 Basophils (%) (Auto) 0.1 Neutrophils # (Auto) 6.8 Lymphocytes # (Auto) 0.6 Monocytes # (Auto) 1.0 Eosinophils # (Auto) 0.0 Basophils # (Auto) 0.0 CBC Comment DIFF FINAL Differential Comment Prothrombin Time 11.4 Prothromb Time International Ratio 1.1 Activated Partial Thromboplast Time 28.9 Blood Urea Nitrogen 15 Creatinine 0.94 Random Glucose 116 Total Protein 6.1 Albumin 2.6 Calcium Level 7.6 Alkaline Phosphatase 81 Aspartate Amino Transf (AST/SGOT) 60 Alanine Aminotransferase (ALT/SGPT) 44 Total Bilirubin 0.8 Sodium Level 137 Potassium Level 3.8 Chloride Level 105 Carbon Dioxide Level 20.9 Anion Gap 11 Estimat Glomerular Filtration Rate 59 Ammonia 24 Lipase 88 Fibrinogen 407 Phosphorus Level 2.2 Magnesium Level 1.7 Result Diagram: 11/04/17 0250 11/04/17 0250 Imaging Last Impressions Chest X-Ray 11/04/17 0244 Signed Impressions: Service Date/Time: Saturday, November 04, 2017 02:52 - CONCLUSION: No acute disease. No significant change has occurred. Danny Ortega MD Hip and Pelvis X-Ray 11/04/17 0000 Signed Impressions: Service Date/Time: Saturday, November 04, 2017 03:32 - CONCLUSION: 1. Status post right hip prosthesis. 2. No acute fracture joint dislocation. 3. No significant change compared to prior exam. Danny Ortega MD Septic Shock Reassessment Septic shock perfusion: reassessment completed Caprini VTE Risk Assessment Caprini VTE Risk Assessment: Mod/High Risk (score >= 2) VTE Pharm Contraindication: Active bleeding Caprini Risk Assessment Model Point Value = 1 Point Value = 2 Point Value = 3 Point Value = 5 Age 41-60 Minor surgery BMI > 25 kg/m2 Swollen legs Varicose veins or History of unexplained or recurrent spontaneous Oral contraceptives or hormone replacement Sepsis (< 1 month) Serious lung disease, including pneumonia (< 1 month) Abnormal pulmonary function Acute myocardial infarction Congestive heart failure (< 1 month) History of inflammatory bowel disease Medical patient at bed rest Age 61-74 Arthroscopic surgery Major open surgery (> 45 min) Laparoscopic surgery (> 45 min) Malignancy Confined to bed (> 72 hours) Immobilizing plaster cast Central venous access Age >= 75 History of VTE Family history of VTE Factor V Leiden Prothrombin [id number] Lupus anticoagulant Anticardiolipin antibodies Elevated serum homocysteine Heparin-induced thrombocytopenia Other congenital or acquired thrombophilia Stroke (< 1 month) Elective arthroplasty Hip, pelvis, or leg fracture Acute spinal cord injury (< 1 month) Prophylaxis Regimen Total Risk Factor Score Risk Level Prophylaxis Regimen 0-1 Low Early ambulation 2 Moderate Order ONE of the following: *Sequential Compression Device (SCD) *Heparin 5000 units SQ BID 3-4 Higher Order ONE of the following medications: *Heparin 5000 units SQ TID *Enoxaparin/Lovenox 40 mg SQ daily (WT < 150 kg, CrCl > 30 mL/min) *Enoxaparin/Lovenox 30 mg SQ daily (WT < 150 kg, CrCl > 10-29 mL/min) *Enoxaparin/Lovenox 30 mg SQ BID (WT < 150 kg, CrCl > 30 mL/min) AND/OR *Sequential Compression Device (SCD) 5 or more Highest Order ONE of the following medications: *Heparin 5000 units SQ TID (Preferred with Epidurals) *Enoxaparin/Lovenox 40 mg SQ daily (WT < 150 kg, CrCl > 30 mL/min) *Enoxaparin/Lovenox 30 mg SQ daily (WT < 150 kg, CrCl > 10-29 mL/min) *Enoxaparin/Lovenox 30 mg SQ BID (WT < 150 kg, CrCl > 30 mL/min) AND *Sequential Compression Device (SCD) Assessment and Plan Assessment and Plan Neuro/Psych: Peripheral neuropathy Vitamin B12 deficiency Anorexia Acetaminophen (Ofirmev) 1 g IV every 8 hours. Fever/pain 1 through 5 Morphine sulfate 2 mg IV distress. Pain 6-10 On oxycodone/acetaminophen 5/25 one tablet every 4 hours when necessary pain at group home Holding tramadol 50 mg every 4 hours. Pain Holding megestrol 40 mg 4 times a day for anorexia CV Hypertension Dyslipidemia Home medications include metoprolol 25 mg twice a day for hypertension. Continued Home medications include atorvastatin 20 mg by mouth daily for dyslipidemia. Held Currently on normal saline at 84 cc an hour As needed labetalol, hydralazine and Nitropaste to maintain systolic blood pressure less than 160 Resp: History of tobaccoism Nasal cannula to maintain saturations greater than equal to 92% Incentive spirometry while awake Albuterol/ipratropium aerosols every 6 hours with albuterol aerosols every 2 hours. Dyspnea Self education book provided for cessation GI: Possible upper GI bleed History of hiatal hernia Hypoalbuminemia Elevated AST Boluses pantoprazole 80 mg. Currently pantoprazole drip at 8 mg an hour. Start octreotide drip at 50 an hour. Gastroenterology consultation. Plan for endoscopy in a.m. 11/05 Serial hemoglobins every 6 hours : No indication for Ya catheter Endo: Sliding-scale insulin with Accu-Cheks to maintain euglycemia/low regimen with Novulin R every 6 hours Renal: Creatinine currently within normal limits Monitor urine output Accurate I's and O's Heme: Acute blood loss anemia - normocytic normochromic Rivaroxaban use Received KCentra 2500 units in ED to reverse NOAC Received 2 units PRBCs and 2 FFP currently. Serial hemoglobins every 6 hours Coags within normal limits. ID: Monitor for infection FEN: Hypophosphatemia Replacing electrolytes as clinically indicated per ICU electrolyte protocol MSK: History recent right total hip arthrodesis via right femoral head avascular necrosis Access - Utilize peripheral IV. Central line if indicated Prophylaxis - GI - pantoprazole drip - DVT - SCD/holding pharmacological prophylaxis in light of upper GI bleed Level III admission Code Status Full code Discussed Condition With Patient. Dr. Anthony. Care plan discussed and all questions answered. Problem Qualifiers (1) HTN (hypertension): Qualified Codes: I10 - Essential (primary) hypertension (2) Fracture of femoral neck, right, closed: Qualified Codes: S72.001D - Fracture of unspecified part of neck of right femur , subsequent encounter for closed fracture with routine healing (3) Breast CA: Qualified Codes: C50.911 - Malignant neoplasm of unspecified site of right female breast; Z17.1 - Estrogen receptor negative status [ER-] Topher Madrigal MD Nov 04, 2017 06:47
[2017-11-04] MEDS: MAGNESIUM SULFATE 1 GM PREMIX 100 ML IV SCH ×2 (07:35→17:54)
[2017-11-04] MEDS: DOCUSATE SODIUM 50 MG/SENNA 8.6 MG TAB PO SCH ×2 (09:00→21:45)
[2017-11-04] MEDS ORDERED: SODIUM CHLORIDE 0.9% FLUSH 10 ML FLUSH IV FLUSH SCH (09:00)
[2017-11-04] MEDS: SODIUM CHLORIDE 0.9% FLUSH 10 ML FLUSH IV FLUSH SCH ×2 (09:48→21:45)
[2017-11-04] MEDS: MORPHINE SULFATE 4 MG/ML INJ IV PUSH PRN (09:48)
--- NOTE | 2017-11-04 10:28 | PD.CONS ---
HPI History of Present Illness This is a 71 year old F who presented to the emergency department via ambulance , transported from [place], for apparent coffee ground emesis. Pt is a poor historian and information has been incorporated from reviewing the chart. 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 Pt reports two "small" episodes of vomiting yesterday. Denies hematemesis and coffee ground emesis, however, coffee ground emesis was apparently reported by [place] staff. Pt denies acid reflux, abdominal pain, hematochezia, melena, unintentional weight loss. Does reports some continued nausea. Reports last EGD and colonoscopy were six years ago, states normal exams. Pt was previously heavy drinker until about a month ago. She reports she was drinking 2-3 cocktails a night. Current smoker, approx pack a day. Denies illicit drug use. H/H at time of admission was 7.2/20.7. 2 Units of PRBCs ordered, one transfusing now. Xarelto has been discontinued, 2 U FFP ordered. Currently on Protonix gtt. (Ivonne Moreira) PFSH Past Medical History Arthritis Breast cancer Hyperlipidemia HTN Past Surgical History Tonsillectomy R breast lumpectomy Left wrist Hip (Ivonne Moreira) Coded Allergies: penicillin G (Verified Allergy, Severe, 11/04/17) pt. states reaction was so long ago she no longer remembers reaction Sulfa (Sulfonamide Antibiotics) (Verified Adverse Reaction, Intermediate, 11/04/17) pt. states she gets yeast infections while on sulfa drugs Social History Previously heavy ETOH- quit one months ago- reports was drinking 2-3 cocktails a night Smoker- pack a day Denies illicit drug use Lives at [place] (Ivonne Moreira) Review of Systems Gastrointestinal: COMPLAINS OF: Nausea, Vomiting, DENIES: Abdominal pain, Black stools, Bloody stools, Constipation, Diarrhea, Difficulty Swallowing, Swelling of Abdomen, Heartburn, Hematemesis (Ivonne Moreira) GI Exam Vitals I&O Vital Signs Date Time Temp Pulse Resp B/P (MAP) Pulse Ox O2 Delivery O2 Flow Rate FiO2 11/04/17 09:08 98.5 98 22 188/93 100 11/04/17 08:38 98.6 18 171/77 98 11/04/17 07:50 100 Nasal Cannula 3.00 11/04/17 07:49 98.5 102 19 151/80 100 11/04/17 07:35 99.1 112 16 152/72 100 11/04/17 06:32 Nasal Cannula 2.00 11/04/17 02:34 98.7 120 24 154/72 (99) 100 I/O 11/03/17 11/03/17 11/03/17 11/04/17 11/04/17 11/04/17 07:00 15:00 23:00 07:00 15:00 23:00 Intake Total 455 ml Balance 455 ml Intake Packed Cells 400 ml Blood Product IV Normal Saline Flush 55 ml Laboratory Test 11/04/17 02:50 11/04/17 05:30 11/04/17 09:00 White Blood Count 8.3 TH/MM3 Red Blood Count 2.30 MIL/MM3 Hemoglobin 7.2 GM/DL Hematocrit 20.7 % Mean Corpuscular Volume 89.9 FL Mean Corpuscular Hemoglobin 31.0 PG Mean Corpuscular Hemoglobin Concent 34.5 % Red Cell Distribution Width 14.4 % Platelet Count 374 TH/MM3 Mean Platelet Volume 7.0 FL Neutrophils (%) (Auto) 81.4 % Lymphocytes (%) (Auto) 6.9 % Monocytes (%) (Auto) 11.6 % Eosinophils (%) (Auto) 0.0 % Basophils (%) (Auto) 0.1 % Neutrophils # (Auto) 6.8 TH/MM3 Lymphocytes # (Auto) 0.6 TH/MM3 Monocytes # (Auto) 1.0 TH/MM3 Eosinophils # (Auto) 0.0 TH/MM3 Basophils # (Auto) 0.0 TH/MM3 CBC Comment DIFF FINAL Differential Comment Prothrombin Time 11.4 SEC Prothromb Time International Ratio 1.1 RATIO Activated Partial Thromboplast Time 28.9 SEC Blood Urea Nitrogen 15 MG/DL Creatinine 0.94 MG/DL Random Glucose 116 MG/DL Total Protein 6.1 GM/DL Albumin 2.6 GM/DL Calcium Level 7.6 MG/DL Alkaline Phosphatase 81 U/L Aspartate Amino Transf (AST/SGOT) 60 U/L Alanine Aminotransferase (ALT/SGPT) 44 U/L Total Bilirubin 0.8 MG/DL Sodium Level 137 MEQ/L Potassium Level 3.8 MEQ/L Chloride Level 105 MEQ/L Carbon Dioxide Level 20.9 MEQ/L Anion Gap 11 MEQ/L Estimat Glomerular Filtration Rate 59 ML/MIN Ammonia 24 MCMOL/L Lipase 88 U/L Fibrinogen 407 mg/dL Phosphorus Level 2.2 MG/DL Magnesium Level 1.7 MG/DL Physical Examination HEENT: Normocephalic; atraumatic CHEST: Even/unlabored CARDIAC: RRR ABDOMEN: Soft, nondistended, nontender; bowel sounds active EXTREMITIES: No clubbing, cyanosis, or edema. SKIN: Pale CHEMICAL PACKAGER: No focal deficits; alert and oriented times three., poor historian (Ivonne Moreira) Assessment and Plan Plan Assessment: - Coffee ground emesis- Reported by [place] staff- pt reports two "small" episodes of emesis yesterday. Denies hematemesis and coffee ground emesis. Pt is on Xarelto S/P total hip replacement for avascular necrosis on Oct 29. H/H currently 7.2/20.7- 2 U PRBC ordered- one transfusing- 2 U FFP ordered. Protonix gtt. Octreotide gtt. Previously heavy ETOH- quit drinking a month ago- was drinking 2-3 cocktails a night Current smoker- pack a day Plan: - EGD tomorrow - Obtain consents - NPO after MN - Continue Protonix gtt - Octreotide - Monitor H/H - Transfuse as needed - Hold anticoagulation - Supportive care - Further recommendations to follow Pt has been seen and examined by myself and Dr. Mcelroy and this note is written on her behalf (Ivonne Moreira) Physician Comments seen, examined agree with above egd in am abdominal us clear liquid diet if no nausea, vomiting npo after midnight (Amirah Mcelroy MD) Ivonne Moreira Nov 04, 2017 10:28 Amirah Mcelroy MD Nov 04, 2017 15:14
[2017-11-04] MEDS ORDERED: NITROGLYCERIN 2% OINT 1 GM PACKET TOPICAL PRN (10:30)
[2017-11-04] MEDS ORDERED: LABETALOL HCL 100 MG/20 ML VIAL IV PUSH PRN (10:30)
[2017-11-04] MEDS ORDERED: FUROSEMIDE 20 MG/2 ML VIAL IV PUSH ONE (10:30)
[2017-11-04] MEDS ORDERED: DEXTROSE 50% IN WATER 50 ML VIAL(D50) IV PUSH PRN (10:45)
[2017-11-04] MEDS ORDERED: POTASSIUM PHOSPHATE MONOBASIC 500 MG TAB PO PRN (10:45)
[2017-11-04] MEDS ORDERED: POTASSIUM PHOSPHATE INJ 30 MMOL in SODIUM CHLOR 0.9% 250 ML INJ 250 ML IV PRN (10:45)
[2017-11-04] MEDS ORDERED: MAGNESIUM OXIDE 400 MG TAB PO PRN (10:45)
[2017-11-04] MEDS ORDERED: POTASSIUM CHLOR 20 MEQ PREMIX 100 ML IV PRN (10:45)
[2017-11-04] MEDS ORDERED: GLUCAGON 1 MG/ML VIAL OTHER PRN (10:45)
[2017-11-04] MEDS ORDERED: MAGNESIUM SULFATE INJ 2 GM in SODIUM CHLORIDE 0.9% INJ 96 ML IV PRN (10:45)
[2017-11-04] MEDS ORDERED: MAGNESIUM SULFATE INJ 4 GM in SODIUM CHLORIDE 0.9% INJ 92 ML IV PRN (10:45)
[2017-11-04] MEDS ORDERED: POTASSIUM CHLORIDE 25 MEQ EFFERVESCENT TAB PO PRN (10:45)
[2017-11-04] MEDS ORDERED: POTASSIUM PHOSPHATE MONOBASIC 500 MG TAB PO/TUBE PRN (10:45)
[2017-11-04] MEDS ORDERED: SODIUM PHOSPHATE INJ 30 MMOL in SODIUM CHLOR 0.9% 250 ML INJ 240 ML IV PRN (10:45)
[2017-11-04] MEDS ORDERED: POTASSIUM CHLOR 40 MEQ PREMIX 100 ML IV PRN ×2 (10:45)
[2017-11-04] MEDS ORDERED: OCTREOTIDE INJ 50 MCG/ML AMP IV PUSH ONE (11:00)
[2017-11-04] MEDS: INSULIN NovoLIN REGULAR SUPPLEMENTAL SCALE SQ SCH ×2 (12:00→18:00)
[2017-11-04] MEDS: OCTREOTIDE INJ 500 MCG in SODIUM CHLORID 0.9% 500 ML INJ 499.5 ML IV SCH ×2 (12:25→21:44)
[2017-11-04 15:26] LABS: HEMATOCRIT 32.5 % (35.0-46.0); HEMOGLOBIN 11.3 GM/DL (11.6-15.3)
--- NOTE | 2017-11-04 16:54 | RADRPT ---
EXAM DATE/TIME: 11/04/2017 16:07 [facility] COMPARISON: CT ABDOMEN & PELVIS W CONTRAST, July 16, 2014, 11:13. INDICATIONS : Anemia. ETOH abuse. MEDICAL HISTORY : Hypercholesterolemia. Hypertension. GERD. Arthritis. Ostesoporosis. Right breast cancer. Chemothe rapy. Radiation therapy. SURGICAL HISTORY : Tonsillectomy. Right breast lumpectomy. Port placement and removal. Left wrist ORIF. Right hip martinez rgery. ENCOUNTER: Initial ACUITY: 1 day PAIN SCORE: 0/10 LOCATION: Bilateral upper quadrant MEASUREMENTS: LIVER: 13.1 cm length COMMON DUCT: 8 mm RIGHT KIDNEY: 8.9 x 4.1 x 4.0 cm LEFT KIDNEY: 8.0 x 4.0 x 4.2 cm SPLEEN: 8.6 cm length AORTA: 1.8cm maximal FINDINGS: LIVER: Normal echotexture without focal lesion or ductal dilatation. There is minimal ascitic fluid noted i n the right upper quadrant. COMMON DUCT: No intraluminal mass or stone visualized. GALLBLADDER: Contains no stones, demonstrates no wall thickening or pericholecystic fluid. PANCREAS: The visualized portions are within normal limits. RIGHT KIDNEY: No hydronephrosis, stone or mass. LEFT KIDNEY: No hydronephrosis, stone or mass. SPLEEN: No focal lesion. AORTA: Non aneurysmal. IVC: Within normal limits. CONCLUSION: 1. Minimal fluid noted in the right upper quadrant. 2. The liver appears unremarkable. 3. Unremarkable gallbladder. 4. The common bile duct is at the upper limits of normal in size with no evidence of choledocholithia sis. Tk Zhu MD on November 04, 2017 at 16:49 Board Certified Radiologist. This report was verified electronically.
[2017-11-04] MEDS: PANTOPRAZOLE INJ 80 MG in SODIUM CHLORIDE 0.9% INJ 100 ML IV SCH ×2 (17:00→18:05)
[2017-11-04] MEDS ORDERED: MAGNESIUM SULFATE 1 GM PREMIX 100 ML IV ONE (17:45)
[2017-11-04] MEDS: SODIUM CHLOR 0.9% 1000 ML INJ 1,000 ML IV SCH ×2 (18:05→21:44)
[2017-11-04 21:08] LABS: HEMATOCRIT 34.1 % (35.0-46.0); HEMOGLOBIN 11.9 GM/DL (11.6-15.3)
[2017-11-04] MEDS: METOPROLOL TARTRATE 25 MG TAB PO SCH (21:45)
[2017-11-05] VITALS (24 sets, daily range): BP systolic 140–181; BP diastolic 67–80; PULSE 62–118; RESP 16–44; TEMP 98.3–99.1; O2SAT 91–100
[2017-11-05] MEDS: CHLORHEXIDINE GLUCONATE 2 % 1 PACK (2 CLOTHS) TOP SCH (04:00)
[2017-11-05 04:15] LABS: PROTHROMBIN TIME - PATIENT 10.6 SEC (9.8-11.6)
[2017-11-05] MEDS: PANTOPRAZOLE INJ 80 MG in SODIUM CHLORIDE 0.9% INJ 100 ML IV SCH ×2 (04:18→14:53)
[2017-11-05 04:27] LABS: ALBUMIN 2.9 GM/DL (3.4-5.0); ALKALINE PHOSPHATASE 85 U/L (45-117); ALT (GPT) 37 U/L (10-53); AST (GOT) 35 U/L (15-37); BICARBONATE 27.2 MEQ/L (21.0-32.0); BLOOD UREA NITROGEN 7 MG/DL (7-18); CALCIUM 8.4 MG/DL (8.5-10.1); CHLORIDE 98 MEQ/L (98-107); CREATININE 0.82 MG/DL (0.50-1.00); GLOMERULAR FILTRATION RATE 69 ML/MIN (>89); GLUCOSE,RANDOM 122 MG/DL (74-106); MAGNESIUM 2.1 MG/DL (1.5-2.5); PHOSPHORUS 2.6 MG/DL (2.5-4.9); SODIUM (NA) 135 MEQ/L (136-145); TOTAL BILIRUBIN ADULT 2.3 MG/DL (0.2-1.0); TOTAL PROTEIN 6.7 GM/DL (6.4-8.2)
[2017-11-05] MEDS: POTASSIUM CHLOR 20 MEQ PREMIX 100 ML IV PRN ×3 (05:25→14:54)
[2017-11-05] MEDS: INSULIN NovoLIN REGULAR SUPPLEMENTAL SCALE SQ SCH ×4 (06:00→18:00)
[2017-11-05] MEDS: SODIUM CHLOR 0.9% 1000 ML INJ 1,000 ML IV SCH (06:03)
[2017-11-05] MEDS: OCTREOTIDE INJ 500 MCG in SODIUM CHLORID 0.9% 500 ML INJ 499.5 ML IV SCH (06:05)
--- NOTE | 2017-11-05 07:47 | HHI.CCPN ---
Subjective Remarks/Hospital Course 71-year-old female. Her date of admission 11/04/2017 . Past medical history includes hypertension, dyslipidemia, history melanoma, history of breast cancer 1999 status post chemotherapy and port placement, vitamin B-12 deficiency, history of sternal fracture, osteoporosis osteoarthritis of hiatal hernia. Prior history of both tobaccoism EtOH use but has quit for the past month. She initially presented to [facility] from [facility] by EMS transport as she was noted to have coffee-ground emesis today. Patient is on postoperative Rivaroxaban for recent right total hip replacement due to traumatic avascular necrosis 10/29/2017. PSA had a right total hip replacement on 04/[address] Melchor.. P no insidious. No aspirin use. No recent steroid. Use. No black/ tarry stools, hematochezia or Bright red blood per rectum. Her chief complaint is nausea. Denies chest pain, abdominal pain, shortness of breath, emesis or diarrhea. Hemoglobin initially was at 7.1. Patient is becoming transfuse 2 units PRBCs. Patient was given pantoprazole bolus 80 mg, and drip at 8 mg an hour. Gastrointestinal was consulted for possible EGD. She is currently hemodynamically stable awake and alert to person place and time 11/05/17: Patient received 2 units of FFP and 2 units of PRBC yesterday. CBC pending today. EGD planned for today, remained hemodynamically stable overnight without evidence of active GI bleed. K 2.8 getting replacement Objective Vital Signs Date Time Temp Pulse Resp B/P (MAP) Pulse Ox O2 Delivery O2 Flow Rate FiO2 11/05/17 07:34 98 Nasal Cannula 2.00 11/05/17 06:00 87 11/05/17 04:00 98.5 16 143/70 (94) Intake and Output 11/05/17 11/05/17 11/06/17 08:00 16:00 00:00 Intake Total 387.4 ml Output Total 1200 ml Balance -812.6 ml Result Diagram: 11/04/17204911/05/17 0352 Imaging Last Impressions Chest X-Ray 11/04/17 0244 Signed Impressions: Service Date/Time: Saturday, November 04, 2017 02:52 - CONCLUSION: No acute disease. No significant change has occurred. Danny Ortega MD Hip and Pelvis X-Ray 11/04/17 0000 Signed Impressions: Service Date/Time: Saturday, November 04, 2017 03:32 - CONCLUSION: 1. Status post right hip prosthesis. 2. No acute fracture joint dislocation. 3. No significant change compared to prior exam. Danny Ortega MD Objective Remarks GENERAL: 71-year-old female, resting in bed in no acute distress SKIN: Warm and dry. Well perfused. No rash HEAD: Atraumatic. Normocephalic. EYES: Pupils equal and round. Around 3 mm bilaterally and reactive ENT: No nasal bleeding or discharge. Mucous membranes pink and moist. NECK: Trachea midline. No JVD. CARDIOVASCULAR: Regular rate and rhythm. S1, S2. No S4. Without murmur RESPIRATORY: Clear to auscultation. No wheezing, rales or rhonchi. Breath sounds equal bilaterally. GASTROINTESTINAL: Abdomen soft, non-tender, nondistended. Hypoactive bowel sounds are appreciated. MUSCULOSKELETAL: Extremities without edema skin peripheral edema. Right inguinal scarring is clean dry and intact. No erythema. NEUROLOGICAL: Awake and alert. No obvious cranial nerve deficits. Motor grossly within normal limits. Five out of 5 muscle strength in the arms and legs. Normal speech. A/P Assessment and Plan Neuro/Psych: Peripheral neuropathy Vitamin B12 deficiency Anorexia Acetaminophen (Ofirmev) 1 g IV every 8 hours. Fever/pain 1 through 5 Morphine sulfate 2 mg IV distress. Pain 6-10 On oxycodone/acetaminophen 5/25 one tablet every 4 hours when necessary pain at [facility] Holding tramadol 50 mg every 4 hours Holding megestrol 40 mg 4 times a day for anorexia CV Hypertension Dyslipidemia Home medications include metoprolol 25 mg twice a day for hypertension. Continued Home medications include atorvastatin 20 mg by mouth daily for dyslipidemia. Held Currently on normal saline at 84 cc an hour As needed labetalol, hydralazine and Nitropaste to maintain systolic blood pressure less than 160 Resp: History of tobaccoism Nasal cannula to maintain saturations greater than equal to 90% Incentive spirometry while awake Albuterol/ipratropium aerosols every 6 hours with albuterol aerosols every 2 hours. Dyspnea GI: Upper GI bleed History of hiatal hernia Hypoalbuminemia Elevated AST Boluses pantoprazole 80 mg and pantoprazole drip at 8 mg an hour. Octreotide drip at 50 an hour. Gastroenterology consultation. Plan for endoscopy today 11/05 CBC pending : No indication for Ya catheter Endo: Sliding-scale insulin with Accu-Cheks to maintain euglycemia/low regimen with Novulin R every 6 hours Renal: Creatinine currently within normal limits Monitor urine output Accurate I's and O's Heme: Acute blood loss anemia - normocytic normochromic Rivaroxaban use Received KCentra 2500 units in ED to reverse NOAC Received 2 units PRBCs and 2 FFP CBC today pending Coags within normal limits. ID: Monitor for infection FEN: Hypophosphatemia Replacing electrolytes as clinically indicated per ICU electrolyte protocol MSK: History recent right total hip arthrodesis via right femoral head avascular necrosis Access - Utilize peripheral IV. Central line if indicated Prophylaxis - GI - pantoprazole drip - DVT - SCD/holding pharmacological prophylaxis in light of upper GI bleed Level III Juan Carlos Pizarro MD Nov 05, 2017 07:47
--- NOTE | 2017-11-05 07:49 | EKG ---
Date Performed: 11/04/2017 Time Performed: 02:39:16 PTAGE: 71 years EKG: SINUS TACHYCARDIA Baseline artifact No obvious change from the prior tracing PREVIOUS TRACING : 04/07/2017 23.57 DOCTOR: Norberto Burks Interpretating Date/Time 11/05/2017 07:48:49
[2017-11-05 08:45] LABS: BASOPHIL % 0.2 % (0.0-2.0); EOSINOPHIL # 0.2 TH/MM3 (0-0.4); EOSINOPHIL % 2.1 % (0.0-4.0); HEMATOCRIT 34.1 % (35.0-46.0); HEMOGLOBIN 11.9 GM/DL (11.6-15.3); LYMPH % 6.8 % (9.0-44.0); LYMPHOCYTE # 0.5 TH/MM3 (1.0-4.8); MEAN CELL VOLUME 89.3 FL (80.0-100.0); MEAN CORPUSCULAR HEMOGLOBIN 31.1 PG (27.0-34.0); MEAN CORPUSCULAR HGB CONC 34.8 % (32.0-36.0); MEAN PLATELET VOLUME 7.2 FL (7.0-11.0); MONO % 13.5 % (0.0-8.0); NEUT % 77.4 % (16.0-70.0); PLATELET COUNT 345 TH/MM3 (150-450); RED BLOOD COUNT 3.82 MIL/MM3 (4.00-5.30); RED CELL DISTRIBUTION WIDTH 14.3 % (11.6-17.2); WHITE BLOOD COUNT 7.7 TH/MM3 (4.0-11.0)
[2017-11-05] MEDS: SODIUM CHLORIDE 0.9% FLUSH 10 ML FLUSH IV FLUSH SCH ×2 (09:00→20:14)
[2017-11-05] MEDS: MULTIVITAMIN TAB PO SCH (09:20)
[2017-11-05] MEDS: DOCUSATE SODIUM 50 MG/SENNA 8.6 MG TAB PO SCH ×2 (09:20→20:14)
[2017-11-05] MEDS: METOPROLOL TARTRATE 25 MG TAB PO SCH ×2 (09:21→20:14)
[2017-11-05] MEDS ORDERED: PROPOFOL 200 MG/20 ML AMP IV ONE (12:00)
--- NOTE | 2017-11-05 12:01 | PD.PROCEDR ---
GI Procedure PROCEDURE PERFORMED EGD with biopsy INDICATION FOR PROCEDURE Coffee-ground emesis PROCEDURE: The procedure, risks and benefits were discussed with Ms. Whitaker and informed consent was obtained. Anesthesia sedated her with Diprivan. She was placed in the left lateral decubitus position. EGD: The Pentax videoscope was introduced through the oropharynx and advanced to the second portion of the duodenum under direct visualization. Retroflexion was performed in the stomach. FINDINGS: The esophagus there was severe erosive ulcerating esophagitis in the distal esophagus this was biopsied The stomach there was a moderate size hiatal hernia there was gastritis in the antrum this was biopsied otherwise unremarkable The duodenum there was superficial ulceration in the duodenal bulb this was biopsied the rest of the duodenum was unremarkable ESTIMATED BLOOD LOSS: None SPECIMENS REMOVED: Esophageal, gastric, duodenal biopsies COMPLICATIONS: None IMPRESSION: Severe erosive ulcerated esophagitis Hiatal hernia Gastritis Duodenal ulcers PLAN: Await biopsies Continue PPI would recommend pantoprazole 40 mg twice a day EGD in 2 months Avoid NSAIDs and aspirin Okay to continue use of anticoagulation Follow-up with GI post discharge Ashkan Myles MD Nov 05, 2017 12:01
[2017-11-05] MEDS ORDERED: DO NOT ADM ANY ANTICOAGULANT DRUGS PRN (12:10)
[2017-11-05] MEDS: MORPHINE SULFATE 4 MG/ML INJ IV PUSH PRN ×2 (14:55→23:32)
[2017-11-06] VITALS (17 sets, daily range): BP systolic 129–156; BP diastolic 63–72; PULSE 62–105; RESP 13–34; TEMP 97.9–98.8; O2SAT 76–99
[2017-11-06] MEDS: oxyCODONE/ACETAMINOPHEN 5 MG/325 MG TAB PO PRN ×3 (01:00→20:09)
[2017-11-06] MEDS: CHLORHEXIDINE GLUCONATE 2 % 1 PACK (2 CLOTHS) TOP SCH (04:00)
[2017-11-06] MEDS: SODIUM CHLOR 0.9% 1000 ML INJ 1,000 ML IV SCH ×3 (04:13→19:31)
[2017-11-06] MEDS: PANTOPRAZOLE INJ 80 MG in SODIUM CHLORIDE 0.9% INJ 100 ML IV SCH ×2 (04:13→07:53)
[2017-11-06] MEDS: INSULIN NovoLIN REGULAR SUPPLEMENTAL SCALE SQ SCH ×4 (06:00→18:00)
[2017-11-06] MEDS: hydrALAZINE HCL 20 MG/ML VIAL IV PUSH PRN (06:12)
[2017-11-06 07:16] LABS: HEMATOCRIT 37.4 % (35.0-46.0); HEMOGLOBIN 12.9 GM/DL (11.6-15.3); MEAN CELL VOLUME 91.9 FL (80.0-100.0); MEAN CORPUSCULAR HEMOGLOBIN 31.7 PG (27.0-34.0); MEAN CORPUSCULAR HGB CONC 34.5 % (32.0-36.0); MEAN PLATELET VOLUME 7.2 FL (7.0-11.0); PLATELET COUNT 398 TH/MM3 (150-450); RED BLOOD COUNT 4.07 MIL/MM3 (4.00-5.30); RED CELL DISTRIBUTION WIDTH 14.7 % (11.6-17.2); WHITE BLOOD COUNT 8.7 TH/MM3 (4.0-11.0)
[2017-11-06] MEDS: MULTIVITAMIN TAB PO SCH (07:54)
[2017-11-06] MEDS: SODIUM CHLORIDE 0.9% FLUSH 10 ML FLUSH IV FLUSH SCH ×2 (07:54→20:09)
[2017-11-06] MEDS: METOPROLOL TARTRATE 25 MG TAB PO SCH ×2 (07:55→20:09)
[2017-11-06] MEDS: DOCUSATE SODIUM 50 MG/SENNA 8.6 MG TAB PO SCH ×2 (07:55→20:08)
[2017-11-06] MEDS: PANTOPRAZOLE SOD 40 MG DELAYED RELEASE TAB PO SCH ×2 (14:42→20:08)
[2017-11-06 16:57] LABS: BACTERIA, URINE MOD /hpf; BILIRUBIN, URINE NEG (NEG); BLOOD, URINE TRACE (NEG); GLUCOSE,URINE NEG (NEG); KETONE, URINE NEG (NEG); NITRITE,URINE POS (NEG); URINE COLOR DARK-YELLOW (YELLW/STRAW); URINE LEUKOCYTE ESTERASE LARGE (NEG); WHITE BLOOD CELL CLUMPS FEW
--- NOTE | 2017-11-06 18:13 | HHI.PR ---
Subjective Remarks Pt has not had any further bleeding She is tolerating oral intake Pt and family concerned about some dysarthria the pt has had the last few days She is having hip pain Objective Vitals Vital Signs Date Time Temp Pulse Resp B/P (MAP) Pulse Ox O2 Delivery O2 Flow Rate FiO2 11/06/17 16:01 75 11/06/17 16:01 75 19 145/65 (91) 84 11/06/17 16:00 74 11/06/17 16:00 98.2 74 20 76 11/06/17 14:00 79 11/06/17 14:00 79 20 129/67 (87) 98 11/06/17 13:00 81 26 138/69 (92) 93 11/06/17 12:00 67 11/06/17 12:00 97.9 67 13 141/63 (89) 99 11/06/17 10:00 82 11/06/17 09:00 99 29 140/65 (90) 11/06/17 09:00 99 11/06/17 08:00 105 11/06/17 08:00 97.9 105 34 142/71 (94) 11/06/17 06:00 62 11/06/17 04:00 82 11/06/17 04:00 98.8 82 23 156/67 (96) 98 11/06/17 02:59 98 11/06/17 02:00 66 11/06/17 00:00 98.6 76 22 155/64 (94) 97 11/06/17 00:00 76 11/05/17 22:00 71 11/05/17 20:00 91 11/05/17 20:00 98.6 91 34 174/75 (108) 92 11/05/17 19:19 98 11/05/17 19:00 84 11/05/17 18:27 74 11/05/17 18:22 82 11/06/17 11/06/17 11/07/17 15:00 23:00 07:00 Intake Total 100 ml Balance 100 ml IV Total 100 ml Result Diagram: 11/06/17 1611 11/06/17 0550 Other Results Laboratory Tests Test 11/04/17 20:50 11/05/17 03:52 11/05/17 08:00 11/05/17 13:45 Hemoglobin 11.9 GM/DL 11.9 GM/DL 12.0 GM/DL Hematocrit 34.1 % 34.1 % Prothrombin Time 10.6 SEC Prothromb Time International Ratio 1.0 RATIO Activated Partial Thromboplast Time 25.4 SEC Blood Urea Nitrogen 7 MG/DL Creatinine 0.82 MG/DL Random Glucose 122 MG/DL Total Protein 6.7 GM/DL Albumin 2.9 GM/DL Calcium Level 8.4 MG/DL Phosphorus Level 2.6 MG/DL Magnesium Level 2.1 MG/DL Alkaline Phosphatase 85 U/L Aspartate Amino Transf (AST/SGOT) 35 U/L Alanine Aminotransferase (ALT/SGPT) 37 U/L Total Bilirubin 2.3 MG/DL Sodium Level 135 MEQ/L Potassium Level 2.8 MEQ/L Chloride Level 98 MEQ/L Carbon Dioxide Level 27.2 MEQ/L Anion Gap 10 MEQ/L Estimat Glomerular Filtration Rate 69 ML/MIN Lactic Acid Level 1.1 mmol/L White Blood Count 7.7 TH/MM3 Red Blood Count 3.82 MIL/MM3 Mean Corpuscular Volume 89.3 FL Mean Corpuscular Hemoglobin 31.1 PG Mean Corpuscular Hemoglobin Concent 34.8 % Red Cell Distribution Width 14.3 % Platelet Count 345 TH/MM3 Mean Platelet Volume 7.2 FL Neutrophils (%) (Auto) 77.4 % Lymphocytes (%) (Auto) 6.8 % Monocytes (%) (Auto) 13.5 % Eosinophils (%) (Auto) 2.1 % Basophils (%) (Auto) 0.2 % Neutrophils # (Auto) 6.0 TH/MM3 Lymphocytes # (Auto) 0.5 TH/MM3 Monocytes # (Auto) 1.0 TH/MM3 Eosinophils # (Auto) 0.2 TH/MM3 Basophils # (Auto) 0.0 TH/MM3 CBC Comment DIFF FINAL Differential Comment Test 11/05/17 17:01 11/06/17 00:33 11/06/17 05:50 11/06/17 09:25 Potassium Level 4.0 MEQ/L 3.9 MEQ/L Hemoglobin 11.8 GM/DL 12.9 GM/DL 12.6 GM/DL White Blood Count 8.7 TH/MM3 Red Blood Count 4.07 MIL/MM3 Hematocrit 37.4 % Mean Corpuscular Volume 91.9 FL Mean Corpuscular Hemoglobin 31.7 PG Mean Corpuscular Hemoglobin Concent 34.5 % Red Cell Distribution Width 14.7 % Platelet Count 398 TH/MM3 Mean Platelet Volume 7.2 FL Test 11/06/17 15:00 11/06/17 16:11 Urine Color DARK-YELLOW Urine Turbidity CLOUDY Urine pH 8.0 Urine Specific [place] 1.021 Urine Protein 300 mg/dL Urine Glucose (UA) NEG mg/dL Urine Ketones NEG mg/dL Urine Occult Blood TRACE Urine Nitrite POS Urine Bilirubin NEG Urine Urobilinogen LESS THAN 2.0 MG/DL Urine Leukocyte Esterase LARGE Urine RBC 75 /hpf Urine WBC 140 /hpf Urine WBC Clumps FEW Urine Bacteria MOD /hpf Microscopic Urinalysis Comment CULTURE INDICATED Hemoglobin 11.3 GM/DL Imaging Last Impressions Chest X-Ray 11/04/17 0244 Signed Impressions: Service Date/Time: Saturday, November 04, 2017 02:52 - CONCLUSION: No acute disease. No significant change has occurred. Danny Ortega MD Hip and Pelvis X-Ray 11/04/17 0000 Signed Impressions: Service Date/Time: Saturday, November 04, 2017 03:32 - CONCLUSION: 1. Status post right hip prosthesis. 2. No acute fracture joint dislocation. 3. No significant change compared to prior exam. Danny Ortega MD Abdomen Ultrasound 11/04/17 0000 Signed Impressions: Service Date/Time: Saturday, November 04, 2017 16:07 - CONCLUSION: 1. Minimal fluid noted in the right upper quadrant. 2. The liver appears unremarkable. 3. Unremarkable gallbladder. 4. The common bile duct is at the upper limits of normal in size with no evidence of choledocholithiasis. Tk Zhu MD Objective Remarks General: NAD, AAOx3 Chest: CTA Cardiac: Regular Abd: +BS, soft ND/NT Ext: No edema A/P Problem List: (1) Anemia associated with acute blood loss ICD Codes: D62 - Acute posthemorrhagic anemia Plan: - Pt is a 71 y/o [place] with hypertension, dyslipidemia, history of melanoma, hx of breast cancer in 1998 s/p chemotherapy and port placement, vitamin B-12 deficiency, history of sternal fracture, osteoporosis osteoarthritis of hiatal hernia. Pt also with hx of tobacco and EtOH use but has quit for the past month. - She was recently admitted to [facility] from 10/29/17 to 11/01/17 after she underwent right NAHOMY due to AVN on 10/29/[address] Pratt. Pt was discharged on Xarelto for DVT prophylaxis - She initially presented to [facility] 11/04/17 with coffee-ground emesis - Hemoglobin initially was at 7.1 at admission. - Pt was transfused with 2 units PRBCs, 2 units FFP and KCentra. - She was started on Protonix and Octreotide gtt. - GI was consulted and pt underwent evaluation with EGD on 11/05/16 --> Severe erosive ulcerated esophagitis, hiatal hernia, gastritis, and duodenal ulcers - GI has recommended that the pt continue on Protonix BID - Protonix gtt changed to po BID on 11/06 - H/H has been stable - Pt stable for transfer out of ICU - GI has cleared the pt to resume anticoagulants, resume Xarelto 10mg po daily on 11/07 - Supportive care (2) Dysarthria ICD Codes: R47.1 - Dysarthria and anarthria Status: Acute Plan: - Pt reports some new issues with dysarthria for the last few days - Check MRI brain - Check B12, Folate, TSH/Free T4, Ammonia levels (3) HTN (hypertension) ICD Codes: I10 - Essential (primary) hypertension Status: Chronic Plan: - Pt is on Metoprolol 25mg po BID - BP relatively stable - Cont. to Monitor (4) Fracture of femoral neck, right, closed ICD Codes: S72.001A - Fracture of unspecified part of neck of right femur, initial encounter for closed fracture Status: Resolved Plan: - Pt originally had right hip closed reduction and proximal screw fixation in [address] Pratt - The right hip hardware was removed in 07/[address] Pratt - Pt had previous right NAHOMY due to AVN on 10/29/[address] Pratt - Anticoagulants on hold due to GIB - GI has cleared her to resume anticoagulants - PT (5) Breast CA ICD Codes: C50.919 - Malignant neoplasm of unspecified site of unspecified female breast Status: Resolved (6) History of tobacco abuse ICD Codes: Z87.891 - Personal history of nicotine dependence (7) History of ETOH abuse ICD Codes: Z87.898 - Personal history of other specified conditions Assessment and Plan Patient examined. Assessment and plan formulated with Catrachita Joy PA-C. I agree with the above. Problem Qualifiers (1) HTN (hypertension): Qualified Codes: I10 - Essential (primary) hypertension (2) Fracture of femoral neck, right, closed: Qualified Codes: S72.001D - Fracture of unspecified part of neck of right femur , subsequent encounter for closed fracture with routine healing (3) Breast CA: Qualified Codes: C50.911 - Malignant neoplasm of unspecified site of right female breast; Z17.1 - Estrogen receptor negative status [ER-] Catrachita Joy Nov 06, 2017 18:13 Abdulaziz Smith DO Nov 07, 2017 17:28
[2017-11-06] MEDS ORDERED: LEVOFLOXACIN 500 MG TAB PO ONE (18:30)
[2017-11-07] VITALS (18 sets, daily range): BP systolic 136–182; BP diastolic 62–79; PULSE 67–100; RESP 15–28; TEMP 97.6–98.9; O2SAT 64–100
[2017-11-07] MEDS: oxyCODONE/ACETAMINOPHEN 5 MG/325 MG TAB PO PRN ×2 (00:07→19:58)
[2017-11-07] MEDS: CHLORHEXIDINE GLUCONATE 2 % 1 PACK (2 CLOTHS) TOP SCH (06:00)
[2017-11-07] MEDS: INSULIN NovoLIN REGULAR SUPPLEMENTAL SCALE SQ SCH ×5 (06:00→23:00)
[2017-11-07 08:43] LABS: AUTOMATED NEUTROPHIL # 7.7 TH/MM3 (1.8-7.7); BASOPHIL % 0.2 % (0.0-2.0); EOSINOPHIL # 0.2 TH/MM3 (0-0.4); EOSINOPHIL % 1.9 % (0.0-4.0); HEMATOCRIT 32.5 % (35.0-46.0); HEMOGLOBIN 11.2 GM/DL (11.6-15.3); LYMPH % 8.2 % (9.0-44.0); LYMPHOCYTE # 0.8 TH/MM3 (1.0-4.8); MEAN CELL VOLUME 90.2 FL (80.0-100.0); MEAN CORPUSCULAR HGB CONC 34.4 % (32.0-36.0); MEAN PLATELET VOLUME 6.8 FL (7.0-11.0); MONO % 9.5 % (0.0-8.0); MONOCYTE # 0.9 TH/MM3 (0-0.9); NEUT % 80.2 % (16.0-70.0); PLATELET COUNT 406 TH/MM3 (150-450); RED CELL DISTRIBUTION WIDTH 14.4 % (11.6-17.2); WHITE BLOOD COUNT 9.6 TH/MM3 (4.0-11.0)
[2017-11-07 09:17] LABS: BICARBONATE 23.6 MEQ/L (21.0-32.0); CREATININE 0.92 MG/DL (0.50-1.00); MAGNESIUM 1.5 MG/DL (1.5-2.5)
[2017-11-07] MEDS: MULTIVITAMIN TAB PO SCH (09:36)
[2017-11-07] MEDS: PANTOPRAZOLE SOD 40 MG DELAYED RELEASE TAB PO SCH ×2 (09:36→19:57)
[2017-11-07] MEDS: SODIUM CHLORIDE 0.9% FLUSH 10 ML FLUSH IV FLUSH SCH ×2 (09:36→19:58)
[2017-11-07] MEDS: DOCUSATE SODIUM 50 MG/SENNA 8.6 MG TAB PO SCH ×2 (09:36→19:57)
[2017-11-07] MEDS: METOPROLOL TARTRATE 25 MG TAB PO SCH ×2 (09:36→19:57)
[2017-11-07] MEDS: RIVAROXABAN 10 MG TAB PO SCH (09:36)
[2017-11-07] MEDS: SODIUM CHLOR 0.9% 1000 ML INJ 1,000 ML IV SCH ×2 (09:37→18:09)
[2017-11-07 11:28] LABS: FOLATE 19.4 NG/ML (3.1-17.5); FREE T4 1.44 NG/DL (0.76-1.46)
--- NOTE | 2017-11-07 11:51 | RADRPT ---
EXAM DATE/TIME: 11/07/2017 11:09 [facility] COMPARISON: No previous studies available for comparison. INDICATIONS : Slurred speech. MEDICAL HISTORY : Renal failure, chronic. Hypertension Carcinoma, breast. Hiatal hernia SURGICAL HISTORY : Tonsillectomy. Right breast lumpectomy. Port placement and removal. Left wrist ENCOUNTER: Subsequent ACUITY: 4-6 days PAIN SCORE: 0/10 LOCATION: cranial TECHNIQUE: Multiplanar, multisequence MRI of the brain was performed without contrast. FINDINGS: CEREBRUM: There is diffuse atrophy present. Ventricles are mildly enlarged. There is definite prominence of the sulci WHITE MATTER: There is chronic ischemic demyelinization changes. POSTERIOR FOSSA: The cerebellum and brainstem are intact. The 4th ventricle is midline. The cerebellopontine angle is unremarkable. The cerebellar tonsils are normal in position. DIFFUSION IMAGING: There are 4 or 5 small focal areas of increased signal within the landa and white matter in the right frontal parietal lobes suggesting small stroke. At least 2 of them are gyriform are suspicious for sm all cortical strokes. I don't see any evidence of hemorrhage.. EXTRACRANIAL: The visualized portions of the orbits and paranasal sinuses are unremarkable. CONCLUSION: 4-5 small areas of increased signal on the diffusion weighted sequences suspicious for multifocal str okes in the right cerebral hemisphere. Correlate for source of emboli. No significant hemorrhage is noted. Diffuse atrophy is present. Vu Aguilar MD on November 07, 2017 at 11:46 Board Certified Radiologist. This report was verified electronically.
--- NOTE | 2017-11-07 17:39 | HHI.PR ---
Subjective Remarks Pt continues to have periods of intermittent confusion. Objective Vitals Vital Signs Date Time Temp Pulse Resp B/P (MAP) Pulse Ox O2 Delivery O2 Flow Rate FiO2 11/07/17 16:00 97.7 78 18 143/65 (91) 64 11/07/17 16:00 78 11/07/17 15:00 83 11/07/17 14:00 77 11/07/17 13:00 91 11/07/17 12:00 97.9 72 22 140/63 (88) 100 11/07/17 12:00 72 11/07/17 10:15 97 21 11/07/17 10:00 93 11/07/17 09:00 100 11/07/17 08:00 75 11/07/17 08:00 97.6 75 15 165/72 (103) 99 11/07/17 07:00 82 11/07/17 04:00 67 11/07/17 04:00 97.8 67 19 151/67 (95) 100 11/07/17 03:35 98 11/07/17 00:00 98.0 82 21 136/62 (86) 95 11/07/17 00:00 82 11/06/17 22:00 78 11/06/17 20:00 98 11/06/17 20:00 98.2 98 16 153/72 (99) 94 11/06/17 19:15 96 11/06/17 18:00 94 Result Diagram: 11/07/17 0825 11/07/17 0825 Imaging Last Impressions Brain MRI 11/07/17 0000 Signed Impressions: Service Date/Time: Tuesday, November 07, 2017 11:09 - CONCLUSION: 4-5 small areas of increased signal on the diffusion weighted sequences suspicious for multifocal strokes in the right cerebral hemisphere. Correlate for source of emboli. No significant hemorrhage is noted. Diffuse atrophy is present. Vu Aguilar MD Chest X-Ray 11/04/17 0244 Signed Impressions: Service Date/Time: Saturday, November 04, 2017 02:52 - CONCLUSION: No acute disease. No significant change has occurred. Danny Ortega MD Hip and Pelvis X-Ray 11/04/17 0000 Signed Impressions: Service Date/Time: Saturday, November 04, 2017 03:32 - CONCLUSION: 1. Status post right hip prosthesis. 2. No acute fracture joint dislocation. 3. No significant change compared to prior exam. Danny Ortega MD Abdomen Ultrasound 11/04/17 0000 Signed Impressions: Service Date/Time: Saturday, November 04, 2017 16:07 - CONCLUSION: 1. Minimal fluid noted in the right upper quadrant. 2. The liver appears unremarkable. 3. Unremarkable gallbladder. 4. The common bile duct is at the upper limits of normal in size with no evidence of choledocholithiasis. Tk Zhu MD Objective Remarks General: NAD, AAOx3 but with periods of confusion. Chest: CTA Cardiac: Regular Abd: +BS, soft ND/NT Ext: No edema A/P Problem List: (1) Cerebrovascular accident (CVA) involving right cerebral hemisphere ICD Codes: I63.9 - Cerebral infarction, unspecified Status: Acute Plan: - pt's sister expressed concern about confusion/pt NOT at her usual baseline (11/06) - MRI brain (11/07) --> 5 - 5 samll areas of increased signal intensity c/w multifocal CVA - obtain echocardiogram - obtain carotid US - continue to observe of telemetry - NSR (11/07) - obtain holter monitor - request Neurology consult - pt had revision of hip surgery and then discharged to SNF of xarelto - pt returned to [place] with GIB - xarelto resumed 11/07 - continue xarelto for now pending Neurology review of the case - supportive care (2) Anemia associated with acute blood loss ICD Codes: D62 - Acute posthemorrhagic anemia Plan: - Pt is a 71 y/o WF with hypertension, dyslipidemia, history of melanoma, hx of breast cancer in 1998 s/p chemotherapy and port placement, vitamin B-12 deficiency, history of sternal fracture, osteoporosis osteoarthritis of hiatal hernia. Pt also with hx of tobacco and EtOH use but has quit for the past month. - She was recently admitted to [facility] from 10/29/17 to 11/01/17 after she underwent right NAHOMY due to AVN on 10/29/[address] Pratt. Pt was discharged on Xarelto for DVT prophylaxis - She initially presented to [facility] 11/04/17 with coffee-ground emesis - Hemoglobin initially was at 7.1 at admission. - Pt was transfused with 2 units PRBCs, 2 units FFP and KCentra. - She was started on Protonix and Octreotide gtt. - GI was consulted and pt underwent evaluation with EGD on 11/05/16 --> Severe erosive ulcerated esophagitis, hiatal hernia, gastritis, and duodenal ulcers - GI has recommended that the pt continue on Protonix BID - Protonix gtt changed to po BID on 11/06 - H/H has been stable - Pt stable for transfer out of ICU - GI has cleared the pt to resume anticoagulants, resume Xarelto 10mg po daily on 11/07 - Supportive care (3) Dysarthria ICD Codes: R47.1 - Dysarthria and anarthria Status: Acute Plan: - Pt reports some new issues with dysarthria for the last few days - Check MRI brain - Check B12, Folate, TSH/Free T4, Ammonia levels (4) HTN (hypertension) ICD Codes: I10 - Essential (primary) hypertension Status: Chronic Plan: - Pt is on Metoprolol 25mg po BID - BP relatively stable - Cont. to Monitor (5) Fracture of femoral neck, right, closed ICD Codes: S72.001A - Fracture of unspecified part of neck of right femur, initial encounter for closed fracture Status: Resolved Plan: - Pt originally had right hip closed reduction and proximal screw fixation [place] [address] Pratt - The right hip hardware was removed in 07/[address] Pratt - Pt had previous right NAHOMY due to AVN on 10/29/[address] Pratt - Anticoagulants on hold due to GIB - GI has cleared her to resume anticoagulants - PT (6) Breast CA ICD Codes: C50.919 - Malignant neoplasm of unspecified site of unspecified female breast Status: Resolved (7) History of tobacco abuse ICD Codes: Z87.891 - Personal history of nicotine dependence (8) History of ETOH abuse ICD Codes: Z87.898 - Personal history of other specified conditions Problem Qualifiers (1) HTN (hypertension): Qualified Codes: I10 - Essential (primary) hypertension (2) Fracture of femoral neck, right, closed: Qualified Codes: S72.001D - Fracture of unspecified part of neck of right femur , subsequent encounter for closed fracture with routine healing (3) Breast CA: Qualified Codes: C50.911 - Malignant neoplasm of unspecified site of right female breast; Z17.1 - Estrogen receptor negative status [ER-] Abdulaziz Smith DO Nov 07, 2017 17:39
--- NOTE | 2017-11-07 20:11 | RADRPT ---
EXAM DATE/TIME: 11/07/2017 19:24 [facility] COMPARISON: No previous studies available for comparison. INDICATIONS : Cerebrovascular accident. MEDICAL HISTORY : Hypercholesterolemia. Hypertension. Arthritis. Osteoporosis. Right hip fracture. Right breast cance r. Skin cancer. Chemotherapy. Radiation therapy. Blood transfusion. Measles. SURGICAL HISTORY : Tonsillectomy. Right breast lumpectomy. Port placement and removal. Left wrist ORIF. Right hip re placement. ENCOUNTER: Initial ACUITY: 1 day PAIN SCORE: 0/10 LOCATION: Bilateral neck PEAK SYSTOLIC VELOCITIES (cm/sec): ICA/CCA RATIO: Right: 1.4 Left: 1.9 ICA: Right: 158 Left: 184 CCA: Right: 114 Left: 97 ECA: Right: 193 Left: 124 VERTEBRAL: Right: 87 antegrade Left: 84 antegrade Elevated flow velocities and ICA/CCA ratios have been found to correlate with increased degrees of vessel stenosis, calculated as percentage of diameter relative to a normal segment of distal ICA/CCA FINDINGS: RIGHT CAROTID: Heavily calcified atherosclerotic plaque is seen involving the carotid bulb and proximal ICA. The mari cified nature generates shadowing limiting grayscale analysis. The waveforms are within normal limits . LEFT CAROTID: Heavily calcified atherosclerotic plaque is seen involving the carotid bulb and proximal ICA. The mari cified nature generates shadowing limiting grayscale analysis. The waveforms are within normal limits . VERTEBRAL ARTERIES: Antegrade flow is seen in both vertebral arteries. MISCELLANEOUS: None. CONCLUSION: 1. Heavily calcified atheromatous plaque involving both carotid arteries. Velocity evaluation suggest s a 50-69% stenosis bilaterally. 2. Antegrade flow involving both vertebral arteries. Ashutosh Lucero Jr., MD on November 07, 2017 at 20:03 Board Certified Radiologist. This report was verified electronically.
[2017-11-08] VITALS (11 sets, daily range): BP systolic 103–162; BP diastolic 57–78; PULSE 72–107; RESP 16–22; TEMP 98–99.1; O2SAT 96–99
[2017-11-08] MEDS: oxyCODONE/ACETAMINOPHEN 5 MG/325 MG TAB PO PRN ×5 (01:00→22:39)
[2017-11-08] MEDS: CHLORHEXIDINE GLUCONATE 2 % 1 PACK (2 CLOTHS) TOP SCH (04:00)
[2017-11-08] MEDS: INSULIN NovoLIN REGULAR SUPPLEMENTAL SCALE SQ SCH ×2 (05:39→12:00)
[2017-11-08] MEDS: hydrALAZINE HCL 20 MG/ML VIAL IV PUSH PRN (05:41)
[2017-11-08 08:11] LABS: HEMATOCRIT 27.4 % (35.0-46.0); HEMOGLOBIN 9.3 GM/DL (11.6-15.3); MEAN CORPUSCULAR HGB CONC 34.1 % (32.0-36.0); PLATELET COUNT 337 TH/MM3 (150-450); RED BLOOD COUNT 3.01 MIL/MM3 (4.00-5.30); RED CELL DISTRIBUTION WIDTH 14.6 % (11.6-17.2); WHITE BLOOD COUNT 6.9 TH/MM3 (4.0-11.0)
[2017-11-08] MEDS: MULTIVITAMIN TAB PO SCH (08:38)
[2017-11-08 08:39] LABS: CHOLESTEROL/ HDL RATIO 3.33 RATIO; HDL CHOLESTEROL 26.1 MG/DL (40.0-60.0)
[2017-11-08] MEDS: METOPROLOL TARTRATE 25 MG TAB PO SCH ×2 (08:39→20:29)
[2017-11-08] MEDS: RIVAROXABAN 10 MG TAB PO SCH (08:39)
[2017-11-08] MEDS: DOCUSATE SODIUM 50 MG/SENNA 8.6 MG TAB PO SCH ×2 (08:39→20:29)
[2017-11-08] MEDS: PANTOPRAZOLE SOD 40 MG DELAYED RELEASE TAB PO SCH ×2 (08:39→20:29)
[2017-11-08] MEDS: SODIUM CHLORIDE 0.9% FLUSH 10 ML FLUSH IV FLUSH SCH ×2 (08:41→20:29)
[2017-11-08] MEDS: SODIUM CHLOR 0.9% 1000 ML INJ 1,000 ML IV SCH ×3 (08:43→20:30)
[2017-11-08] MEDS: LEVOFLOXACIN 500 MG PREMIX INJ 100 ML IV SCH (09:28)
--- NOTE | 2017-11-08 13:13 | HHI.PR ---
Subjective Remarks Offers no complaints at this time patient having periods of confusion Objective Vitals Vital Signs Date Time Temp Pulse Resp B/P (MAP) Pulse Ox O2 Delivery O2 Flow Rate FiO2 11/08/17 07:45 91 11/08/17 04:00 98.4 93 22 162/78 (106) 97 11/08/17 04:00 72 11/08/17 00:00 90 11/08/17 00:00 99.1 88 20 148/65 (92) 96 11/07/17 21:54 78 11/07/17 20:50 98.7 98 20 150/77 (101) 95 11/07/17 20:00 98.9 99 28 182/79 (113) 98 11/07/17 20:00 99 11/07/17 18:00 100 11/07/17 17:00 91 11/07/17 16:00 97.7 78 18 143/65 (91) 64 11/07/17 16:00 78 11/07/17 15:00 83 11/07/17 14:00 77 Result Diagram: 11/08/17 0642 11/07/17 0825 Other Results Laboratory Tests Test 11/05/17 13:45 11/05/17 17:01 11/06/17 00:33 11/06/17 05:50 Hemoglobin 12.0 GM/DL 11.8 GM/DL 12.9 GM/DL Potassium Level 4.0 MEQ/L 3.9 MEQ/L White Blood Count 8.7 TH/MM3 Red Blood Count 4.07 MIL/MM3 Hematocrit 37.4 % Mean Corpuscular Volume 91.9 FL Mean Corpuscular Hemoglobin 31.7 PG Mean Corpuscular Hemoglobin Concent 34.5 % Red Cell Distribution Width 14.7 % Platelet Count 398 TH/MM3 Mean Platelet Volume 7.2 FL Test 11/06/17 09:25 11/06/17 15:00 11/06/17 16:11 11/07/17 08:25 Hemoglobin 12.6 GM/DL 11.3 GM/DL 11.2 GM/DL Urine Color DARK-YELLOW Urine Turbidity CLOUDY Urine pH 8.0 Urine Specific [place] 1.021 Urine Protein 300 mg/dL Urine Glucose (UA) NEG mg/dL Urine Ketones NEG mg/dL Urine Occult Blood TRACE Urine Nitrite POS Urine Bilirubin NEG Urine Urobilinogen LESS THAN 2.0 MG/DL Urine Leukocyte Esterase LARGE Urine RBC 75 /hpf Urine WBC 140 /hpf Urine WBC Clumps FEW Urine Bacteria MOD /hpf Microscopic Urinalysis Comment CULTURE INDICATED White Blood Count 9.6 TH/MM3 Red Blood Count 3.60 MIL/MM3 Hematocrit 32.5 % Mean Corpuscular Volume 90.2 FL Mean Corpuscular Hemoglobin 31.0 PG Mean Corpuscular Hemoglobin Concent 34.4 % Red Cell Distribution Width 14.4 % Platelet Count 406 TH/MM3 Mean Platelet Volume 6.8 FL Neutrophils (%) (Auto) 80.2 % Lymphocytes (%) (Auto) 8.2 % Monocytes (%) (Auto) 9.5 % Eosinophils (%) (Auto) 1.9 % Basophils (%) (Auto) 0.2 % Neutrophils # (Auto) 7.7 TH/MM3 Lymphocytes # (Auto) 0.8 TH/MM3 Monocytes # (Auto) 0.9 TH/MM3 Eosinophils # (Auto) 0.2 TH/MM3 Basophils # (Auto) 0.0 TH/MM3 CBC Comment DIFF FINAL Differential Comment Blood Urea Nitrogen 15 MG/DL Creatinine 0.92 MG/DL Random Glucose 92 MG/DL Calcium Level 8.0 MG/DL Magnesium Level 1.5 MG/DL Sodium Level 138 MEQ/L Potassium Level 3.7 MEQ/L Chloride Level 107 MEQ/L Carbon Dioxide Level 23.6 MEQ/L Anion Gap 7 MEQ/L Estimat Glomerular Filtration Rate 60 ML/MIN Ammonia 27 MCMOL/L Vitamin B12 Level GREATER THAN 2000 PG/ML Folate 19.4 NG/ML Free Thyroxine 1.44 NG/DL Thyroid Stimulating Hormone 3rd Gen 3.430 uIU/ML Test 11/08/17 06:42 White Blood Count 6.9 TH/MM3 Red Blood Count 3.01 MIL/MM3 Hemoglobin 9.3 GM/DL Hematocrit 27.4 % Mean Corpuscular Volume 91.0 FL Mean Corpuscular Hemoglobin 31.0 PG Mean Corpuscular Hemoglobin Concent 34.1 % Red Cell Distribution Width 14.6 % Platelet Count 337 TH/MM3 Mean Platelet Volume 7.0 FL Triglycerides Level 85 MG/DL Cholesterol Level 87 MG/DL LDL Cholesterol 44 MG/DL HDL Cholesterol 26.1 MG/DL Cholesterol/HDL Ratio 3.33 RATIO Imaging Last Impressions Brain MRI 11/07/17 0000 Signed Impressions: Service Date/Time: Tuesday, November 07, 2017 11:09 - CONCLUSION: 4-5 small areas of increased signal on the diffusion weighted sequences suspicious for multifocal strokes in the right cerebral hemisphere. Correlate for source of emboli. No significant hemorrhage is noted. Diffuse atrophy is present. Vu Aguilar MD Chest X-Ray 11/04/17 0244 Signed Impressions: Service Date/Time: Saturday, November 04, 2017 02:52 - CONCLUSION: No acute disease. No significant change has occurred. Danny Ortega MD Hip and Pelvis X-Ray 11/04/17 0000 Signed Impressions: Service Date/Time: Saturday, November 04, 2017 03:32 - CONCLUSION: 1. Status post right hip prosthesis. 2. No acute fracture joint dislocation. 3. No significant change compared to prior exam. Danny Ortega MD Abdomen Ultrasound 11/04/17 0000 Signed Impressions: Service Date/Time: Saturday, November 04, 2017 16:07 - CONCLUSION: 1. Minimal fluid noted in the right upper quadrant. 2. The liver appears unremarkable. 3. Unremarkable gallbladder. 4. The common bile duct is at the upper limits of normal in size with no evidence of choledocholithiasis. Tk Zhu MD Objective Remarks General: NAD, AAOx3 but with periods of confusion. Chest: CTA Cardiac: Regular Abd: +BS, soft ND/NT Ext: No edema A/P Problem List: (1) Cerebrovascular accident (CVA) involving right cerebral hemisphere ICD Codes: I63.9 - Cerebral infarction, unspecified Status: Acute Plan: - pt's sister expressed concern about confusion/pt NOT at her usual baseline (11/06) - MRI brain (11/07) --> 4- 5 small areas of increased signal intensity c/w multifocal CVA - echocardiogram pending - carotid US heavily calcified atheromatous plaque involving both carotid arteries. Velocity evidence suggesting a 50-69% stenosis bilaterally antegrade flow involving both vertebral arteries - CTA neck ordered - consult placed to vascular surgery - continue to observe of telemetry - NSR (11/07) - obtain holter monitor - request Neurology consult, Dr. Smith discussed case with Dr. Awan - pt had revision of hip surgery and then discharged to SNF of xarelto - pt returned to [place] with GIB - xarelto resumed 11/07 - continue xarelto for now pending Neurology review of the case - supportive care (2) Anemia associated with acute blood loss ICD Codes: D62 - Acute posthemorrhagic anemia Plan: - Pt is a 71 y/o WF with hypertension, dyslipidemia, history of melanoma, hx of breast cancer in 1998 s/p chemotherapy and port placement, vitamin B-12 deficiency, history of sternal fracture, osteoporosis osteoarthritis of hiatal hernia. Pt also with hx of tobacco and EtOH use but has quit for the past month. - She was recently admitted to [facility] from 10/29/17 to 11/01/17 after she underwent right NAHOMY due to AVN on 10/29/[address] Pratt. Pt was discharged on Xarelto for DVT prophylaxis - She initially presented to [facility] 11/04/17 with coffee-ground emesis - Hemoglobin initially was at 7.1 at admission. - Pt was transfused with 2 units PRBCs, 2 units FFP and KCentra. - She was started on Protonix and Octreotide gtt. - GI was consulted and pt underwent evaluation with EGD on 11/05/16 --> Severe erosive ulcerated esophagitis, hiatal hernia, gastritis, and duodenal ulcers - GI has recommended that the pt continue on Protonix BID - Protonix gtt changed to po BID on 11/06 - H/H has been stable - Pt stable for transfer out of ICU - GI has cleared the pt to resume anticoagulants, resume Xarelto 10mg po daily on 11/07 - Hgb 11.3 (11/07), 9.3 (11/08) recheck for 1300 11/08 pending - Supportive care (3) Dysarthria ICD Codes: R47.1 - Dysarthria and anarthria Status: Acute Plan: - Pt reports some new issues with dysarthria for the last few days - MRI brain (11/07) consistent with multifocal strokes - B12 >2000, Folate 19.4, TSH 3.430/Free T4 1.44, Ammonia level 27 (4) HTN (hypertension) ICD Codes: I10 - Essential (primary) hypertension Status: Chronic Plan: - Pt is on Metoprolol 25mg po BID - BP relatively stable - Cont. to Monitor (5) Fracture of femoral neck, right, closed ICD Codes: S72.001A - Fracture of unspecified part of neck of right femur, initial encounter for closed fracture Status: Resolved Plan: - Pt originally had right hip closed reduction and proximal screw fixation [place] [address] Pratt - The right hip hardware was removed in 07/[address] Pratt - Pt had previous right NAHOMY due to AVN on 10/29/[address] Pratt - Anticoagulants on hold due to GIB - GI has cleared her to resume anticoagulants - PT (6) Breast CA ICD Codes: C50.919 - Malignant neoplasm of unspecified site of unspecified female breast Status: Resolved (7) History of tobacco abuse ICD Codes: Z87.891 - Personal history of nicotine dependence (8) History of ETOH abuse ICD Codes: Z87.898 - Personal history of other specified conditions (9) UTI (urinary tract infection) ICD Codes: N39.0 - Urinary tract infection, site not specified Plan: Urine culture revealing Proteus Mirabilis and Gram neg kathi continue Levaquin IV Assessment and Plan Patient examined. Assessment and plan formulated with Daysi SOTELO-Liana. I agree with the above. - Case d/w Neurology, Dr. Alba (11/08) - Continue Xarelto, MRI shows small infarction - Echoardiogram (11/08) --> EF 65%, no thrombus - CTA carotids pending - holter pending - anticipate d/c back to SNF in next 1-3 days Problem Qualifiers (1) HTN (hypertension): Qualified Codes: I10 - Essential (primary) hypertension (2) Fracture of femoral neck, right, closed: Qualified Codes: S72.001D - Fracture of unspecified part of neck of right femur , subsequent encounter for closed fracture with routine healing (3) Breast CA: Qualified Codes: C50.911 - Malignant neoplasm of unspecified site of right female breast; Z17.1 - Estrogen receptor negative status [ER-] Daysi Aceves Nov 08, 2017 13:13 Abdulaziz Smith DO Nov 08, 2017 23:45
[2017-11-08 14:26] LABS: HEMATOCRIT 33.7 % (35.0-46.0); HEMOGLOBIN 11.2 GM/DL (11.6-15.3); MEAN CELL VOLUME 91.4 FL (80.0-100.0); MEAN CORPUSCULAR HEMOGLOBIN 30.3 PG (27.0-34.0); MEAN CORPUSCULAR HGB CONC 33.2 % (32.0-36.0); PLATELET COUNT 462 TH/MM3 (150-450); RED BLOOD COUNT 3.69 MIL/MM3 (4.00-5.30); RED CELL DISTRIBUTION WIDTH 14.6 % (11.6-17.2); WHITE BLOOD COUNT 11.2 TH/MM3 (4.0-11.0)
--- NOTE | 2017-11-08 16:33 | ECHRPT ---
Indication: CVA/TIA CONCLUSIONS Normal left ventricular size. Wall thickness is normal. The pulmonary valve is not well visualized. BP: 182 / 79 HR: 100 Rhythm: MEASUREMENTS (Male / Female) Normal Values Technical Quality:Technically difficult study 2D ECHO LV Diastolic Diameter PLAX 3.3 cm 4.2 - 5.9 / 3.9 - 5.3 cm LV Systolic Diameter PLAX 2.2 cm IVS Diastolic Thickness 0.7 cm 0.6 - 1.0 / 0.6 - 0.9 cm LVPW Diastolic Thickness 0.7 cm 0.6 - 1.0 / 0.6 - 0.9 cm LV Relative Wall Thickness 0.4 LA Systolic Diameter LX 3.2 cm 3.0 - 4.0 / 2.7 - 3.8 cm DOPPLER LVOT Peak Velocity 130.0 cm/s LVOT Peak Gradient 6.8 mmHg Mitral E Point Velocity 73.5 cm/s Mitral A Point Velocity 81.4 cm/s Mitral E to A Ratio 0.9 TR Peak Velocity 252.0 cm/s TR Peak Gradient 25.4 mmHg FINDINGS LEFT VENTRICLE Normal left ventricular size. Wall thickness is normal. The left ventricular systolic function is normal with an estimated ejection fraction in the range of 60-65%. RIGHT VENTRICLE Normal right ventricular size and systolic function. LEFT ATRIUM The left atrial size is normal. RIGHT ATRIUM The right atrial size is normal. ATRIAL SEPTUM Normal atrial septal thickness without atrial level shunting by limited color doppler interrogation. AORTA The aortic root and proximal ascending aorta are normal in size on limited imaging. MITRAL VALVE Structurally normal mitral valve. No mitral valve stenosis or regurgitation. AORTIC VALVE Trileaflet aortic valve. No aortic valve stenosis or regurgitation. TRICUSPID VALVE Structurally normal tricuspid valve. No tricuspid valve stenosis or regurgitation. PULMONARY VALVE The pulmonary valve is not well visualized. VESSELS The inferior vena cava is normal in size. PERICARDIUM No pericardial effusion. Griffin Rocha MD (Electronically Signed) Final Date:08 November 2017 16:31
--- NOTE | 2017-11-08 18:39 | PD.CAR.PN ---
CVT Progress Note Subjective/Hospital Course: Patient seen Full consult dictated Thanks J Objective: Vital Signs Date Time Temp Pulse Resp B/P (MAP) Pulse Ox O2 Delivery O2 Flow Rate FiO2 11/08/17 16:00 98.0 97 18 122/57 (78) 99 11/08/17 15:50 90 11/08/17 12:05 84 11/08/17 12:00 98.1 85 16 103/59 (74) 98 11/08/17 08:00 98.2 107 18 147/65 (92) 96 11/08/17 07:45 91 11/08/17 04:00 98.4 93 22 162/78 (106) 97 11/08/17 04:00 72 11/08/17 00:00 90 11/08/17 00:00 99.1 88 20 148/65 (92) 96 11/07/17 21:54 78 11/07/17 20:50 98.7 98 20 150/77 (101) 95 11/07/17 20:00 98.9 99 28 182/79 (113) 98 11/07/17 20:00 99 Labs: Laboratory Tests Test 11/08/17 06:42 11/08/17 14:10 White Blood Count 6.9 TH/MM3 (4.0-11.0) 11.2 TH/MM3 (4.0-11.0) Red Blood Count 3.01 MIL/MM3 (4.00-5.30) 3.69 MIL/MM3 (4.00-5.30) Hemoglobin 9.3 GM/DL (11.6-15.3) 11.2 GM/DL (11.6-15.3) Hematocrit 27.4 % (35.0-46.0) 33.7 % (35.0-46.0) Mean Corpuscular Volume 91.0 FL (80.0-100.0) 91.4 FL (80.0-100.0) Mean Corpuscular Hemoglobin 31.0 PG (27.0-34.0) 30.3 PG (27.0-34.0) Mean Corpuscular Hemoglobin Concent 34.1 % (32.0-36.0) 33.2 % (32.0-36.0) Red Cell Distribution Width 14.6 % (11.6-17.2) 14.6 % (11.6-17.2) Platelet Count 337 TH/MM3 (150-450) 462 TH/MM3 (150-450) Mean Platelet Volume 7.0 FL (7.0-11.0) 7.0 FL (7.0-11.0) Triglycerides Level 85 MG/DL (42-150) Cholesterol Level 87 MG/DL (120-200) LDL Cholesterol 44 MG/DL (0-99) HDL Cholesterol 26.1 MG/DL (40.0-60.0) Cholesterol/HDL Ratio 3.33 RATIO Result Diagram: 11/08/17 1410 11/07/17 0825 Sarkis Bates MD Nov 08, 2017 18:39
[2017-11-09] VITALS (7 sets, daily range): BP systolic 135–175; BP diastolic 61–93; PULSE 72–96; RESP 16–18; TEMP 98.4–98.9; O2SAT 95–97
[2017-11-09] MEDS ORDERED: IOHEXOL 350 MG/ML 10 ML VIAL (for RAD DIAG) IVCONTRAST ONE (00:22)
--- NOTE | 2017-11-09 01:04 | RADRPT ---
EXAM DATE/TIME: 11/08/2017 23:49 [facility] COMPARISON: CT CERVICAL SPINE W/O CONTRAST W 3D RECON, January 12, 2011, 2:23. INDICATIONS : Abnormal ultrasound. Evaluate stenosis. IV CONTRAST: 75 cc Omnipaque 350 (iohexol) IV RADIATION DOSE: 9.96 CTDIvol (mGy) MEDICAL HISTORY : Hypercholesterolemia. Hypertension. Arthritis. Osteoporosis. Right hip fracture. SURGICAL HISTORY : Tonsillectomy. Right breast lumpectomy. Port placement and removal. Left wrist ENCOUNTER: Initial ACUITY: 1 day PAIN SCALE: 0/10 LOCATION: neck Elevated flow velocities and ICA/CCA ratios have been found to correlate with increased degrees of vessel stenosis, calculated as percentage of diameter relative to a normal segment of distal ICA/CCA. TECHNIQUE: Volumetric scanning was performed using a multirow detector CT scanner. The data was post processed with a variety of visualization algorithms including full-volume maximum intensity projection, multip lanar sliding thin-slab reformation, curved-planar reformation, and surface-rendering techniques. Us ing automated exposure control and adjustment of the mA and/or kV according to patient size, radiatio n dose was kept as low as reasonably achievable to obtain optimal diagnostic quality images. DICOM f ormat image data is available electronically for review and comparison. FINDINGS: AORTIC ARCH: Three-vessel arch anatomy. Mild calcified plaque at the origin of the right brachiocephalic with resu ltant less than 10% stenosis. Nearly concentric bulky plaque at the origin of the left subclavian wit h resultant approximate 50% stenosis. RIGHT CAROTID: The common carotid artery is intact. Eccentric mixed plaque extending from the distal carotid bulb to the origin of the internal carotid artery with resultant approximate 60% stenosis. Tandem approximat brody 50% stenosis of the proximal internal carotid artery secondary to eccentric calcified plaque. Int ernal carotid artery is otherwise patent to the skull base. Severe stenosis of the external carotid o rigin. LEFT CAROTID: The common carotid artery is intact. Bulky mixed predominantly calcified plaque extending from the di stal carotid bulb to the origin of the internal carotid artery. This results in approximately 60% christina nosis. Internal carotid artery is otherwise patent to the skull base. Mild stenosis of the external c arotid origin. VERTEBRALS: Asymmetric vertebral arteries with dominant left vertebral artery. No significant flow-limiting steno tic lesions are seen. Nonvascular findings: Right apical scarring with mild traction bronchiectasis. No significant cervical soft tissue mass or adenopathy. CONCLUSION: 1. CTA examination is concordant with ultrasound exam. 2. 50% ostial left subclavian artery stenosis. 3. Tandem 50-60% stenoses of the proximal right internal carotid artery secondary to mixed predominan tly calcified plaque. 4. Approximate 60% stenosis of the left internal carotid artery origin secondary to mixed predominant ly calcified plaque. 5. Severe right external carotid artery origin stenosis. 1. Denilson Tran MD on November 09, 2017 at 0:52 Board Certified Radiologist. This report was verified electronically.
[2017-11-09] MEDS: oxyCODONE/ACETAMINOPHEN 5 MG/325 MG TAB PO PRN ×4 (02:46→17:36)
[2017-11-09] MEDS: CHLORHEXIDINE GLUCONATE 2 % 1 PACK (2 CLOTHS) TOP SCH (04:00)
--- NOTE | 2017-11-09 07:13 | MB ---
cc: SARKIS BATES MD DATE OF CONSULTATION 11/08/2017 CONSULTING PHYSICIAN Sarkis Bates MD, vascular surgery REASON FOR CONSULTATION Right internal carotid artery stenosis, right hemispheric stroke, GI bleeding, hypertension, duodenal ulcers. HISTORY OF PRESENT DISEASE This 71-year-old female presents to the hospital with coffee-ground emesis and some fresh blood. The patient was on Xarelto after a recent total hip replacement in March of 2017. In the process of workup, the patient is found to be somewhat soft spoken and confused and a CT scan reveals several right frontoparietal strokes, hence the consultation. PAST MEDICAL HISTORY Includes: 1. Hypertension 2. Dyslipidemia 3. B12 deficiency 4. Osteoporosis 5. Gastroesophageal reflux disease 6. Above-noted avascular necrosis of the hip. PAST SURGICAL HISTORY Includes: 1. Melanoma removal 2. Breast cancers in 99 status post chemotherapy and port placement at that time. 3. Left wrist ORIF. 4. Right total hip arthroplasty on April 07 with another one on 11/08 due to the traumatic fall and vascular necrosis of the right femoral head. MEDICATIONS Medications are multiple and include Xarelto. SOCIAL HISTORY The patient quit smoking one month ago and smoked about a pack a day. Drinks socially. PHYSICAL EXAM This is a 71-year-old female appearing older than her actual age looking very frail. HEAD, EYES, EARS, NOSE, AND THROAT: Normocephalic. No trauma to the head. Pupils are equally reactive. Extraocular muscles are intact. NECK: Supple, bilateral carotid pulses and bilateral bruits. CHEST: Bilateral breath sounds decreased over both lung ren consistent with a moderate degree of COPD. The patient has pulmonary cachexia noticeable by loss of chest wall musculature and accessory breathing. HEART: Regular rhythm. ABDOMEN: Soft. Active bowel sounds. No rebound or guarding. No masses. EXTREMITIES: The patient has bilateral palpable femoral pulses, dopplerable popliteal pulses and then dopplerable posterior tibial pulses. Dorsalis pedis is palpable. NEUROLOGIC: Actually the patient is intact. She has no lateralization. Normal muscle strength, normal deep tendon reflexes. IMPRESSION AND RECOMMENDATIONS I reviewed laboratory diagnostic procedures. This lady had an upper GI bleed and was diagnosed with shallow duodenal ulcers and gastritis and placed on appropriate medication. Of course, Xarelto has to be removed at this time. The ultrasound of the carotids reveals a very ugly looking right internal carotid artery stenosis probably in the 80% range with some irregular mensah, however, the velocities are not high, they are about 150-160 mm per second, so chances are the patient has probably slightly lower cardiac output to making the velocities a little lower. At this point, the patient is a CTA with a runoff which is going to show exactly the degree of narrowing of the carotid. She should not have surgery right now. The old dictum was to wait about six to eight weeks, however, this has been abandoned since because a lot of patient's would show up with a recurrent stroke and it was over, therefore right now, the recommendation is to wait about two to three weeks and then go ahead with surgery. The patient does have ischemic strokes and I do not know the exact age of these, but nonetheless, it will give her some time to recovery. In addition, she had a GI bleed and during the surgery will need to be heparinized so it would not be a very smart thing to heparinize the patient now and have her start to bleed on the table while doing a carotid, therefore the patient will be discharged. She will follow up with my office and then I will schedule her for a right carotid endarterectomy on an elective basis all things equal. Thank you very much for your referral. Critical care time 40 minutes. Sarkis GUTIERREZ /6:30 PM /6:41 AM
[2017-11-09] MEDS: SODIUM CHLOR 0.9% 1000 ML INJ 1,000 ML IV SCH (07:27)
--- NOTE | 2017-11-09 08:32 | MB ---
cc: ALISHA FLANNERY MD DATE OF CONSULTATION 11/08/2017 REASON FOR CONSULTATION Right hemispheric stroke. HISTORY OF PRESENT ILLNESS Ms. Whitaker is a 71-year-old female with past medical history of hypertension, hyperlipidemia, melanoma, breast cancer 1998 status post chemotherapy and port placement, vitamin B12 deficiency, sternal fracture, osteoporosis, who presented initially on 11/04/2017 because of coffee-ground emesis. The patient is on rivaroxaban for a recent right total hip replacement. She is being followed up by internal medicine and GI. As per the attending physician the patient's sister noticed some change in mentation and intermittent confusion thus an MRI brain was ordered that showed multifocal stroke in the right hemisphere. Neurology was consulted for evaluation and recommendation of whether to continue the anticoagulation or not. REVIEW OF SYSTEMS A 12-point review of systems is negative except for what is stated in the HPI. PAST MEDICAL HISTORY 1. Vitamin-B12 deficiency. 2. Peripheral neuropathy. 3. Osteoporosis. 4. Osteoarthritis. 5. Melanoma. 6. Hypertension. 7. Hyperlipidemia. 8. Sternal fracture. 9. Hiatal hernia. PAST SURGICAL HISTORY 1. T&A. 2. Right breast lumpectomy, node biopsy 1998. 3. Port-A-Cath placement left distal radius. 4. Right total hip arthroplasty in March 2017, vascular necrosis of right femoral head. MEDICATIONS 1. Rivaroxaban/Xarelto. 2. Metoprolol. 3. Tramadol. 4. Megestrol. 5. Lipitor. FAMILY HISTORY Father with COPD, mother with osteoarthritis, both . SOCIAL HISTORY 69-lphx-sdhe tobacco use, quit a month ago. 2-3 alcohol beverages nightly, quit a month ago. Denies illicit drug abuse. ALLERGIES 1. PENICILLIN-G. 2. SULFA. PHYSICAL EXAMINATION GENERAL: Awake, alert, good historian, occasional confusion, pale. HEENT: Atraumatic, normocephalic. Intact hearing. Intact vision. NECK: Supple. No signs of meningeal irritation. HEART: Regular rate and rhythm. LUNGS: Clear to auscultation. No wheezes. ABDOMEN: Soft. No tenderness. EXTREMITIES: No edema. No cyanosis. NEUROLOGIC: Awake, alert, oriented to time, person and place. Subtle dysarthria. Upper and lower extremities 5/5. Normal movement. Normal tone. Intact sensation throughout. Reflexes 2+ bilateral and symmetrical. Plantars bilateral downgoing. Cranial nerves II through XII are grossly intact. PSYCHIATRIC: Cooperative. Normal mood and behavior. DIAGNOSTIC IMAGING - Brain MRI without contrast revealed 4-5 small areas of increased signal on the diffusion weighted sequences suspicious for multifocal strokes in the right cerebral hemisphere. Correlate for source of emboli. No significant hemorrhage is noted. Diffuse atrophy is present. - Carotid ultrasound: Heavily calcified atheromatous plaque involving both carotid arteries. Velocity evaluation suggests 50-69% stenosis bilaterally. Antegrade flow involving both vertebral arteries. DIAGNOSTIC IMPRESSION 1. Acute ischemic stroke, right hemisphere. 2. Anemia with blood loss. 3. Hypertension. 4. Right femoral neck fracture. ASSESSMENT AND PLAN 1. Neuro-checks q.4 hourly. 2. Echocardiogram. 3. Consult vascular surgery for the carotid stenosis. 4. CTA neck. 5. Telemetry. 6. May need Holter monitor. 7. Continue Xarelto as there is evidence that when the infarcted area volume is not more than one-third of the MCA territory there is less risk of hemorrhagic conversion. This was the attending physician's question, whether to continue the anticoagulation or not. 8. Fall precautions. 9. GI prophylaxis. Thank you for the opportunity to participate in the care of your patient. MD VERONICA Winkler/KARINA /10:45 PM /7:58 AM MARYLOU
[2017-11-09] MEDS: SODIUM CHLORIDE 0.9% FLUSH 10 ML FLUSH IV FLUSH SCH ×2 (08:39→20:24)
[2017-11-09] MEDS: RIVAROXABAN 10 MG TAB PO SCH (08:40)
[2017-11-09] MEDS: PANTOPRAZOLE SOD 40 MG DELAYED RELEASE TAB PO SCH ×2 (08:40→20:14)
[2017-11-09] MEDS: LEVOFLOXACIN 500 MG PREMIX INJ 100 ML IV SCH (08:40)
[2017-11-09] MEDS: MULTIVITAMIN TAB PO SCH (08:41)
[2017-11-09] MEDS: DOCUSATE SODIUM 50 MG/SENNA 8.6 MG TAB PO SCH ×2 (08:41→20:14)
[2017-11-09] MEDS: METOPROLOL TARTRATE 25 MG TAB PO SCH ×2 (08:41→20:14)
[2017-11-09 09:45] LABS: HEMOGLOBIN 11.1 GM/DL (11.6-15.3); MEAN CELL VOLUME 90.3 FL (80.0-100.0); MEAN CORPUSCULAR HEMOGLOBIN 31.3 PG (27.0-34.0); MEAN CORPUSCULAR HGB CONC 34.6 % (32.0-36.0); MEAN PLATELET VOLUME 7.3 FL (7.0-11.0); PLATELET COUNT 433 TH/MM3 (150-450); RED BLOOD COUNT 3.54 MIL/MM3 (4.00-5.30); RED CELL DISTRIBUTION WIDTH 14.2 % (11.6-17.2); WHITE BLOOD COUNT 9.5 TH/MM3 (4.0-11.0)
[2017-11-09] MEDS ORDERED: LEVO500T8 PO (12:54)
[2017-11-09] MEDS ORDERED: PERC5TAB12 PO (12:57)
[2017-11-09] MEDS ORDERED: PANT40TA3 PO (13:14)
--- NOTE | 2017-11-09 13:34 | HHI.DS ---
Discharge Summary Admission Date Nov 04, 2017 at 05:21 Discharge Date: Nov 09, 2017 Admitting Diagnosis upper gi bleed w/ anemia (1) Cerebrovascular accident (CVA) involving right cerebral hemisphere Diagnosis: Principal ICD Codes: I63.9 - Cerebral infarction, unspecified Status: Acute (2) Anemia associated with acute blood loss Diagnosis: Principal ICD Codes: D62 - Acute posthemorrhagic anemia (3) Dysarthria Diagnosis: Principal ICD Codes: R47.1 - Dysarthria and anarthria Status: Acute (4) HTN (hypertension) Diagnosis: Secondary ICD Codes: I10 - Essential (primary) hypertension Status: Chronic (5) Fracture of femoral neck, right, closed Diagnosis: Secondary ICD Codes: S72.001A - Fracture of unspecified part of neck of right femur, initial encounter for closed fracture Status: Resolved (6) Breast CA Diagnosis: Secondary ICD Codes: C50.919 - Malignant neoplasm of unspecified site of unspecified female breast Status: Resolved (7) History of tobacco abuse Diagnosis: Secondary ICD Codes: Z87.891 - Personal history of nicotine dependence (8) History of ETOH abuse Diagnosis: Secondary ICD Codes: Z87.898 - Personal history of other specified conditions (9) UTI (urinary tract infection) Diagnosis: Principal ICD Codes: N39.0 - Urinary tract infection, site not specified Consultants Dr. Mcelroy, GI Dr. Alba, Neurology Dr. Bates, vascular surgery Dr. Madrigal, ICU Procedures 11/05/17 Panendoscope and biopsy with Dr. Myles CBC/BMP: 11/09/17 0858 11/07/17 0825 Significant Findings Laboratory Tests Test 11/06/17 15:00 11/06/17 16:11 11/07/17 08:25 11/08/17 06:42 Urine Color DARK-YELLOW (YELLW/STRAW) Urine Turbidity CLOUDY (CLEAR) Urine Protein 300 mg/dL (NEG-TRACE) Urine Occult Blood TRACE (NEG) Urine Nitrite POS (NEG) Urine Leukocyte Esterase LARGE (NEG) Urine RBC 75 /hpf (0-3) Urine WBC 140 /hpf (0-5) Urine WBC Clumps FEW (NONE) Urine Bacteria MOD /hpf (NONE) Hemoglobin 11.3 GM/DL (11.6-15.3) 11.2 GM/DL (11.6-15.3) 9.3 GM/DL (11.6-15.3) Red Blood Count 3.60 MIL/MM3 (4.00-5.30) 3.01 MIL/MM3 (4.00-5.30) Hematocrit 32.5 % (35.0-46.0) 27.4 % (35.0-46.0) Mean Platelet Volume 6.8 FL (7.0-11.0) Neutrophils (%) (Auto) 80.2 % (16.0-70.0) Lymphocytes (%) (Auto) 8.2 % (9.0-44.0) Monocytes (%) (Auto) 9.5 % (0.0-8.0) Lymphocytes # (Auto) 0.8 TH/MM3 (1.0-4.8) Calcium Level 8.0 MG/DL (8.5-10.1) Estimat Glomerular Filtration Rate 60 ML/MIN (>89) Vitamin B12 Level GREATER THAN 2000 PG/ML Folate 19.4 NG/ML (3.1-17.5) Cholesterol Level 87 MG/DL (120-200) HDL Cholesterol 26.1 MG/DL (40.0-60.0) Test 11/08/17 14:10 11/09/17 08:58 White Blood Count 11.2 TH/MM3 (4.0-11.0) Red Blood Count 3.69 MIL/MM3 (4.00-5.30) 3.54 MIL/MM3 (4.00-5.30) Hemoglobin 11.2 GM/DL (11.6-15.3) 11.1 GM/DL (11.6-15.3) Hematocrit 33.7 % (35.0-46.0) 32.0 % (35.0-46.0) Platelet Count 462 TH/MM3 (150-450) Imaging Last Impressions Neck CTA 11/08/17 0000 Signed Impressions: Service Date/Time: October 23:49 - CONCLUSION: 1. CTA examination is concordant with ultrasound exam. 2. 50%% ostial left subclavian artery stenosis. 3. Tandem 50-60%% stenoses of the proximal right internal carotid artery secondary to mixed predominantly calcified plaque. 4. Approximate 60%% stenosis of the left internal carotid artery origin secondary to mixed predominantly calcified plaque. 5. Severe right external carotid artery origin stenosis. 1. Denilson Tran MD Carotid Artery Ultrasound 11/07/17 0000 Signed Impressions: Service Date/Time: Tuesday, November 07, 2017 19:24 - CONCLUSION: 1. Heavily calcified atheromatous plaque involving both carotid arteries. Velocity evaluation suggests a 50-69%% stenosis bilaterally. 2. Antegrade flow involving both vertebral arteries. Ashutosh Lucero Jr., MD Brain MRI 11/07/17 0000 Signed Impressions: Service Date/Time: Tuesday, November 07, 2017 11:09 - CONCLUSION: 4-5 small areas of increased signal on the diffusion weighted sequences suspicious for multifocal strokes in the right cerebral hemisphere. Correlate for source of emboli. No significant hemorrhage is noted. Diffuse atrophy is present. Vu Aguilar MD Chest X-Ray 11/04/17 0244 Signed Impressions: Service Date/Time: Saturday, November 04, 2017 02:52 - CONCLUSION: No acute disease. No significant change has occurred. Danny Ortega MD Hip and Pelvis X-Ray 11/04/17 0000 Signed Impressions: Service Date/Time: Saturday, November 04, 2017 03:32 - CONCLUSION: 1. Status post right hip prosthesis. 2. No acute fracture joint dislocation. 3. No significant change compared to prior exam. Danny Ortega MD Abdomen Ultrasound 11/04/17 0000 Signed Impressions: Service Date/Time: Saturday, November 04, 2017 16:07 - CONCLUSION: 1. Minimal fluid noted in the right upper quadrant. 2. The liver appears unremarkable. 3. Unremarkable gallbladder. 4. The common bile duct is at the upper limits of normal in size with no evidence of choledocholithiasis. Tk Zhu MD PE at Discharge General: NAD, AAOx3 but with periods of confusion. Chest: CTA Cardiac: Regular Abd: +BS, soft ND/NT Ext: No edema Hospital Course Cerebrovascular accident (CVA) involving right cerebral hemisphere Dysarthria - pt's sister expressed concern about confusion/pt NOT at her usual baseline () - MRI brain (11/07) --> 4- 5 small areas of increased signal intensity c/w multifocal CVA - echocardiogram pending - carotid US heavily calcified atheromatous plaque involving both carotid arteries. Velocity evidence suggesting a 50-69% stenosis bilaterally antegrade flow involving both vertebral arteries - CTA neck reviewed and feels 50% Ostial left subclavian arterial stenosis. Tandem 50-60% stenosis in the proximal right internal carotid artery secondary to Predominantly calcified plaque. Approximately 60% stenosis in the left internal carotid artery origin secondary to mixed predominantly calcified plaque. Severe right external carotid artery origin stenosis - consult placed to vascular surgery, Dr. Bates. No surgery recommended at this time. Patient to follow up with Dr. Bates in 2 weeks - continue to observe of telemetry - NSR (11/07) - Holter monitor obtained but not resulted - 21 day event monitor as an outpatient with [facility] cardiology - request Neurology consult, Dr. Smith discussed case with neurologist cleared to continue Xarelto - B12 >2000, Folate 19.4, TSH 3.430/Free T4 1.44, Ammonia level 27 - Patient will need SNF placement at [place] for PT and PT - pt had revision of hip surgery and then discharged to SNF of xarelto - pt returned to [place] with GIB - xarelto resumed 11/07 - supportive care Anemia associated with acute blood loss - Pt is a 71 y/o WF with hypertension, dyslipidemia, history of melanoma, hx of breast cancer in 1998 s/p chemotherapy and port placement, vitamin B-12 deficiency, history of sternal fracture, osteoporosis osteoarthritis of hiatal hernia. Pt also with hx of tobacco and EtOH use but has quit for the past month. - She was recently admitted to [facility] from 10/29/17 to 11/01/17 after she underwent right NAHOMY due to AVN on 10/29/[address] Pratt. Pt was discharged on Xarelto for DVT prophylaxis - She initially presented to [facility] 11/04/17 with coffee-ground emesis - Hemoglobin initially was at 7.1 at admission. - Pt was transfused with 2 units PRBCs, 2 units FFP and KCentra. - She was started on Protonix and Octreotide gtt. - GI was consulted and pt underwent evaluation with EGD on 11/05/16 --> Severe erosive ulcerated esophagitis, hiatal hernia, gastritis, and duodenal ulcers - GI has recommended that the pt continue on Protonix BID - Protonix gtt changed to po BID on 11/06 - H/H has been stable - Pt stable for transfer out of ICU - GI has cleared the pt to resume anticoagulants, resume Xarelto 10mg po daily on 11/07 - Hgb 11.3 (11/07), 9.3 (11/08) recheck for 1300 11.1 (11/08), 11.1 (11/09) - Supportive care HTN (hypertension) - Pt is on Metoprolol 25mg po BID - BP relatively stable - Cont. to Monitor Fracture of femoral neck, right, closed - Pt originally had right hip closed reduction and proximal screw fixation in [address] Pratt - The right hip hardware was removed in 07/[address] Pratt - Pt had previous right NAHOMY due to AVN on 10/29/[address] Pratt - Anticoagulants on hold due to GIB - GI has cleared her to resume anticoagulants - PT Breast CA Malignant neoplasm of unspecified site of unspecified female breast History of tobacco abuse Personal history of nicotine dependence History of ETOH abuse Personal history of other specified conditions UTI (urinary tract infection) Urine culture revealing Proteus Mirabilis continue Levaquin Pt Condition on Discharge: Stable Discharge Disposition: Discharge to SNF Discharge Instructions DIET: Follow Instructions for: Heart Healthy Diet Activities you can perform: Regular-No Restrictions Follow up Referrals: Cardiology - 3-[address] Roberts Gastroenterology - 3 Weeks with Ashkan Myles MD Neurology - 2 Weeks with Ck Alba MD Orthopedics - 1 Week with Alexander Pratt Jr., MD PCP Follow-up - [address] Cheung Vascular Surgery - 2 Weeks with Sarkis Bates MD New Medications: Levofloxacin (Levofloxacin) 500 Mg Tablet 500 MG PO DAILY for Infection, #3 TAB 0 Refills Pantoprazole (Pantoprazole) 40 Mg Tab 40 MG PO Q12HR for acid reduction, #60 TAB 0 Refills Continued Medications: Atorvastatin (Lipitor) 20 Mg Tab 20 MG PO HS for Cholesterol Management, #30 TAB 0 Refills Docusate Sodium (Colace) 100 Mg Capsule 1 TAB PO BID for Constipation, #30 CONTAINER Megestrol (Megestrol) 40 Mg Tab 40 MG PO QID, TAB 0 Refills Metoprolol Tartrate (Metoprolol Tartrate) 25 Mg Tab 25 MG PO BID, #1 TAB 0 Refills Multiple Vitamin (Thera/Beta-Carotene) 1 Tab Tab 1 TAB PO DAILY for etoh use, #31 TAB Oxycodone-Acetaminophen (Percocet) 5-325 mg Tab 1 TAB PO Q4H PRN for PAIN, #60 TAB 0 Refills (This prescription has been renewed ) Rivaroxaban (Xarelto) 10 Mg Tab 10 MG PO DAILY for Blood Clot Prevention, TAB 0 Refills Discontinued Medications: Rivaroxaban (Xarelto) 10 Mg Tab 10 MG PO DAILY for Blood Clot Prevention, #30 TAB 0 Refills Tramadol (Tramadol) 50 Mg Tab 50 MG PO Q4H PRN for PAIN, TAB 0 Refills Additional Information Patient examined. Assessment and plan formulated with Daysi Aceves PA-C. I agree with the above. Daysi Aceves Nov 09, 2017 13:34 Abdulaziz Smith DO Nov 13, 2017 23:11
--- NOTE | 2017-11-09 14:12 | PD.CAR.PN ---
CVT Progress Note Subjective/Hospital Course: Patient seen Full consult dictated Thanks J Patient with GI bleed then 3 areas of ischemic infarct in frontoparietal area of the right cerebral hemisphere At this point patient is not a surgical candidate for carotid endarterectomy or any surgery for that matter that would include anticoagulation I agree with Dr. Alba, and anticoagulants should be withheld until the MCI area of infarct is decreased to about one third Hence, carotid endarterectomy so the question now but I'll follow with patient in my office in a few weeks and schedule her for repeat CT of the brain and based on that decide whether to go ahead with carotid endarterectomy in the future Objective: Vital Signs Date Time Temp Pulse Resp B/P (MAP) Pulse Ox O2 Delivery O2 Flow Rate FiO2 11/09/17 12:00 98.9 85 18 135/63 (87) 95 11/09/17 08:00 72 11/09/17 08:00 98.6 96 16 175/80 (111) 97 11/09/17 08:00 Room Air 11/09/17 04:00 98.7 89 18 151/93 (112) 96 11/09/17 04:00 Room Air 11/09/17 03:47 90 11/09/17 00:00 98.8 90 18 153/67 (95) 97 11/09/17 00:00 Room Air 11/08/17 23:47 88 11/08/17 20:00 98.4 92 16 128/63 (84) 97 11/08/17 20:00 Room Air 11/08/17 19:47 103 11/08/17 16:00 98.0 97 18 122/57 (78) 99 11/08/17 15:50 90 Labs: Laboratory Tests Test 11/09/17 08:58 White Blood Count 9.5 TH/MM3 (4.0-11.0) Red Blood Count 3.54 MIL/MM3 (4.00-5.30) Hemoglobin 11.1 GM/DL (11.6-15.3) Hematocrit 32.0 % (35.0-46.0) Mean Corpuscular Volume 90.3 FL (80.0-100.0) Mean Corpuscular Hemoglobin 31.3 PG (27.0-34.0) Mean Corpuscular Hemoglobin Concent 34.6 % (32.0-36.0) Red Cell Distribution Width 14.2 % (11.6-17.2) Platelet Count 433 TH/MM3 (150-450) Mean Platelet Volume 7.3 FL (7.0-11.0) Result Diagram: 11/09/17 0858 11/07/17 0825 Sarkis Bates MD Nov 09, 2017 14:12
--- NOTE | 2017-11-09 14:13 | HM ---
Date Performed: 11/07/2017 Time Performed: 20:17:00 HOOKUP DATE: 11/07/17 08:17:00 PM Wed ANALYSIS START TIME: 11/07/2017 8:22:00 PM ANALYSIS END TIME: 11/08/2017 7:51:00 PM PATIENT AGE: 71 PATIENT HEIGHT PATIENT WEIGHT DRUG LIST PATIENT DIAGNOSIS: gi bleed with anemia TEST NARRATIVE: The patient's average heart rate was 88 BPM. Heart rates greater than 120 B PM were noted 1% of the time. No episodes of bradycardia were noted. No pauses exceeding 2.0 sec onds were noted. 24 ventricular ectopics, which represented < 1% of the total beat count, were no penelope. The highest ventricular ectopic frequency occurred from 11:00 PM to 12:00 AM Carlie. During this time 3 VE(s) occurred. Ventricular ectopics were observed as 24 isolated beat(s) only. No couplets or runs were noted. 29 supraventricular ectopics, which represented < 1% of the total beat count, were noted. The highest supraventricular ectopic frequency occurred from 07:00 AM to 08:00 AM Carlie. During this time 14 SVE(s) occurred. No episodes of ST depression (defined as -1.0 mm or more) w ere noted in channel 1. No episodes of ST depression (defined as -1.0 mm or more) were noted in david onur 2. No episodes of ST depression (defined as -1.0 mm or more) were noted in channel 3. NO DIARY G IVEN TO PATIENT TEST INTERPRETATION: The underlying rhythm is Sinus rhythm with average rate 88 bpm and range of 64 to 122 bpm. Rare premature atrial and ventricular contracti ons are seen with rare, short non-sustained atrial runs. No significant pauses are present. A diary i s not available. Signed by : [place]
--- NOTE | 2017-11-09 18:37 | PD.ORT.PN ---
Subjective Subjective Remarks feeling better. admitted for GI bleed and stroke Objective Vitals Vital Signs Date Time Temp Pulse Resp B/P (MAP) Pulse Ox O2 Delivery O2 Flow Rate FiO2 11/09/17 16:52 97 21 11/09/17 16:00 85 11/09/17 16:00 98.4 86 18 136/61 (86) 97 11/09/17 12:00 98.9 85 18 135/63 (87) 95 11/09/17 12:00 84 11/09/17 08:00 72 11/09/17 08:00 98.6 96 16 175/80 (111) 97 11/09/17 08:00 Room Air 11/09/17 04:00 98.7 89 18 151/93 (112) 96 11/09/17 04:00 Room Air 11/09/17 03:47 90 11/09/17 00:00 98.8 90 18 153/67 (95) 97 11/09/17 00:00 Room Air 11/08/17 23:47 88 11/08/17 20:00 98.4 92 16 128/63 (84) 97 11/08/17 20:00 Room Air 11/08/17 19:47 103 I/O 11/08/17 11/08/17 11/08/17 11/09/17 11/09/17 11/09/17 07:00 15:00 23:00 07:00 15:00 23:00 Intake Total 818 ml 522 ml 1000 ml 1100 ml Output Total 1100 ml 800 ml Balance -282 ml 522 ml 1000 ml -800 ml 1100 ml Intake Oral 240 ml IV Total 578 ml 522 ml 1000 ml 1100 ml Output Urine Total 1100 ml 800 ml # Voids 2 # Bowel Movements 0 Result Diagram: 11/09/17 0858 11/07/17 0825 Objective Remarks aaox3. RLE: nvi. wound mostly healed. no erythema, CDI, SILT distally. log roll not painful, neg homans Assessment & Plan Assessment and Plan s/p right NAHOMY 10/29/16 doing well as far as right hip qday dressing change until heals. do not get wet 50% WB, ROM as tolerated OOB with PT TID, aggressive gait and balance training xarelto as prescribed postop dvt ppx for 30 day postop ok to dc back to rehab f/u ortho 1-2 wks Alexander Pratt Jr., MD Nov 09, 2017 18:37
== END 2017-11-09 20:46 | DRG 377 ==
LOC: NEPC 02:26 → NEDA 05:21 → HIMW 08:22 → N04A 11-07 20:29
PROVIDERS: ADMIT Hospitalist; ATTEND Hospitalist
PROC: 30233K1 Transfusion of Nonautologous Frozen Plasma into Peripheral Vein, Percutaneous Approach (ICD-10-PCS; principal; 2017-11-04)
PROC: 30233N1 Transfusion of Nonautologous Red Blood Cells into Peripheral Vein, Percutaneous Approach (ICD-10-PCS; 2017-11-04)
PROC: 0DB98ZX Excision of Duodenum, Via Natural or Artificial Opening Endoscopic, Diagnostic (ICD-10-PCS; 2017-11-05)
PROC: 0DB68ZX Excision of Stomach, Via Natural or Artificial Opening Endoscopic, Diagnostic (ICD-10-PCS; 2017-11-05)
PROC: 0DB38ZX Excision of Lower Esophagus, Via Natural or Artificial Opening Endoscopic, Diagnostic (ICD-10-PCS; 2017-11-05)
DX: K26.4 Chronic or unspecified duodenal ulcer with hemorrhage (principal); I63.9 Cerebral infarction, unspecified; R47.1 Dysarthria and anarthria; N39.0 Urinary tract infection, site not specified; B96.4 Proteus (mirabilis) (morganii) as the cause of diseases classified elsewhere; K22.10 Ulcer of esophagus without bleeding; D62 Acute posthemorrhagic anemia; E88.09 Other disorders of plasma-protein metabolism, not elsewhere classified; K44.9 Diaphragmatic hernia without obstruction or gangrene; K29.70 Gastritis, unspecified, without bleeding; E83.39 Other disorders of phosphorus metabolism; I10 Essential (primary) hypertension; E53.8 Deficiency of other specified B group vitamins; M81.0 Age-related osteoporosis without current pathological fracture; E78.5 Hyperlipidemia, unspecified; G62.9 Polyneuropathy, unspecified; I65.23 Occlusion and stenosis of bilateral carotid arteries; Z79.02 Long term (current) use of antithrombotics/antiplatelets; M19.90 Unspecified osteoarthritis, unspecified site; Z87.891 Personal history of nicotine dependence; Z96.641 Presence of right artificial hip joint; Z85.3 Personal history of malignant neoplasm of breast; Z92.21 Personal history of antineoplastic chemotherapy; Z17.1 Estrogen receptor negative status [ER-]; Z85.820 Personal history of malignant melanoma of skin
CPT/HCPCS: 36430; 70498; 70551; 71045; 73502; 76700; 76937; 80048; 80053; 80061; 81001; 82140; 82607; 82746; 82948; 83605; 83690; 83735; 84100; 84132; 84439; 84443; 85014; 85018; 85025; 85027; 85384; 85610; 85730; 86850; 86900; 86901; 86920; 86927; 87077; 87086; 87186; 87641; 88305; 88312; 93005; 93225; 93226; 93306; 93880; 94150; 96365; 96366; 96375; 96376; C9113; C9132; J0360; J0610; J1940; J1956; J2270; J2354; J2405; J3475; J3480; J7030; J7040; J7050; P9016; P9017; Q9967

== ENCOUNTER 2017-11-15 00:57 | Emergency (ER) | payer MEDICARE ==
[~2017-11-15] VITALS: Ht 162.6 cm; Wt 52.3 kg
[~2017-11-15 00:57] MED LIST changes: +LEVO500T8 PO; +PANT40TA3 PO; -TRAM50TA PO
[2017-11-15 01:03] VITALS: BP 165/70; PULSE 90; RESP 20; TEMP 99
[2017-11-15] MEDS ORDERED: LIDOCAINE HCL 1% 20 ML VIAL INFIL ONE (01:45)
[2017-11-15] MEDS ORDERED: LIDOCAINE HCL 1% 20 ML VIAL ONE (02:24)
--- NOTE | 2017-11-15 02:39 | PD ---
HPI . Right thigh pain Chief Complaint: Edema Time Seen by Provider: 01:20 Travel History International Travel<30 days: No Contact w/Intl Traveler<30days: No Traveled to known affect area: No History of Present Illness HPI This patient is status post right total hip replacement on 10/29. She was discharged on Xarelto. She suddenly developed a GI bleed. Xarelto was discontinued. She had a complicated inpatient course when she was here with the GI bleed. [facility] She comes in to [facility] with increased pain and swelling of her right thigh. She is not a particularly good historian. It seems that she has some confusion since her last hospitalization about 10 days ago. 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 PFSH Past Medical History Arthritis: Yes Asthma: No Autoimmune Disease: No Anxiety: No Depression: No Heart Rhythm Problems: No Cancer: Yes (RIGHT BREAST CA, SKIN CA) Cardiovascular Problems: Yes High Cholesterol: Yes Chemotherapy: Yes Chest Pain: No Congestive Heart Failure: No COPD: No Cerebrovascular Accident: No Diabetes: No Diminished Hearing: No Endocrine: No Gastrointestinal Disorders: Yes GERD: No Glaucoma: No Genitourinary: No Headaches: No Hepatitis: No Hiatal Hernia: No Hypertension: Yes Immune Disorder: No Kidney Stones: No Musculoskeletal: Yes Neurologic: Yes Psychiatric: No Reproductive: No Respiratory: No Immunizations Current: Yes Migraines: No Myocardial Infarction: No Radiation Therapy: Yes Renal Failure: No Seizures: No Sickle Cell Disease: No Sleep Apnea: No Thyroid Disease: No Ulcer: No Menopausal: Yes Past Surgical History Abdominal Surgery: No AICD: No Appendectomy: No Arteriovenous Shunt: No Cardiac Surgery: No Cholecystectomy: No Ear Surgery: No Endocrine Surgery: No Eye Surgery: No Genitourinary Surgery: No Gynecologic Surgery: No Insulin Pump: No Joint Replacement: No Oral Surgery: Yes (TONSILLECTOMY) Pacemaker: No Thoracic Surgery: Yes (RIGHT BREAST LUMPECTOMY, PORT PLACEMENT / REMOVAL ) Tonsillectomy: Yes Other Surgery: Yes (LEFT WRIST/ RIGHT BREAST, RIGHT LYMPHNODES/lumpectomy) Social History Alcohol Use: No (2 DAILY/ QUIT 1 MONTH AGO) Tobacco Use: No (1 PPD/ QUIT 1 MONTH AGO) Substance Use: No Allergies-Medications (Allergen,Severity, Reaction): Coded Allergies: penicillin G (Verified Allergy, Severe, 11/04/17) pt. states reaction was so long ago she no longer remembers reaction Sulfa (Sulfonamide Antibiotics) (Verified Adverse Reaction, Intermediate, 11/04/17) pt. states she gets yeast infections while on sulfa drugs Reported Meds & Prescriptions Reported Meds & Active Scripts Active Pantoprazole (Pantoprazole Sodium) 40 Mg Tab 40 Mg PO Q12HR Percocet (Oxycodone-Acetaminophen) 5-325 mg Tab 1 Tab PO Q4H PRN Levofloxacin 500 Mg Tablet 500 Mg PO DAILY Colace (Docusate Sodium) 100 Mg Capsule 1 Tab PO BID Thera/Beta-Carotene (Multiple Vitamin) 1 Tab Tab 1 Tab PO DAILY Reported Xarelto (Rivaroxaban) 10 Mg Tab 10 Mg PO DAILY Metoprolol Tartrate 25 Mg Tab 25 Mg PO BID Megestrol (Megestrol Acetate) 40 Mg Tab 40 Mg PO QID Lipitor (Atorvastatin Calcium) 20 Mg Tab 20 Mg PO HS Review of Systems Except as stated in HPI: all other systems reviewed are Neg General / Constitutional: No: Fever, Chills Physical Exam Narrative GENERAL: Awake and alert and in no acute distress. She seems a little bit confused and asks the same questions over and over again. SKIN: Warm and dry. She has a large hematoma on the right thigh associated with her recent surgical scar which is tender to palpation. It is not red or hot. HEAD: Normocephalic/atraumatic. EYES: Pupils are equal. Extraocular movements are intact. NECK: Normal range of motion. CARDIOVASCULAR: Regular rate and rhythm. RESPIRATORY: Nonlabored respirations. MUSCULOSKELETAL: Her right hip has no limitation in movement. NEUROLOGICAL: Nonfocal. PSYCHIATRIC: Appropriate mood and affect. Data Data Last Documented VS Vital Signs Date Time Temp Pulse Resp B/P (MAP) Pulse Ox O2 Delivery O2 Flow Rate FiO2 11/15/17 01:12 100 Room Air 11/15/17 01:03 99.0 90 20 165/70 (101) Orders Orders Lidocaine 1% Inj (Xylocaine 1% Inj) (11/15/17 01:45) Lidocaine 1% Inj (Xylocaine 1% Inj) (11/15/17 02:24) MDM Medical Decision Making Medical Screen Exam Complete: Yes Emergency Medical Condition: Yes Differential Diagnosis Differential diagnosis includes but is not limited to simple hematoma, wound infection Narrative Course Patient presents with pain and swelling of her right lateral thigh. She is status post a right total hip arthroplasty on 10/29. She has a hematoma on her right lateral thigh. No evidence of infection such as redness or warmth. She is not running a fever. Procedures Procedure Narrative Her right thigh was cleaned with alcohol and then anesthetized with 1% plain lidocaine, 10 cc. The area of greatest fluctuance was then pierced with a 16- gauge needle. I drained a little over 20 cc of then, old appearing blood from the wound. She tolerated the procedure well without complication. Diagnosis Primary Impression: Hematoma of right thigh Qualified Codes: S70.11XA - Contusion of right thigh, initial encounter Patient Instructions: General Instructions, Hematoma (ED) Disposition: 01 DISCHARGE HOME Condition: Stable Anna Cuevas MD Nov 15, 2017 02:39
[2017-11-15] MEDS ORDERED: oxyCODONE/ACETAMINOPHEN 5 MG/325 MG TAB PO ONE (03:30)
[2017-11-15 03:36] VITALS: BP 167/77; PULSE 97; RESP 18; O2SAT 100
[2017-11-15 06:37] VITALS: BP 160/78; PULSE 89; RESP 18; O2SAT 100
[2017-11-15 07:10] VITALS: RESP 16
== END 2017-11-15 08:25 | disposition home or self-care (01) ==
LOC: NEPC 00:57 → NEPD 08:25
DX: L76.32 Postprocedural hematoma of skin and subcutaneous tissue following other procedure (principal); E78.00 Pure hypercholesterolemia, unspecified; I10 Essential (primary) hypertension; Z88.0 Allergy status to penicillin; Z88.2 Allergy status to sulfonamides; Z96.641 Presence of right artificial hip joint
CPT/HCPCS: 10140